=== PATIENT | female | born 1960 | race Caucasian/White ===

== ENCOUNTER 2019-12-09 12:36 | Outpatient (CLI) | payer BC, SELFPAY ==
--- NOTE | 2019-12-09 12:48 | MR_ITS ---
WS: [id number] MRI LUMBAR SPINE NONCONTRAST HISTORY: INTERVERTEBRAL DISC DISORDER WITH RADICULOPATHY OF LUMBOSACRAL SPINE COMPARISON: 08/05/2018 TECHNIQUE: Sagittal and axial multisequence imaging is submitted. Multilevel disc bulging and osteophytosis throughout the cervical and thoracic spines. Cord contact b y disc osteophyte disease at multiple levels. Most significant at C6-7, T5-6 and T9-10. Degenerative RIGHT rotoscoliosis of the lumbar spine with mild straightening. Severe disc space narrowing and desiccation and hypertrophic osteophyte formation throughout the lumb ar vertebral bodies. Reactive marrow edema involving the endplates of L1 and 2 and L4 and L5. Conus terminates normally at L2. L1-L2: Asymmetric disc bulging and osteophytosis. Disc bulges to the LEFT with mild contact on the ve ntral thecal sac. LEFT subarticular recess stenosis and mild foraminal stenosis. L2-L3: Diffuse asymmetric disc bulging greatest to the LEFT. Mild facet and ligamentum flavum arthrop athy. Mild LEFT subarticular recess stenosis. Similar to the prior study. There is an additional cent ral disc protrusion which is stable. L3-L4: Diffuse asymmetric disc bulging and osteophytosis. Disc is extending asymmetrically to the RIG HT. Central disc protrusion. Combination of factors is causing a mild central, RIGHT subarticular rec ess and foraminal stenosis. L4-L5: Diffuse asymmetric disc bulging with a central disc protrusion and marked facet arthropathy. M oderate RIGHT foraminal stenosis. Mild central, subarticular recess and LEFT foraminal stenosis. Tammy lar to the prior study. L5-S1: Diffuse asymmetric disc bulging and facet arthropathy. Central disc protrusion with foraminal stenosis. Severe bilateral foraminal stenosis, similar to the prior study. RIGHT renal cyst measures 1.2 cm. MR/MR lumbar spine wo con* [id number] IMPRESSION: 1. Moderate to severe multilevel advanced spondylitic changes throughout the l umbar spine without significant progression. 2. Severe bilateral foraminal stenosis at L5-S1 due to disc, osteophyte and fa cet disease. 3. Moderate to severe central L2-3 stenosis. No progression. 4. Moderate RIGHT foraminal stenosis at L4-5 without significant progression. 5. Additional mild, multilevel central, subarticular recess and foraminal sten osis as described above.
--- NOTE | 2019-12-09 12:50 | XR_ITS ---
WS: [id number] LATERAL LUMBAR SPINE: 3 view. Lateral radiographs are performed in upright neutral, flexion and extension to the patient's toleranc e. HISTORY: INTERVERTEBRAL DISC DISORDER WITH RADICULOPATHY OF LUMBOSACRAL COMPARISON: 04/13/2015 Severe multilevel degenerative disc disease and osteophytosis. Facet joint arthropathy. Large osteoph ytes extend anterior and posterior from the endplates. With flexion and extension no instability is evident. XR/XR lumbar spine f/e only [id number] IMPRESSION: Severe lumbar spondylosis without instability.
== END 2019-12-09 12:37 | disposition home or self-care (01) ==
LOC: RADWPI 12:39
PROVIDERS: Family Provider Family Medicine; PCP Family Medicine; Visit Provider Licensed Practical Nurse
DX: M51.17 Intervertebral disc disorders with radiculopathy, lumbosacral region (principal); M47.896 Other spondylosis, lumbar region; M48.07 Spinal stenosis, lumbosacral region; M48.061 Spinal stenosis, lumbar region without neurogenic claudication
CPT/HCPCS: 72120; 72148

== ENCOUNTER → 2020-01-05 08:31 | Outpatient (BNVA) | payer BC, SELFPAY | PROVIDERS: Family Provider Family Medicine; PCP Family Medicine; Referring Provider Licensed Practical Nurse; Visit Provider Psychiatry & Neurology Neurology | DX: M54.5 Low back pain (principal); M79.604 Pain in right leg; M79.605 Pain in left leg | CPT/HCPCS: 95886; 95909 ==

== ENCOUNTER 2020-10-11 10:30 | Outpatient (CLI) | payer BC, SELFPAY ==
--- NOTE | 2020-10-11 14:49 | PFTS_ITS ---
Date of Study:10/11/20 Date of Dictation: 10/13/2020 MECHANICS: Forced vital capacity (FVC) is normal. Forced expiratory volume in one second (FEV1) is . Normal FEV1/FVC is normal. FLOW VOLUME LOOP: Normal . LUNG VOLUMES: Not measured DIFFUSING CAPACITY FOR CARBON MONOXIDE: Not measured . INTERPRETATION: The spirometry is normal. MTDD
== END 2020-10-11 10:31 | disposition home or self-care (01) ==
PROVIDERS: PCP Family Medicine; Visit Provider Nurse Practitioner Family
DX: R06.02 Shortness of breath (principal)
CPT/HCPCS: 94010

== ENCOUNTER 2020-10-13 14:53 | Outpatient (CLI) | payer BC, SELFPAY ==
--- NOTE | 2020-10-13 14:57 | XR_ITS ---
WS: [id number] SCREENING DEXA SCAN [facility] CLINICAL INFORMATION: EARLY SURGICAL MENOPAUSE, SCREENING FOR OSTEOPOROSIS COMPARISON: None. FINDINGS: The L1-L4 bone mineral density measures 1.549 g/cm2. This corresponds to a T score score of 3.1 and Z score of 3.9. Left femoral neck bone mineral density measures 1.195 g/cm2. This corresponds to a T score of 1.5 and Z score of 2.1. Right femoral neck bone mineral density measures 1.216 g/cm2. This corresponds to a T score 1.7of and Z score of 2.3. Mean femoral neck bone mineral density measures 1.206 g/cm2. This corresponds to a T score of 1.6 and Z score of 2.2. XR/XR DEXA axial skeleton* [id number] IMPRESSION: Normal bone mineralization. Patient's FRAX calculated 10 year probability for major osteoporotic fracture i s 4.8 % and osteoporotic hip fracture is 0.1%.
== END 2020-10-13 14:54 | disposition home or self-care (01) ==
LOC: RADWPI 14:56
PROVIDERS: PCP Family Medicine; Visit Provider Nurse Practitioner Family
DX: Z13.820 Encounter for screening for osteoporosis (principal)
CPT/HCPCS: 77080

== ENCOUNTER 2020-10-28 20:00 | Outpatient (CLI) | payer BC, SELFPAY | END 2020-10-28 20:01 | disposition home or self-care (01) | LOC: SLEEP 10-29 10:18 | PROVIDERS: PCP Family Medicine; Visit Provider Nurse Practitioner Family | DX: R06.83 Snoring (principal); R53.83 Other fatigue; G47.33 Obstructive sleep apnea (adult) (pediatric) | CPT/HCPCS: 95810 ==

== ENCOUNTER 2021-02-10 20:00 | Outpatient (CLI) | payer BC, SELFPAY | END 2021-02-10 20:01 | disposition home or self-care (01) | LOC: SLEEP 02-11 10:24 | PROVIDERS: PCP Family Medicine; Visit Provider Nurse Practitioner Family | DX: G47.33 Obstructive sleep apnea (adult) (pediatric) (principal) | CPT/HCPCS: 95811 ==

== ENCOUNTER 2021-03-11 06:37 | Outpatient (CLI) | payer BC, SELFPAY ==
--- NOTE | 2021-03-11 06:47 | CT_ITS ---
WS: [id number] LDCT LUNG CANCER SCREENING TECHNIQUE: Noncontrast CT of the chest with coronal and sagittal reformatted images. CLINICAL INFORMATION: JLUIS DEPENDENT COMPARISON: September 2019 DLP: 52.6 mGy.cm DIvol: 1.[address] scans at [facility] use at least one of these dose optimization techniques: automat ed exposure control; mA and/or kV adjustment per patient size (includes targeted exams where dose is matched to clinical indication); or iterative reconstruction. FINDINGS: Mild chronic emphysematous changes. No acute pulmonary infiltrates. No focal pneumonia or pleural flu id. Atelectasis left lower lobe. Aortic calcification. No mediastinal or hilar lymphadenopathy. Adren al glands are normal. Normal GE junction. Lobulated lesion upper pole left kidney measuring 1.7 cm pr eviously demonstrated to represent renal cyst on prior ultrasound. Hypertrophic changes thoracic spin e. CT/CT lung screening [id number] IMPRESSION: LUNG-RADS: 2-Benign Appearance or Behavior FOLLOW UP: 12 Month: Continue annual screening with LDCT
== END 2021-03-11 06:38 | disposition home or self-care (01) ==
LOC: CT 06:38
PROVIDERS: PCP Family Medicine; Visit Provider Nurse Practitioner Family
DX: Z12.2 Encounter for screening for malignant neoplasm of respiratory organs (principal); F17.210 Nicotine dependence, cigarettes, uncomplicated
CPT/HCPCS: 71271

== ENCOUNTER 2021-04-15 10:43 | Outpatient (CLI) | payer BC, SELFPAY ==
--- NOTE | 2021-04-15 10:49 | MM_ITS ---
WS: [id number] BILATERAL SCREENING DIGITAL MAMMOGRAM WITH CAD HISTORY: SCREENING COMPARISON: 02/21/2019 Bilateral CC and MLO views submitted. Computer aided detection analyzed. Breast composition: There are scattered areas of fibroglandular density. No suspicious masses, microc alcifications or architectural distortion. Benign calcification LEFT breast. MM/[place] [id number] IMPRESSION: BI-RADS: 2-Benign FOLLOW UP: 1 Year Follow-up
== END 2021-04-15 10:44 | disposition home or self-care (01) ==
LOC: RADSHAW 10:47
PROVIDERS: PCP Family Medicine; Visit Provider Nurse Practitioner Family
DX: Z12.31 Encounter for screening mammogram for malignant neoplasm of breast (principal)
CPT/HCPCS: 77067

== ENCOUNTER 2021-06-29 13:37 | Outpatient (CLI) | payer BC, SELFPAY ==
--- NOTE | 2021-06-29 13:30 | USCV_ITS ---
Jennifer Wilson Age: 60 Gender: F : 1960 Exam Date: 06/29/2021 14:01 Ordering Phys: Merle Plummer MD ([email or web address]) Technologist: Kayla Moreno [place] [facility] [place]: SOB, CHEST PAIN BP: 130 / 80 HR: 71 Rhythm: Sinus Technical Quality: Adequate MEASUREMENTS (Male / Female) Normal Values 2D ECHO LV Diastolic Diameter PLAX 4.6 cm 4.2 - 5.9 / 3.9 - 5.3 cm LV Systolic Diameter PLAX 2.8 cm IVS Diastolic Thickness 1.3 cm 0.6 - 1.0 / 0.6 - 0.9 cm IVS Systolic Thickness 2.0 cm LVPW Diastolic Thickness 1.4 cm 0.6 - 1.0 / 0.6 - 0.9 cm LVPW Systolic Thickness 1.8 cm LVOT Diameter 2.0 cm LV Ejection Fraction 2D Teich 69.4 % LV Ejection Fraction MOD 2C 54.7 % LV Ejection Fraction 2C AL 52.2 % LA Diameter 2.6 cm LA Width 2.7 cm LA Height 3.8 cm RA Width 3.0 cm RA Height 3.9 cm Aorta at Sinotubular Diameter 2.5 cm DOPPLER AV Peak Velocity 151.0 cm/s LVOT Peak Velocity 92.0 cm/s AV Area Cont Eq vti 1.8 cm squared AV Area Cont Eq pk 2.0 cm squared MV Peak Velocity 107.0 cm/s MV Area PHT 5.0 cm squared Mitral E to A Ratio 1.0 MV E' Velocity 48.0 cm/s Mitral E to MV E' Ratio 7.8 Mitral E to LV E' Lateral Ratio 7.5 Mitral E to LV E' Septal Ratio 8.2 TR Peak Velocity 364.2 cm/s TR Peak Gradient 53.0 mmHg TR Mean Velocity 466.7 cm/s TR Mean Gradient 85.6 mmHg TR Velocity Time Integral 155.6 cm TV Peak E Velocity 60.0 cm/s Right Atrial Pressure 3.0 mmHg Pulmonary Artery Systolic Pressu 56.0 mmHg PV Peak Velocity 92.0 cm/s RV Acceleration Time 0.1 s RV Ejection Time 0.3 s RV AcT/ET 0.2 FINDINGS Left Ventricle Normal left ventricular cavity size. Normal left ventricular systolic function. No regional wall motion abnormalities. Left ventricular ejection fraction is estimated at 60 %. Grade I/IV diastolic dysfunction (abnormal relaxation filling pattern), normal to mildly elevated filling pressures. Right Ventricle The right ventricle is normal in size and function. Moderate pulmonary hypertension, RVSP 56 mmHg. Right Atrium The right atrium is normal in size. Left Atrium The left atrium is normal in size. Mitral Valve Moderately thickened mitral valve. Moderate mitral annular calcification. No mitral valve stenosis. No mitral valve regurgitation. Aortic Valve Structurally normal aortic valve without significant sclerosis or stenosis. There is no aortic regurgitation. Tricuspid Valve Mild tricuspid valve regurgitation. Pulmonic Valve Structurally normal pulmonic valve without significant stenosis. There is no pulmonic regurgitation. Pericardium Normal pericardium without effusion. Aorta Normal ascending aorta dimension. CONCLUSIONS 1-Normal left ventricular cavity size. Normal left ventricular systolic function. No regional wall motion abnormalities. Left ventricular ejection fraction is estimated at 60 %. Grade I/IV diastolic dysfunction (abnormal relaxation filling pattern), normal to mildly elevated filling pressures. 2-No significant valve abnormalities. 3-There is no pericardial effusion. 4-The right ventricle is normal in size and function. Moderate pulmonary hypertension, RVSP 56 mmHg. 5-Right atrial pressure is around 15 mm of mercury. 6-No significant change since the prior echocardiogram study of 04/13/2016. Merle Plummer MD (Electronically Signed) Final Date: 06 July 2021 21:45 S
== END 2021-06-29 13:38 | disposition home or self-care (01) ==
LOC: RAD 13:42
PROVIDERS: PCP Family Medicine; Visit Provider Internal Medicine Cardiovascular Disease
DX: R06.02 Shortness of breath (principal); R07.9 Chest pain, unspecified; I27.20 Pulmonary hypertension, unspecified
CPT/HCPCS: 93306

== ENCOUNTER 2022-11-11 10:56 | Observation (INO) | payer BC, SELFPAY ==
[2022-11-11] VITALS (72 sets, daily range): BP systolic 80–123; BP diastolic 54–82; PULSE 68–121; RESP 8–26; TEMP 36.8; O2SAT 82–100
--- NOTE | 2022-11-11 11:00 | PC.NURSE ---
PT NOTED TO HAVE CRACKLES IN LUNG BASES BILATERAL UPON AUSCULTATION
--- NOTE | 2022-11-11 11:00 | ECG_ITS ---
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 Measurements Intervals [place] Rate: 120 P: 58 WI: 162 QRS: 84 QRSD: 77 T: 51 QT: 370 QTc: 523 Interpretive Statements SINUS TACHYCARDIA NONSPECIFIC T-WAVE ABNORMALITY Compared to ECG 11/05/2016 23:26:16 Short WI interval no longer present T-wave abnormality still present Electronically Signed On 11-12-2022 8:21:16 REINFORCING METAL WORKER by Charlotte Baron M.D. [id number]
[2022-11-11 11:02] LABS: Glucose Point of Care 252 mg/dL (70-110)
--- NOTE | 2022-11-11 11:06 | CTR_ITS ---
PROCEDURE INFORMATION: Exam: CT Head Without Contrast Exam date and time: 11/11/2022 12:05 PM Age: 61 years old Clinical indication: Altered mental status/memory loss; Additional info: AMS TECHNIQUE: Imaging protocol: Computed tomography of the head without contrast. Radiation optimization: All CT scans at this facility use at least one of these dose optimization techniques: automated exposure control; mA and/or kV adjustment per patient size (includes targeted exams where dose is matched to clinical indication); or iterative reconstruction. COMPARISON: No relevant prior studies available. RADIATION DOSE METRICS: Total DLP (mGy-cm): 1055.88 FINDINGS: Brain: Normal. No hemorrhage. Unremarkable white matter. No mass effect. Cerebral ventricles: No ventriculomegaly. Paranasal sinuses: Visualized sinuses are unremarkable. No fluid levels. Mastoid air cells: Visualized mastoid air cells are well aerated. Bones/joints: Unremarkable. No acute fracture. Soft tissues: Unremarkable. CT/CT head wo con* [id number] IMPRESSION: No acute intracranial abnormality.
[2022-11-11 11:08] LABS: ABG PCO2 54.2 mmHg (35-45); ABG PH Result 7.35 (7.35-7.45); Alveolar-Arterial Oxygen Gradi 3.4 mmHg (5-10); Arterial Blood Gas Hematocrit 42.8 % (37-47); Base Excess ABG 3.3 mmol/L (-2.0-2.0); Blood Gas Allen Test Pos; Blood Gas Operator Identificat WALCI; Blood Gas Sample Site Radial, left; Blood Gas Sample Type Arterial; Carboxyhemoglobin 4.9 %THgb (0.4-20.1); HCO3 ABG 30.2 mmol/L (22-26); HGB O2 Sat 88.5 % (95-100); Ionized Calcium Level - ABG 1.2 mmol/L (1.1-1.4); Methemoglobin 0.4 % (0.4-1.5); Oxygen Device NC; Oxygen Saturation ABG 93.4; PO2 ABG 59.5 mmHg (80.0-100.0); Potassium Level - ABG 3.7 mmol/L (3.5-5.0)
--- NOTE | 2022-11-11 11:09 | ED_ITS ---
HPI - General Adult General: Chief complaint: Shortness of Breath/Dyspnea Stated complaint: RESP DISTRESS; AMS Time Seen by Provider: 11/11/22 11:04 Source: patient Mode of arrival: ambulatory History of Present Illness: 61-year-old female brought in by EMS. The field report was that she was in respiratory distress and unresponsive with a GCS of 7. She was given Narcan in the field although they states she did not have significant response to it. Her oxygen sat initially on room air was 70%. She is also given 125 of Solu-Medrol. She does wear CPAP at home has not been wearing it last night. Patient became more responsive during the course of the visit while the work-up was being completed family and was at the bedside. Patient tells me initially said she was not sick until last night later in the conversation she did states she did been coughing intermittently for the last couple of weeks. Family was concerned this morning because she had not showed up for something she was anticipated to be at and they went over to check on her they found her poorly responsive and she had vomited they aroused her health a helena cleaned up but she remained in bed and continued to not respond well and seemed to have difficulty breathing when it daughter went back to check on her she reported her as being cyanotic. EMS was called and they brought her to the emergency room. When she arrived here she was drowsy but was able to answer questions she knew where she was what time it was in what it occurred EMS was called. She became more more alert and awake during the course of the ER visit while work-up was being done. She denies any chest or abdominal pain she does recall that she vomited. She does admit to the use of marijuana marijuana but denies use of any other drugs or alcohol last night. Onset (ago): day(s) Severity: severe Relieving factors: none Exacerbating factors: none Associated symptoms: Reports confusion, cough, decreased appetite, malaise, nausea and short of breath; Deny chest pain, diaphoresis, dyspnea, fevers/chills, headache(s), rash, palpita tions, seizures, syncope, vomiting or weakness Treatments prior to arrival: other (Oxygen DuoNebs Narcan and Solu-Medrol) Review of Systems Const: Reports: malaise; Denies: fever(s), chills, fatigue or diaphoresis ENMT: Denies: throat pain, ear or mastoid pain, nasal discharge or nasal congestion Card: Denies: chest pain, palpitations or syncope Resp: Denies: dyspnea, productive cough, non-productive cough or wheezing GI: Reports: nausea; Denies: abdominal pain, vomiting or diarrhea : Denies: flank pain, difficulty voiding, dysuria, urinary frequency or urinary urgency Skin/Breast: Denies: rash Neuro: Reports: confusion; Denies: headache(s) PFSH ED PFSH: Medical History Anxiety disorder COPD (chronic obstructive pulmonary disease) Depression Displacement of lumbar disc with radiculopathy Fibromyalgia Hypercholesterolemia Surgical History H/O section H/O: hysterectomy History of carpal tunnel surgery Family History Grandfather CAD (coronary artery disease) Grandmother CAD (coronary artery disease) Diabetes Hypertension Brother Diabetes Father Hypertension Mother Hypertension Social History Alcohol intake: never Lives independently: Yes Household members: spouse Marital status: Current occupational status: employed History of recent travel: No Physical Exam Const: COMMON NORMALS: no acute distress GENERAL APPEARANCE: cooperative and comfortable ORIENTATION/CONSCIOUSNESS: Yes awake, Yes oriented to person, Yes oriented to place and Yes oriented to time HENMT: COMMON NORMALS: normocephalic and atraumatic HEAD & SCALP: normocephalic and atraumatic Resp: AUSCULTATION: rhonchi, wheezes and diminished lung sounds on the right Cardio: COMMON NORMALS: regular rhythm and No murmurs present (Cardio) RATE: tachycardic RHYTHM: regular rhythm GI: COMMON NORMALS: Soft to palpation and No hepatosplenomegaly present AUSCULTATION: Yes normoactive bowel sounds PALPATION: Yes Soft to palpation, No Tenderness to palpation present (GI), No Guarding due to palpation present ( GI) and Yes No hepatosplenomegaly present Extremity: COMMON NORMALS: normal to inspection, capillary refill normal, no clubbing, cyanosis or edema, no calf tenderness and no pedal edema Neuro: SENSORIUM/ORIENTATION: Yes oriented to person, Yes oriented to place and Yes oriented to time Skin: COMMON NORMALS: no rashes or lesions noted GENERAL SKIN EXAM: no rashes or lesions noted Course Vital Signs: Vital signs: Vital Signs Pulse Rate 104 H 11/11/22 11:25 Respiratory Rate 16 11/11/22 11:25 Blood Pressure 120/62 11/11/22 11:25 Pulse Oximetry 95 11/11/22 11:25 Oxygen Delivery Me thod 11/11/22 11:03 Oxygen Flow Rate 2 11/11/22 11:20 MDM - General Adult Medical Decision Making Multilobar pneumonia on the right. Patient desats significantly with minimal ambulation at the bedside when on room air. She desatted into the mid low 80s. With a history of concerned about aspiration. Patient has listed allergy to penicillin but when I asked her she cannot recall what happened she is taken multiple rounds of amoxicillin and Augmentin as an adult without any complications allergy was removed from her list she started on Zosyn and Levaquin. Discussed with hospitalist orders written will admit to the ICU because of her presenting nonresponsiveness and fairly significant hypoxia. Medical Records I reviewed the patient's medical records. Lab Data I reviewed the patient's lab results. 11/11/22 11:11 11/11/22 11:[address] 11/11/22 11:06 IMPRESSION: No acute intracranial abnormality. Chest X-Ray 11/11/22 11:59 IMPRESSION: 1. Multifocal areas of patchy density in the right lung are noted, most consistent with infectious infiltrates. 2. Degenerative changes of the spine. ADDENDUM: 11/11/22 [id number] THIS REPORT CONTAINS FINDINGS THAT MAY BE CRITICAL TO PATIENT CARE. The findings were verbally communicated via telephone conference with JOSE Flynn at 12:25 PM INFORMATION CLERK [employer] on 11/11/2022. The findings were acknowledged and understood. Laboratory Results WBC 9.1 10^3/uL (4.0-10.0) 11/11/22 11:11 RBC 4.76 10^6/uL (4.1-5.3) 11/11/22 11:11 Hgb 14.2 g/dL (11.5-15.3) 11/11/22 11:11 Hct 44.4 % (37.0-47.0) 11/11/22 11:11 MCV 93.3 fl (81-99) 11/11/22 11:11 MCH 29.8 pg (28.0-34.0) 11/11/22 11:11 MCHC 32.0 g/dL (30.0-36.0) 11/11/22 11:11 RDW 13.7 % (12.1-15.1) 11/11/22 11:11 Plt Count 244 10^3/cmm (130-400) 11/11/22 11:11 MPV 9.7 fL (7.4-10.4) 11/11/22 11:11 Neut % (Auto) 87.5 % 11/11/22 11:11 Lymph % (Auto) 10.8 % 11/11/22 11:11 [place] % (Auto) 1.1 % 11/11/22 11:11 Eos % (Auto) 0.1 % 11/11/22 11:11 Baso % (Auto) 0.3 % 11/11/22 11:11 Neut # (Auto) 7.92 10^3/uL (1.8-7.7) H 11/11/22 11:11 Lymph # (Auto) 1.0 10^3/uL (0.8-4.8) 11/11/22 11:11 [place] # (Auto) 0.1 10^3/uL (0.2-0.9) L 11/11/22 11:11 Eos # (Auto) 0.0 10^3/uL (0.0-0.8) 11/11/22 11:11 Baso # (Auto) 0.0 10^3/uL (0.0-0.1) 11/11/22 11:11 Nucleated RBC % (auto) 0 % 11/11/22 11:11 Nucleated RBCs # 0.0 /100WBC 11/11/22 11:11 Specimen Type Arterial 11/11/22 11:00 Sample Site Radial, left 11/11/22 11:00 ABG pH 7.35 (7.35-7.45) 11/11/22 11:00 ABG pCO2 54.2 mmHg (35-45) H 11/11/22 11:00 ABG pO2 59.5 mmHg (80.0-100.0) L 11/11/22 11:00 ABG HCO3 30.2 mmol/L (22-26) H 11/11/22 11:00 ABG O2 Saturation 93.4 11/11/22 11:00 ABG Base Excess 3.3 mmol/L (-2.0-2.0) H 11/11/22 11:00 Ramo Test Pos 11/11/22 11:00 A-a O2 Gradient 3.4 mmHg (5-10) L 11/11/22 11:00 Hematocrit 42.8 % (37-47) 11/11/22 11:00 Hgb O2 Saturation 88.5 % (95-100) L 11/11/22 11:00 Carboxyhemoglobin 4.9 %THgb (0.4-20.1) 11/11/22 11:00 Methemoglobin 0.4 % (0.4-1.5) 11/11/22 11:00 Total Hemoglobin 14.0 g/dL (12-16) 11/11/22 11:00 Sodium 140.0 mmol/L (131-143) 11/11/22 11:00 Potassium 3.7 mmol/L (3.5-5.0) 11/11/22 11:00 Glucose 161.0 mg/dL (70-115) H 11/11/22 11:00 Ionized Calcium 1.2 mmol/L (1.1-1.4) 11/11/22 11:00 O2 Delivery Device Nc 11/11/22 11:00 O2 Liters/Min 2.0 % 11/11/22 11:00 Cable Installation Technician ID [place] 11/11/22 11:00 Sodium 142 mmol/L (136-145) 11/11/22 11:33 Potassium 3.6 mmol/L (3.5-5.1) 11/11/22 11:33 Chloride 98 mmol/L (98-107) 11/11/22 11:33 Carbon Dioxide 31 mmol/L (22-29) H 11/11/22 11:33 Anion Gap 16.6 (5-19) 11/11/22 11:33 BUN 33 mg/dL (8-23) H 11/11/22 11:33 Creatinine 1.0 mg/dL (0.5-0.9) H 11/11/22 11:33 GFR Calculation 56.6 mL/min (90-130) L 11/11/22 11:33 Glucose 156 mg/dL (65-115) H 11/11/22 11:33 POC Glucose 252 mg/dL (70-110) H 11/11/22 10:59 Estimat Average Glucose 114 11/11/22 11:11 Hemoglobin A1c 5.6 % (4.0-6.0) 11/11/22 11:11 Calculated Osmolality 304 mOsm/kg (285-295) H 11/11/22 11:33 Calcium 9.3 mg/dL (8.5-10.5) 11/11/22 11:33 Magnesium 2.0 mg/dL (1.7-2.3) 11/11/22 11:33 Total Bilirubin 0.3 mg/dL (0.15-1.2) 11/11/22 11:33 AST 16 U/L (0-32) 11/11/22 11:33 ALT 16 U/L (0-33) 11/11/22 11:33 Alkaline Phosphatase 83 U/L (35-105) 11/11/22 11:33 Troponin T Baseline 20 ng/L (0-10) H 11/11/22 11:33 Total Protein 6.2 g/dL (6.6-8.7) L 11/11/22 11:33 Albumin 4.0 g/dL (3.5-5.2) 11/11/22 11:33 Globulin 2.2 g/dL (1.3-4.6) 11/11/22 11:33 Urine Color Yellow (Yellow) 11/11/22 11:39 Urine Appearance Clear (CLEAR) 11/11/22 11:39 Urine pH 5 (5-7) 11/11/22 11:39 Ur Specific [place] 1.025 (1.005-1.030) 11/11/22 11:39 Urine Protein 1+ (Negative) H 11/11/22 11:39 Urine Glucose (UA) Norm (Normal) 11/11/22 11:39 Urine Ketones Negative (Negative) 11/11/22 11:39 Urine Blood 2+ (Negative) H 11/11/22 11:39 Urine Nitrate Negative (Negative) 11/11/22 11:39 Urine Bilirubin Neg (Negative) 11/11/22 11:39 Urine Urobilinogen Norm mg/dL (Negative) 11/11/22 11:39 Ur Leukocyte Esterase Trace (Negative) H 11/11/22 11:39 Urine RBC 0-4 /hpf (0-2) H 11/11/22 11:39 Urine WBC 5-10 /hpf (0-5) H 11/11/22 11:39 Ur Squamous Epith Cells 5-10 /hpf (0-5) H 11/11/22 11:39 Amorphous Sediment Not Reportable 11/11/22 11:39 Urine Bacteria 1+ /hpf (NONE) H 11/11/22 11:39 Hyaline Casts 25-40 /lpf H 11/11/22 11:39 Urine Mucus 2+ /hpf 11/11/22 11:39 Urine Opiates Screen Negative ng/mL (Negative) 11/11/22 11:39 Ur Barbiturates Screen Negative ng/mL (Negative) 11/11/22 11:39 Ur Phencyclidine Scrn Negative ng/mL (Negative) 11/11/22 11:39 Ur Amphetamines Screen Negative ng/mL (Negative) 11/11/22 11:39 U Benzodiazepines Scrn Negative ng/mL (Negative) 11/11/22 11:39 Urine Cocaine Screen Negative ng/mL (Negative) 11/11/22 11:39 U Marijuana (THC) Screen Positive ng/mL (Negative) H 11/11/22 11:39 Discharge Plan Discharge Patient Disposition: Admitted As Inpatient Clinical Impression: Aspiration pneumonia, Acute exacerbation of chronic obstructive airways disease Condition: Stable Prescriptions: No Action isosorbide mononitrate 30 mg tablet extended release 24 hr 30 mg PO BID Qty: 90 3RF fluticasone propion-salmeterol [Advair Diskus] 100-50 mcg/dose blister with device 1 puff INHALATION BID albuterol sulfate [Ventolin HFA] 90 mcg/actuation HFA aerosol inhaler 2 puff INHALATION Q6H PRN omega-3 fatty acids 500 mg capsule 500 mg PO BID gabapentin 600 mg tablet 600 mg PO TID pantoprazole [Protonix] 40 mg tablet,delayed release (DR/EC) 40 mg PO DAILY cyclobenzaprine 10 mg tablet 10 mg PO TID duloxetine [Cymbalta] 60 mg capsule,delayed release(DR/EC) 90 mg PO DAILY hydrochlorothiazide 12.5 mg tablet 25 mg PO DAILY Excedrin Extra Strength 250-250-65 mg tablet 1 tab PO Q6H PRN naproxen sodium [Aleve] 220 mg tablet 220 mg PO BID PRN montelukast [Singulair] 10 mg tablet 10 mg PO DAILY cetirizine [Zyrtec] 10 mg tablet 10 mg PO DAILY alprazolam 0.25 mg tablet 0.25 mg PO BID PRN nitroglycerin [Nitrostat] 0.4 mg tablet, sublingual 0.4 mg sublingual Q5M PRN (Reason: chest pain) Qty: 25 3RF Rx Instructions: do not exceed 3 doses per episode meloxicam 15 mg tablet 15 mg PO DAILY Qty: 14 0RF metoprolol tartrate 25 mg tablet 37.5 mg PO BID Qty: 90 6RF rosuvastatin 20 mg tablet 20 mg PO DAILY Qty: 90 3RF rosuvastatin 20 mg tablet 20 mg PO DAILY Qty: 30 0RF Rx Instructions: MUST have follow-up with new provider for further refills Referrals: Randy Roy Jr, MD [Primary Care Provider] - Coding Level of Care Code ED Public Relations for Riri Barnes
[2022-11-11 11:21] LABS: Basophils % 0.3 %; Eosinophils % 0.1 %; Hematocrit 44.4 % (37.0-47.0); Hemoglobin 14.2 g/dL (11.5-15.3); Lymphocytes % 10.8 %; Mean Corpuscular Hemoglobin 29.8 pg (28.0-34.0); Mean Corpuscular Volume 93.3 fl (81-99); Mean Platelet Volume 9.7 fL (7.4-10.4); Monocytes # 0.1 10^3/uL (0.2-0.9); Monocytes % 1.1 %; Neutrophils # 7.92 10^3/uL (1.8-7.7); Neutrophils % 87.5 %; Nucleated Red Blood Cells % 0 %; Platelet Count 244 10^3/cmm (130-400); Red Blood Count 4.76 10^6/uL (4.1-5.3); Red Cell Distribution Width 13.7 % (12.1-15.1); White Blood Count 9.1 10^3/uL (4.0-10.0)
--- NOTE | 2022-11-11 11:28 | PC.NURSE ---
PT PLACED ON CONTINUOUS NIBP, SPO2, AND CM
[2022-11-11 11:53] LABS: Urine Color Yellow (Yellow)
[2022-11-11 11:54] LABS: Add Urine Microscopic? YES; Bacteria Urine 1+ /hpf; Bilirubin Urine Neg (Negative); Blood Urine 2+ (Negative); Glucose Urine UA Norm (Normal); Hyaline Casts Urine 25-40 /lpf; Ketones Urine Negative (Negative); Leukocyte Esterase Urine Trace (Negative); Mucus Urine 2+ /hpf; Nitrate Urine Negative (Negative); Protein Urine 1+ (Negative); RBC Urine 0-4 /hpf (0-2); Specific Gravity, Urine 1.025 (1.005-1.030); Urine Appearance Clear (CLEAR); Urobilinogen Urine Norm (Negative); pH Urine 5 (5-7)
[2022-11-11 11:55] LABS: Add Urine Culture? No
[2022-11-11 11:57] LABS: Amphetamines Screen Urine Negative (Negative); Barbiturates Screen Urine Negative (Negative); Benzodiazepines Screen Urine Negative (Negative); Cocaine Screen Urine Negative (Negative); Opiate Screen Urine Negative (Negative); PCP Screen Urine Negative (Negative); THC Screen Urine Positive (Negative)
--- NOTE | 2022-11-11 11:59 | XRR_ITS ---
PROCEDURE INFORMATION: Exam: XR Chest Exam date and time: 11/11/2022 12:12 PM Age: 61 years old Clinical indication: Shortness of breath; Additional info: Dyspnea/cough TECHNIQUE: Imaging protocol: Radiologic exam of the chest. Views: 1 view. COMPARISON: CT lung screening [id number] 03/11/2021 7:10 AM FINDINGS: Lungs: Regions of moderate patchy density throughout the right lung appear new. The lungs are mildly hypoinflated. Pleural spaces: Unremarkable. No pleural effusion. No pneumothorax. Heart/Mediastinum: Unremarkable. No cardiomegaly. Bones/joints: Degenerative spondylosis throughout the visualized spine appears moderate. XR/XR chest 1V portable [id number] IMPRESSION: 1. Multifocal areas of patchy density in the right lung are noted, most consistent with infectious infiltrates. 2. Degenerative changes of the spine.
[2022-11-11 12:00] LABS: Alanine Aminotransferase 16 U/L (0-33); Alkaline Phosphatase 83 U/L (35-105); Anion Gap 16.6 (5-19); Aspartate Amino Transferase 16 U/L (0-32); Blood Urea Nitrogen 33 mg/dL (8-23); Calcium 9.3 mg/dL (8.5-10.5); Carbon Dioxide 31 mmol/L (22-29); Chloride 98 mmol/L (98-107); Globulin 2.2 g/dL (1.3-4.6); Glomerular Filtration Rate 56.6 mL/min (90-130); Glucose 156 mg/dL (65-115); Osmolality Calculated 304 mOsm/kg (285-295); Potassium 3.6 mmol/L (3.5-5.1); Sodium 142 mmol/L (136-145); Total Bilirubin 0.3 mg/dL (0.15-1.2); Total Protein 6.2 g/dL (6.6-8.7)
[2022-11-11 12:02] LABS: Troponin(5th) Baseline 20 ng/L (0-10)
[2022-11-11 12:03] LABS: Estmated Average Glucose 114; Hemoglobin A1C 5.6 % (4.0-6.0)
--- NOTE | 2022-11-11 12:30 | PC.NURSE ---
PT AMBULATED. PT GAIT SATISFACTORY. PT DENIES DIZZINESS OR LIGHTHEADEDNESS
--- NOTE | 2022-11-11 13:07 | ECG_ITS ---
[facility] Test Date: 2022-11-11 Pat Name: Jennifer Wilson Department: Room: Gender: Female [employer] Operator: : 1960 Requested By: Jose Chacon Order Number: [id number] Ying MD: Charlotte Baron M.D. Measurements Intervals [place] Rate: 89 P: 49 TN: 141 QRS: 65 QRSD: 93 T: 30 QT: 361 QTc: 441 Interpretive Statements SINUS RHYTHM WITH MARKED SINUS ARRHYTHMIA Compared to ECG 11/11/2022 11:00:56 Sinus tachycardia no longer present T-wave abnormality no longer present Electronically Signed On 11-12-2022 8:28:50 MANAGER PUBLISHING by Charlotte Baron M.D. [id number]
[2022-11-11] MEDS: levofloxacin-dextrose 5 % 750 MG/150 ML PREMIX 100 MG IV (13:20)
[2022-11-11 13:21] LABS: Lactic Sepsis W/Reflex 3.2 mmol/L (0.5-2.2)
[2022-11-11] MEDS: piperacillin-tazobactam 4.5 GM in sodium chloride 0.9% (plus) 50 ML IV (13:22)
--- NOTE | 2022-11-11 13:32 | P.HP_ITS ---
Providers/Chief Complaint Primary Care Provider: Randy Roy Jr, MD Chief Complaint: RESP DISTRESS; AMS History of Present Illness Jennifer Wlison is a 61 year old female with past medical history of COPD hypertension, fibromyalgia, displacement of lumbar disc with radiculopathy was brought from home after family found her completely unconscious, as well as hypoxic, as well as with extremely variable heart rate, when EMS arrived at the scene, according to them the GCS was 7, Narcan was tried, and was brought in to the ER, when patient arrived in the ER she had improved, she was more coherent, when I examined the patient, family was at bedside, patient was alert awake oriented x3, she did not recall exactly what happened, family informed the above occurrence. CT head without contrast: No acute intracranial pathology, X-ray chest: Has shown dense right-sided infiltrate, EKG: Sinus rhythm, ABG: pH 7.35 PCO2 54, PO2 59, bicarb 30, FiO2 on 28% Pertinent labs: WBC 9.1, H&H 14/44 PLT : 244 , lactic acid 3.2, serum sodium 142, serum potassium 3.6, BUN 33 serum creatinine 1, random blood sugar 156, 2- hour troponin trend: Unremarkable, UA suggestive of possible UTI. Patient received Zosyn and levofloxacin in the ER. Review of Systems General: Reports: 10 or more systems reviewed and unremarkable except in HPI and below Const: Denies: fever(s), chills, body aches, change in appetite or diaphoresis Card: Denies: palpitations, edema, swelling of feet/ankles, dyspnea on exertion, orthopnea or leg pain with exertion Resp: Denies: dyspnea, productive cough, wheezing or pain on inspiration GI: Denies: abdominal pain, nausea, vomiting, diarrhea or constipation : Denies: flank pain Musc: Denies: back pain, extremity pain or extremity swelling Neuro: Denies: headache(s) or difficulty walking Medications/Allergies Home Medications Medication Instructions Recorded Confirmed Last Taken Type albuterol sulfate 90 mcg/actuation 2 puff inhalation Q6H PRN 02/17/20 11/11/22 Unknown History aerosol inhaler (Ventolin HFA) Shortness Of Breath cyclobenzaprine 10 mg tablet 10 mg PO TID 02/17/20 11/11/22 11/10/22 History fluticasone 100 mcg-salmeterol 50 1 puff inhalation BID 02/17/20 11/11/22 11/10/22 History mcg/dose blistr powdr for inhalation (Advair Diskus) omega-3 fatty acids 500 mg capsule 500 mg PO BID 02/17/20 11/11/22 11/10/22 History pantoprazole 40 mg tablet,delayed 40 mg PO DAILY 02/17/20 11/11/22 11/10/22 History release (Protonix) yprnzdl-[id number]-jvvdrjhc 250 1 tab PO Q6H PRN Pain 05/11/21 11/11/22 Unknown History mg-250 mg-65 mg tablet (Excedrin Extra Strength) cetirizine 10 mg tablet (Zyrtec) 10 mg PO DAILY 05/11/21 11/11/22 11/10/22 History duloxetine 60 mg capsule,delayed 90 mg PO DAILY 05/11/21 11/11/22 11/10/22 History release (Cymbalta) montelukast 10 mg tablet 10 mg PO DAILY 05/11/21 11/11/22 11/10/22 History (Singulair) naproxen sodium 220 mg tablet 220 mg PO BID PRN Pain 05/11/21 11/11/22 Unknown History (Aleve) nitroglycerin 0.4 mg sublingual 0.4 mg sublingual Q5M PRN chest 05/11/21 11/11/22 Unknown Rx tablet (Nitrostat) pain #25 tabs hydrochlorothiazide 12.5 mg tablet 25 mg PO DAILY 11/25/21 11/11/22 Unknown History isosorbide mononitrate 30 mg 30 mg PO BID #90 tabs 11/25/21 11/11/22 11/10/22 Rx tablet,extended release 24 hr metoprolol tartrate 25 mg tablet 37.5 mg PO BID #90 tabs 11/30/21 11/11/22 11/10/22 Rx rosuvastatin 20 mg tablet 20 mg PO DAILY #30 tabs 08/29/22 11/11/22 11/10/22 Rx meloxicam 15 mg tablet 15 mg PO DAILY #14 tabs 09/10/22 11/11/22 11/10/22 Rx alprazolam 0.5 mg tablet 0.5 mg PO BEDTIME PRN Anxiety 11/11/22 11/11/22 11/10/22 History gabapentin 800 mg tablet 800 mg PO TID 11/11/22 11/11/22 Unknown History Allergies Allergy/AdvReac Type Severity Reaction Status Date / Time acetaminophen [From Percocet] Allergy Mild Hives Verified 09/10/22 14:48 morphine Allergy Mild Rash/itchin Verified 09/10/22 14:48 g oxycodone [From Percocet] Allergy Mild Hives Verified 09/10/22 14:48 PFSH Acute PFSH: Medical History Anxiety disorder COPD (chronic obstructive pulmonary disease) Depression Displacement of lumbar disc with radiculopathy Fibromyalgia Hypercholesterolemia Surgical History H/O section H/O: hysterectomy History of carpal tunnel surgery Family History Grandfather CAD (coronary artery disease) Grandmother CAD (coronary artery disease) Diabetes Hypertension Brother Diabetes Father Hypertension Mother Hypertension Social History Alcohol intake: never Lives independently: Yes Household members: spouse Marital status: Current occupational status: employed History of recent travel: No Vitals/I&O/Wt Last Vital Signs Pulse 104 H 11/11/22 11:25 Resp 16 11/11/22 11:25 BP 120/62 11/11/22 11:25 Pulse Ox 95 11/11/22 11:25 O2 Del Method 11/11/22 11:03 O2 Flow Rate 2 11/11/22 11:20 Physical Exam Const: COMMON NORMALS: patient oriented x3 HENMT: COMMON NORMALS: normocephalic, atraumatic, hearing grossly normal bilaterally and external ears normal HEAD & SCALP: normocephalic and atraumatic EXTERNAL EAR: Yes external ears normal Eye: COMMON NORMALS: no scleral icterus GENERAL EYE: appearance normal, both eyes and all related structures Resp: COMMON NORMALS: clear to auscultation bilaterally AUSCULTATION: clear to auscultation bilaterally Cardio: COMMON NORMALS: regular rate, regular rhythm, S1 normal heart sound present, S2 normal heart sound present, No gallops present (Cardio), No murmurs present (Cardio), No rub (Cardio) and Peripheral pulses 2+ throughout RATE: regular rate RHYTHM: regular rhythm HEART SOUNDS: S1 normal heart sound present and S2 normal heart sound present PERIPHERAL PULSES: Peripheral pulse s 2+ throughout GI: COMMON NORMALS: Normal to inspection, nondistended, normoactive bowel sounds present, Soft to palpation, non-tender, No hepatosplenomegaly present and no masses AUSCULTATION: Yes normoactive bowel sounds PALPATION: Yes Soft to palpation and Yes No hepatosplenomegaly present RECTAL EXAM: deferred Extremity: COMMON NORMALS: no clubbing, cyanosis or edema and no pedal edema Neuro: COMMON NORMALS: patient oriented x3 Data 11/11/22 11:11 11/11/22 11:33 Micro: Microbiology 11/11/22 12:52 Blood Culture - Preliminary Blood SPECIMEN COLLECTED 11/11/22 12:55 Blood Culture - Preliminary Blood SPECIMEN COLLECTED A&P Assessment and plan (1) Altered mental status: (2) Pneumonia: (3) HTN (hypertension) with goal to be determined: (4) COPD (chronic obstructive pulmonary disease): (5) UTI (urinary tract infection): Plan 61 year old female with past medical history of COPD hypertension, fibromyalgia, displacement of lumbar disc with radiculopathy was brought from home after family found her completely unconscious. Assessment: Altered mental status currently unclear etiology, possible UTI Pneumonia, possible aspiration Possible UTI COPD Hypertension H/O fibromyalgia H/O displacement of lumbar disc with radiculopathy Plan: Follow blood culture Sputum gram stain and culture Urine Legionella antigen Bacterial antigen panel Procalcitonin MRSA PCR Continue Vanco and Zosyn for now Monitor x-ray chest Monitor ABG Monitor intake output charting CODE STATUS: Full code DVT prophylaxis: On Lovenox Attestations Medical Necessity Statement*: Patient is still in hospital for management of pneumonia, anticipated length of stay greater than 2 midnights. Time Spent in Patient Care: Greater than 35 minutes (>than 50% of time spent in counselling and/or direct pt care on unit) . Coding Level of Care Code Acute Commercial Real Estate Attorney for [facility] Fwd Exam Detailed Diagnoses Altered mental status R41.82 Pneumonia J18.9 HTN (hypertension) with goal to be determined I10 COPD (chronic obstructive pulmonary disease) J44.9 UTI (urinary tract infection) N39.0
[2022-11-11 14:08] LABS: Troponin 5 2HR 27.69 ng/L (0-10)
[2022-11-11] MEDS: enoxaparin 40 mg/0.4 mL Syringe SUBCUT (14:18)
[2022-11-11 14:22] LABS: Troponin 5 2HR Delta 7.69 ABS# (0-10)
[2022-11-11 14:25] LABS: Reflex Lactate Order REFLEX LACTIC ORDERD
--- NOTE | 2022-11-11 14:37 | PC.NURSE ---
Patient arrived at 1430 from ER patient is A&Ox4
[2022-11-11] MEDS: sodium chloride 0.9% 1,000 ML 100 ML IV (14:45)
[2022-11-11] MEDS: vancomycin 1,000 MG in sodium chloride 0.9% 250 ML 250 MG IV (14:47)
[2022-11-11 14:52] LABS: Adenovirus Not Detected (NOT DETECT); Chlamydia Pneumoniae Not Detected (NOT DETECT); Coronavirus 229E,HKU1,NL63,OC4 Not Detected (NOT DETECT); Human Metapneumovirus Not Detected (NOT DETECT); Human Rhinovirus/Enterovirus Not Detected (NOT DETECT); Influenza A Not Detected (NOT DETECT); Influenza A H1 Not Detected (NOT DETECT); Influenza A H1-2009 Not Detected (NOT DETECT); Influenza A H3 Not Detected (NOT DETECT); Influenza B Not Detected (NOT DETECT); Mycoplasma Pneumoniae Not Detected (NOT DETECT); Parainfluenza Virus Type 1 Not Detected (NOT DETECT); Parainfluenza Virus Type 2 Not Detected (NOT DETECT); Parainfluenza Virus Type 3 Not Detected (NOT DETECT); Parainfluenza Virus Type 4 Not Detected (NOT DETECT); Respiratory Syncytial Virus A Not Detected (NOT DETECT); Respiratory Syncytial Virus B Not Detected (NOT DETECT); SARS-COV-2 Not Detected (NOT DETECT)
[2022-11-11 15:05] LABS: Influenza A Not Detected (NOT DETECT); Influenza A H1 Not Detected (NOT DETECT); Influenza A H1-2009 Not Detected (NOT DETECT); Influenza A H3 Not Detected (NOT DETECT); Influenza B Not Detected (NOT DETECT); Results from Genmark
[2022-11-11] MEDS: albuterol 2.5 mg/3 mL Neb INHALATION ×2 (15:57→20:12)
[2022-11-11 16:03] LABS: Lactic Acid level (Lactate) 2.8 mmol/L (0.5-2.2)
--- NOTE | 2022-11-11 17:07 | ECG_ITS ---
[facility] Test Date: 2022-11-11 Pat Name: Jennifer Wilson Department: Room: [id number] Gender: Female Pot Fluxer: : 1960 Requested By: Jose Chacon Order Number: [id number] Ying MD: Charlotte Baron M.D. Measurements Intervals [place] Rate: 86 P: 56 [place]: 153 QRS: 75 QRSD: 81 T: 47 QT: 374 QTc: 448 Interpretive Statements SINUS RHYTHM LOW QRS VOLTAGE IN PRECORDIAL LEADS [QRS DEFLECTION < 1.0 mV IN CHEST LEADS] Compared to ECG 11/11/2022 13:07:28 Low QRS voltage now present Sinus arrhythmia no longer present Electronically Signed On 11-12-2022 8:28:21 STACKING MACHINE OPERATOR by Charlotte Baron M.D. [id number]
--- NOTE | 2022-11-11 18:10 | PC.NURSE ---
Patient resting in bed. No complaints of pain or distress so far thus shift.
[2022-11-11] MEDS: budesonide 0.5 mg/2 mL Neb INHALATION (20:12)
[2022-11-11] MEDS: piperacillin-tazobactam 3.375 GM in sodium chloride 0.9% (plus) 50 ML IV (20:13)
[2022-11-12] VITALS (19 sets, daily range): BP systolic 96–135; BP diastolic 56–76; PULSE 67–102; RESP 13–26; TEMP 36.4; O2SAT 85–99
[2022-11-12] MEDS: piperacillin-tazobactam 3.375 GM in sodium chloride 0.9% (plus) 50 ML IV (04:04)
[2022-11-12] MEDS: gabapentin 400 mg Capsule 800 MG PO ×2 (04:04→08:08)
[2022-11-12 05:09] LABS: Basophils % 0.3 %; Hematocrit 36.6 % (37.0-47.0); Hemoglobin 11.3 g/dL (11.5-15.3); Lymphocytes # 1.1 10^3/uL (0.8-4.8); Lymphocytes % 7.9 %; Mean Corpuscular HGB Conc 30.9 g/dL (30.0-36.0); Mean Corpuscular Hemoglobin 29.9 pg (28.0-34.0); Mean Corpuscular Volume 96.8 fl (81-99); Mean Platelet Volume 10.2 fL (7.4-10.4); Monocytes # 0.6 10^3/uL (0.2-0.9); Neutrophils # 12.35 10^3/uL (1.8-7.7); Neutrophils % 87.5 %; Nucleated Red Blood Cells % 0 %; Platelet Count 194 10^3/cmm (130-400); Red Blood Count 3.78 10^6/uL (4.1-5.3); Red Cell Distribution Width 13.8 % (12.1-15.1); White Blood Count 14.1 10^3/uL (4.0-10.0)
[2022-11-12 05:23] LABS: INR 1.02 (0.8-1.2)
[2022-11-12 05:42] LABS: NT Pro B Type Natriuretic Pept 840 pg/mL (0-125); Procalcitonin 3.38 ng/mL (0-0.5)
[2022-11-12 05:53] LABS: Alanine Aminotransferase 14 U/L (0-33); Albumin Level 3.7 g/dL (3.5-5.2); Alkaline Phosphatase 75 U/L (35-105); Aspartate Amino Transferase 15 U/L (0-32); Blood Urea Nitrogen 27 mg/dL (8-23); Calcium 9.3 mg/dL (8.5-10.5); Carbon Dioxide 24 mmol/L (22-29); Chloride 102 mmol/L (98-107); Creatinine Clr Calc Pharmacy 92.3726; Globulin 2.5 g/dL (1.3-4.6); Glomerular Filtration Rate 73.2 mL/min (90-130); Glucose 140 mg/dL (65-115); Magnesium 2.2 mg/dL (1.7-2.3); Osmolality Calculated 291 mOsm/kg (285-295); Phosphorus 1.9 mg/dL (2.5-4.5); Sodium 137 mmol/L (136-145); Total Bilirubin 0.3 mg/dL (0.15-1.2); Total Protein 6.2 g/dL (6.6-8.7)
[2022-11-12] MEDS: budesonide 0.5 mg/2 mL Neb INHALATION (08:01)
[2022-11-12] MEDS: albuterol 2.5 mg/3 mL Neb INHALATION (08:01)
[2022-11-12] MEDS: atorvastatin 40 mg Tablet 80 MG PO (08:07)
[2022-11-12] MEDS: pantoprazole DR 40 mg Tablet PO (08:08)
[2022-11-12] MEDS: vancomycin 1,000 MG in sodium chloride 0.9% 250 ML 250 MG IV (08:08)
[2022-11-12] MEDS: montelukast sodium 10 mg Tablet PO (08:10)
--- NOTE | 2022-11-12 10:45 | P.DS_ITS ---
Discharge Providers Date of Admission: 11/11/22 12:40 Date of Discharge: November 12, 2022 Attending Provider at Admission: Marc Fernandez MD Attending Provider at Discharge: Marc Fernandez MD Primary Care Provider: Randy Roy Jr, MD Diagnoses at Discharge Discharge Diagnosis (1) Altered mental status: Status: Inactive (2) Pneumonia: Status: Inactive (3) HTN (hypertension) with goal to be determined: Status: Inactive (4) COPD (chronic obstructive pulmonary disease): Status: Inactive (5) UTI (urinary tract infection): Status: Inactive Reason for Visit Reason for Visit: RESP DISTRESS; AMS Hospital Course Hospital Course Jennifer Wilson is a 61 year old female with past medical history of COPD hypertension, fibromyalgia, displacement of lumbar disc with radiculopathy was brought from home after family found her completely unconscious, as well as hypoxic, as well as with extremely variable heart rate, when EMS arrived at the scene, according to them the GCS was 7, Narcan was tried, and was brought in to the ER, when patient arrived in the ER she had improved, she was more coherent, when I examined the patient, family was at bedside, patient was alert awake oriented x3, she did not recall exactly what happened, family informed the above occurrence. she was admitted for the management of Acute Metabolic encephalopathy 2/ to Aspiration PNA/Pneumonitis,initially she was kept on broad spectrum abxs,blood cultures were negative, MRSA PCR was negative, urine legionella antigen, bacterial antigen panel was negative,she was afebrile,hemodynamics were normal,patient was alert,awake,oriented*3, she was holding good conversations,was cheerful,son was at bedside, ER physician at the time of admission was very concerned of her wellbeing, hence he decided to keep him in ICU,which was ok with me, though she was a good candidate for med-surge,floor or to the most step down unit, as expected patient wanted to go home next morning as she was felling extremely well.I discussed 2 options with her,either stay and make sure she is perfectly fine as the admission chest xray was very concerning,though her clinical improvement during hospital stay was extremely remarkable.Her 2 nd option was to go home on oral abxs, to complete the course, she decided to go home,on abxs,which was perfectly fine with me.Patient was discharged home,and was asked to follow with her pcp. Physical Exam Const: COMMON NORMALS: patient oriented x3 HENMT: COMMON NORMALS: normocephalic, atraumatic, hearing grossly normal bilaterally and external ears normal HEAD & SCALP: normocephalic and atraumatic EXTERNAL EAR: Yes external ears normal Eye: COMMON NORMALS: no scleral icterus GENERAL EYE: appearance normal, both eyes and all related structures Resp: COMMON NORMALS: clear to auscultation bilaterally AUSCULTATION: clear to auscultation bilaterally Cardio: COMMON NORMALS: regular rate, regular rhythm, S1 normal heart sound present, S2 normal heart sound present, No gallops present (Cardio), No murmurs present (Cardio), No rub (Cardio) and Peripheral pulses 2+ throughout RATE: regular rate RHYTHM: regular rhythm HEART SOUNDS: S1 normal heart sound present and S2 normal heart sound present PERIPHERAL PULSES: Peripheral pulses 2+ throughout GI: COMMON NORMALS: Normal to inspection, nondistended, normoactive bowel sounds present, Soft to palpation, non-tender, No hepatosplenomegaly present and no masses AUSCULTATION: Yes normoactive bowel sounds PALPATION: Yes Soft to palpation and Yes No hepatosplenomegaly present RECTAL EXAM: deferred Extremity: COMMON NORMALS: no clubbing, cyanosis or edema and no pedal edema Neuro: COMMON NORMALS: patient oriented x3 Discharge Data Studies Completed and Pending Completed Studies During Hospitalization Category Date Time Status CT head wo con* [id number] Stat Cat Scan 11/11/22 11:06 Completed XR chest 1V portable [id number] Stat Exams 11/11/22 11:59 Completed Pending at discharge Category Date Time Status Blood Culture Stat Lab 11/11/22 12:52 Results Complete Blood Count w/Auto AM LABS Lab 11/13/22 04:00 Ordered Complete Blood Count w/Auto AM LABS Lab 11/14/22 04:00 Ordered Comprehensive Metabolic Panel AM LABS Lab 11/13/22 04:00 Ordered Comprehensive Metabolic Panel AM LABS Lab 11/14/22 04:00 Ordered Sputum Culture and Gram Stain Stat Lab 11/11/22 14:22 Results Radiology Impressions Head CT 11/11/22 11:06 IMPRESSION: No acute intracranial abnormality. Chest X-Ray 11/11/22 11:59 IMPRESSION: 1. Multifocal areas of patchy density in the right lung are noted, most consistent with infectious infiltrates. 2. Degenerative changes of the spine. ADDENDUM: 11/11/22 [id number] THIS REPORT CONTAINS FINDINGS THAT MAY BE CRITICAL TO PATIENT CARE. The findings were verbally communicated via telephone conference with KIA Flynn at 12:25 PM VALIDATION SCIENTIST on 11/11/2022. The findings were acknowledged and understood. Laboratory Results WBC 14.1 10^3/uL (4.0-10.0) H 11/12/22 04:37 RBC 3.78 10^6/uL (4.1-5.3) L 11/12/22 04:37 Hgb 11.3 g/dL (11.5-15.3) L 11/12/22 04:37 Hct 36.6 % (37.0-47.0) L 11/12/22 04:37 MCV 96.8 fl (81-99) 11/12/22 04:37 MCH 29.9 pg (28.0-34.0) 11/12/22 04:37 MCHC 30.9 g/dL (30.0-36.0) 11/12/22 04:37 RDW 13.8 % (12.1-15.1) 11/12/22 04:37 Plt Count 194 10^3/cmm (130-400) 11/12/22 04:37 MPV 10.2 fL (7.4-10.4) 11/12/22 04:37 Neut % (Auto) 87.5 % 11/12/22 04:37 Lymph % (Auto) 7.9 % 11/12/22 04:37 [place] % (Auto) 4.0 % 11/12/22 04:37 Eos % (Auto) 0.0 % 11/12/22 04:37 Baso % (Auto) 0.3 % 11/12/22 04:37 Neut # (Auto) 12.35 10^3/uL (1.8-7.7) H 11/12/22 04:37 Lymph # (Auto) 1.1 10^3/uL (0.8-4.8) 11/12/22 04:37 [place] # (Auto) 0.6 10^3/uL (0.2-0.9) 11/12/22 04:37 Eos # (Auto) 0.0 10^3/uL (0.0-0.8) 11/12/22 04:37 Baso # (Auto) 0.0 10^3/uL (0.0-0.1) 11/12/22 04:37 Nucleated RBC % (auto) 0 % 11/12/22 04:37 Nucleated RBCs # 0.0 /100WBC 11/12/22 04:37 PT 13.70 SECONDS (12.1-14.9) 11/12/22 04:37 INR 1.02 (0.8-1.2) 11/12/22 04:37 APTT 27.0 SECONDS (23.9-36.7) 11/12/22 04:37 Specimen Type Arterial 11/11/22 11:00 Sample Site Radial, left 11/11/22 11:00 ABG pH 7.35 (7.35-7.45) 11/11/22 11:00 ABG pCO2 54.2 mmHg (35-45) H 11/11/22 11:00 ABG pO2 59.5 mmHg (80.0-100.0) L 11/11/22 11:00 ABG HCO3 30.2 mmol/L (22-26) H 11/11/22 11:00 ABG O2 Saturation 93.4 11/11/22 11:00 ABG Base Excess 3.3 mmol/L (-2.0-2.0) H 11/11/22 11:00 Ramo Test Pos 11/11/22 11:00 A-a O2 Gradient 3.4 mmHg (5-10) L 11/11/22 11:00 Hematocrit 42.8 % (37-47) 11/11/22 11:00 Hgb O2 Saturation 88.5 % (95-100) L 11/11/22 11:00 Carboxyhemoglobin 4.9 %THgb (0.4-20.1) 11/11/22 11:00 Methemoglobin 0.4 % (0.4-1.5) 11/11/22 11:00 Total Hemoglobin 14.0 g/dL (12-16) 11/11/22 11:00 Sodium 140.0 mmol/L (131-143) 11/11/22 11:00 Potassium 3.7 mmol/L (3.5-5.0) 11/11/22 11:00 Glucose 161.0 mg/dL (70-115) H 11/11/22 11:00 Ionized Calcium 1.2 mmol/L (1.1-1.4) 11/11/22 11:00 O2 Delivery Device Nc 11/11/22 11:00 O2 Liters/Min 2.0 % 11/11/22 11:00 Plastic Block Boiler Reliner ID Gray 11/11/22 11:00 Sodium 137 mmol/L (136-145) 11/12/22 04:37 Potassium 4.0 mmol/L (3.5-5.1) 11/12/22 04:37 Chloride 102 mmol/L (98-107) 11/12/22 04:37 Carbon Dioxide 24 mmol/L (22-29) 11/12/22 04:37 Anion Gap 15.0 (5-19) 11/12/22 04:37 BUN 27 mg/dL (8-23) H 11/12/22 04:37 Creatinine 0.8 mg/dL (0.5-0.9) 11/12/22 04:37 GFR Calculation 73.2 mL/min (90-130) L 11/12/22 04:37 Glucose 140 mg/dL (65-115) H 11/12/22 04:37 POC Glucose 252 mg/dL (70-110) H 11/11/22 10:59 Estimat Average Glucose 114 11/11/22 11:11 Hemoglobin A1c 5.6 % (4.0-6.0) 11/11/22 11:11 Calculated Osmolality 291 mOsm/kg (285-295) 11/12/22 04:37 Lactic Acid 3.2 mmol/L (0.5-2.2) H 11/11/22 12:52 Lactic Acid (Sepsis) 2.8 mmol/L (0.5-2.2) H 11/11/22 15:20 Calcium 9.3 mg/dL (8.5-10.5) 11/12/22 04:37 Phosphorus 1.9 mg/dL (2.5-4.5) L 11/12/22 04:37 Magnesium 2.2 mg/dL (1.7-2.3) 11/12/22 04:37 Total Bilirubin 0.3 mg/dL (0.15-1.2) 11/12/22 04:37 AST 15 U/L (0-32) 11/12/22 04:37 ALT 14 U/L (0-33) 11/12/22 04:37 Alkaline Phosphatase 75 U/L (35-105) 11/12/22 04:37 Troponin T Baseline 20 ng/L (0-10) H 11/11/22 11:33 Troponin T 120 Minute 27.69 ng/L (0-10) H 11/11/22 13:29 Delta Troponin T 7.69 ABS# (0-10) 11/11/22 13:29 Troponin T Hi Sens 6Hr 18.30 ng/L (0-10) H 11/11/22 18:00 Troponin T Hi Sens 6Hr Delta -1.70 ng/L (0-12) L 11/11/22 18:00 NT-Pro-B Natriuret Pep 840 pg/mL (0-125) H 11/12/22 04:37 Total Protein 6.2 g/dL (6.6-8.7) L 11/12/22 04:37 Albumin 3.7 g/dL (3.5-5.2) 11/12/22 04:37 Globulin 2.5 g/dL (1.3-4.6) 11/12/22 04:37 Procalcitonin 3.38 ng/mL (0-0.5) H 11/12/22 04:37 Urine Color Yellow (Yellow) 11/11/22 11:39 Urine Appearance Clear (CLEAR) 11/11/22 11:39 Urine pH 5 (5-7) 11/11/22 11:39 Ur Specific [place] 1.025 (1.005-1.030) 11/11/22 11:39 Urine Protein 1+ (Negative) H 11/11/22 11:39 Urine Glucose (UA) Norm (Normal) 11/11/22 11:39 Urine Ketones Negative (Negative) 11/11/22 11:39 Urine Blood 2+ (Negative) H 11/11/22 11:39 Urine Nitrate Negative (Negative) 11/11/22 11:39 Urine Bilirubin Neg (Negative) 11/11/22 11:39 Urine Urobilinogen Norm mg/dL (Negative) 11/11/22 11:39 Ur Leukocyte Esterase Trace (Negative) H 11/11/22 11:39 Urine RBC 0-4 /hpf (0-2) H 11/11/22 11:39 Urine WBC 5-10 /hpf (0-5) H 11/11/22 11:39 Ur Squamous Epith Cells 5-10 /hpf (0-5) H 11/11/22 11:39 Amorphous Sediment Not Reportable 11/11/22 11:39 Urine Bacteria 1+ /hpf (NONE) H 11/11/22 11:39 Hyaline Casts 25-40 /lpf H 11/11/22 11:39 Urine Mucus 2+ /hpf 11/11/22 11:39 Nasal Influ A H1 2009 PCR Not detected (NOT DETECT) 11/11/22 11:11 Urine Opiates Screen Negative ng/mL (Negative) 11/11/22 11:39 Ur Barbiturates Screen Negative ng/mL (Negative) 11/11/22 11:39 Ur Phencyclidine Scrn Negative ng/mL (Negative) 11/11/22 11:39 Ur Amphetamines Screen Negative ng/mL (Negative) 11/11/22 11:39 U Benzodiazepines Scrn Negative ng/mL (Negative) 11/11/22 11:39 Urine Cocaine Screen Negative ng/mL (Negative) 11/11/22 11:39 U Marijuana (THC) Screen Positive ng/mL (Negative) H 11/11/22 11:39 Coronavirus 229E (PCR) Not detected (NOT DETECT) 11/11/22 11:11 Influenza A (H1) PCR Not detected (NOT DETECT) 11/11/22 11:11 Influenza A (H3) PCR Not detected (NOT DETECT) 11/11/22 11:11 Influenza Type A (PCR) Not detected (NOT DETECT) 11/11/22 11:11 Influenza Type B (PCR) Not detected (NOT DETECT) 11/11/22 11:11 SARS-CoV-2 (PCR) Not detected (NOT DETECT) 11/11/22 11:11 Vitals Last Vital Signs Temp 97.6 F 11/12/22 00:00 Pulse 102 H 11/12/22 09:00 Resp 19 H 11/12/22 09:00 BP 105/76 11/12/22 09:00 Pulse Ox 92 11/12/22 09:00 O2 Del Method 11/12/22 08:00 O2 Flow Rate 2 11/11/22 22:32 Discharge Plan Discharge Patient Disposition: Home Condition: Stable Prescriptions: New Augmentin 500-125 mg tablet 1 tab PO BID Qty: 14 0RF doxycycline monohydrate 100 mg capsule 100 mg PO BID 7 Days Qty: 14 0RF Continued isosorbide mononitrate 30 mg tablet extended release 24 hr 30 mg PO BID Qty: 90 3RF fluticasone propion-salmeterol [Advair Diskus] 100-50 mcg/dose blister with device 1 puff INHALATION BID albuterol sulfate [Ventolin HFA] 90 mcg/actuation HFA aerosol inhaler 2 puff INHALATION Q6H PRN (Reason: Shortness Of Breath) omega-3 fatty acids 500 mg capsule 500 mg PO BID pantoprazole [Protonix] 40 mg tablet,delayed release (DR/EC) 40 mg PO DAILY cyclobenzaprine 10 mg tablet 10 mg PO TID duloxetine [Cymbalta] 60 mg capsule,delayed release(DR/EC) 90 mg PO DAILY Excedrin Extra Strength 250-250-65 mg tablet 1 tab PO Q6H PRN (Reason: Pain) naproxen sodium [Aleve] 220 mg tablet 220 mg PO BID PRN (Reason: Pain) montelukast [Singulair] 10 mg tablet 10 mg PO DAILY cetirizine [Zyrtec] 10 mg tablet 10 mg PO DAILY nitroglycerin [Nitrostat] 0.4 mg tablet, sublingual 0.4 mg sublingual Q5M PRN (Reason: chest pain) Qty: 25 3RF Rx Instructions: do not exceed 3 doses per episode meloxicam 15 mg tablet 15 mg PO DAILY Qty: 14 0RF metoprolol tartrate 25 mg tablet 37.5 mg PO BID Qty: 90 6RF rosuvastatin 20 mg tablet 20 mg PO DAILY Qty: 30 0RF Rx Instructions: MUST have follow-up with new provider for further refills alprazolam 0.5 mg tablet 0.5 mg PO BEDTIME PRN (Reason: Anxiety) gabapentin 800 mg tablet 800 mg PO TID Held hydrochlorothiazide 12.5 mg tablet 25 mg PO DAILY Hold Instructions: Resume on 11/14/22. Discharge Orders: Discharge Order (Routine); Ordered 11/12/22 Ordered By: Marc Fernandez Referrals: Randy Roy Jr, MD [Primary Care Provider] - 1 week Patient Instructions: Opioid Safety Stand Alone Forms: Work/School Release Discharge Attestations 2 Time Spent in Discharge Care*: greater than 30 min Quality Metrics Clinical Quality Measures [ No reported AMI, CVA or VTE this stay] Coding Level of Care Code Acute Chg [facility] note Diagnoses Altered mental status R41.82 Pneumonia J18.9 HTN (hypertension) with goal to be determined I10 COPD (chronic obstructive pulmonary disease) J44.9 UTI (urinary tract infection) N39.0
[2022-11-12] MEDS: amoxicillin-clav 500-125 mg Tablet 1 TAB PO (11:34)
[2022-11-12] MEDS: doxycycline 100 mg Tablet PO (11:34)
--- NOTE | 2022-11-12 11:35 | PC.NURSE ---
Patient stated she was going to go home, Dr. Fernandez notified. HCP put in d/c orders Patient educated to cotton picker ordered prescriptions KALIE and to take full coarse of abx and to f/u with primary care provider withing 1 week. patient out of facility at this time transported home by family
== END 2022-11-12 11:37 | disposition home or self-care (01) ==
LOC: ER 13:05 → ICU 13:52
PROVIDERS: Admitting Provider Internal Medicine; Emergency Provider Family Medicine; PCP Family Medicine; Visit Provider Internal Medicine
DX: N39.0 Urinary tract infection, site not specified (principal); R41.82 Altered mental status, unspecified; J18.9 Pneumonia, unspecified organism; I10 Essential (primary) hypertension; J44.9 Chronic obstructive pulmonary disease, unspecified; M79.7 Fibromyalgia; Z79.82 Long term (current) use of aspirin; F41.9 Anxiety disorder, unspecified; E78.00 Pure hypercholesterolemia, unspecified
CPT/HCPCS: 36415; 36416; 36600; 70450; 71045; 80051; 80053; 80306; 81001; 82330; 82805; 82962; 83036; 83605; 83735; 83880; 84100; 84145; 84484; 85025; 85610; 85730; 86403; 87040; 87070; 87205; 87449; 87631; 87635; 87641; 93005; 94640; 94660; 96365; 96366; 96367; 96372; 99285; G0378; J1650; J1956; J2543; J3370; J7030; J7050; J7613; J7626

== ENCOUNTER 2023-01-15 10:39 | Emergency (ER) | payer BC, SELFPAY ==
[2023-01-15 10:48] VITALS: BP 145/77; PULSE 93; RESP 14; TEMP 37.2; O2SAT 94; BMI 34.4
--- NOTE | 2023-01-15 11:05 | ED_ITS ---
HPI - Extremity Injury (Lower) General: Chief Complaint: Extremity Injury, Lower Stated Complaint: left knee pain Time Seen by Provider: 01/15/23 10:54 Source: patient Mode of arrival: ambulatory Limitations: no limitations History of Present Illness: Patient is a nice 62-year-old female presents to ED today for evaluation of a left knee injury that she sustained 2 days ago after tripping and falling directly onto the knee. Patient states she has continued to walk on the knee and work since injury but continues to notice pain and swelling anteriorly. Patient denies any other injuries sustained during her fall. MD complaint: knee injury and fall Onset (ago): day(s) Injury: Left: knee Type of Injury: blunt Place: home Severity: moderate Relieving factors: immobilization Exacerbating factors: weight bearing, movement and palpation Context: fall Associated symptoms: Reports no associated symptoms Other symptoms: none Review of Systems Musc: Reports: joint pain (L knee) and joint swelling (L knee); Denies: neck pain, back pain, extremity pain, extremity swelling or joint redness Neuro: Denies: numbness in extremities or sensory changes [facility] ED PFSH: Medical History Acute exacerbation of chronic obstructive airways disease Altered mental status Anxiety disorder Aspiration pneumonia COPD (chronic obstructive pulmonary disease) COPD (chronic obstructive pulmonary disease) Depression Displacement of lumbar disc with radiculopathy Fibromyalgia HTN (hypertension) with goal to be determined Hypercholesterolemia Pneumonia UTI (urinary tract infection) Surgical History H/O section H/O: hysterectomy History of carpal tunnel surgery Family History Grandfather CAD (coronary artery disease) Grandmother CAD (coronary artery disease) Diabetes Hypertension Brother Diabetes Father Hypertension Mother Hypertension Social History Alcohol intake: never Lives independently: Yes Household members: spouse Marital status: Current occupational status: employed Physical Exam Const: COMMON NORMALS: no acute distress, patient oriented x3, no limitations, alert and well nourished Extremity: GENERAL: Yes normal exam except as noted LEFT LOWER EXTREMITY: Yes knee joint (TTP and swelling noted to anterior knee; no obvious laxity ) Left knee: Yes ROM (fairly good ROM-slightly limited secondary to swelling) and Yes neurovascular exam (normal) Neuro: COMMON NORMALS: patient oriented x3, moves all extremities, no focal motor deficits and no sensory deficits noted SENSORIUM/ORIENTATION: Yes alert Skin: TRAUMA: no lacerations or abrasions Course Vital Signs: Vital signs: Vital Signs Temperature 98.9 F 01/15/23 10:48 Pulse Rate 93 01/15/23 10:48 Respiratory Rate 14 01/15/23 10:48 Blood Pressure 145/77 01/15/23 10:48 Pulse Oximetry 94 01/15/23 10:48 Oxygen Delivery Me thod 01/15/23 10:48 MDM - Extremity Injury (Lower) Medical Decision Making XR negative for acute injury. She does have severe osteoarthritis of the knee. Will ABIEL wrap, have her ice and elevate the extremity, and plan for weight bearing as tolerated. Given follow-up with primary care in a week or so if pain does not improve. Lab Data Radiology Impressions Knee X-Ray 01/15/23 11:23 Impression: Severe osteoarthritis of the left knee Kellgren-Yonny Classification: grade 4 (severe): large osteophytes, marked narrowing of joint space, severe sclerosis and definite deformity of bone ends Discharge Plan Discharge Patient Disposition: Home Clinical Impression: Contusion of left knee Qualifiers: Encounter type: initial encounter Qualified Code(s): S80.02XA - Contusion of left knee, initial encounter Osteoarthritis of left knee Qualifiers: Osteoarthritis type: unspecified Qualified Code(s): M17.12 - Unilateral primary osteoarthritis, left knee Condition: Stable Prescriptions: No Action isosorbide mononitrate 30 mg tablet extended release 24 hr 30 mg PO BID Qty: 90 3RF fluticasone propion-salmeterol [Advair Diskus] 100-50 mcg/dose blister with device 1 puff INHALATION BID albuterol sulfate [Ventolin HFA] 90 mcg/actuation HFA aerosol inhaler 2 puff INHALATION Q6H PRN (Reason: Shortness Of Breath) omega-3 fatty acids 500 mg capsule 500 mg PO BID pantoprazole [Protonix] 40 mg tablet,delayed release (DR/EC) 40 mg PO DAILY cyclobenzaprine 10 mg tablet 10 mg PO TID duloxetine [Cymbalta] 60 mg capsule,delayed release(DR/EC) 90 mg PO DAILY hydrochlorothiazide 12.5 mg tablet 25 mg PO DAILY Hold Instructions: Resume on 11/14/22. Excedrin Extra Strength 250-250-65 mg tablet 1 tab PO Q6H PRN (Reason: Pain) naproxen sodium [Aleve] 220 mg tablet 220 mg PO BID PRN (Reason: Pain) montelukast [Singulair] 10 mg tablet 10 mg PO DAILY cetirizine [Zyrtec] 10 mg tablet 10 mg PO DAILY nitroglycerin [Nitrostat] 0.4 mg tablet, sublingual 0.4 mg sublingual Q5M PRN (Reason: chest pain) Qty: 25 3RF Rx Instructions: do not exceed 3 doses per episode meloxicam 15 mg tablet 15 mg PO DAILY Qty: 14 0RF metoprolol tartrate 25 mg tablet 37.5 mg PO BID Qty: 90 6RF rosuvastatin 20 mg tablet 20 mg PO DAILY Qty: 30 0RF Rx Instructions: MUST have follow-up with new provider for further refills alprazolam 0.5 mg tablet 0.5 mg PO BEDTIME PRN (Reason: Anxiety) gabapentin 800 mg tablet 800 mg PO TID Augmentin 500-125 mg tablet 1 tab PO BID Qty: 14 0RF Discharge Orders: Discharge ED (Routine); Ordered 01/15/23 Ordered By: Brandy Morales Referrals: Ela Meadows FNP [Primary Care Provider] - Stand Alone Forms: Work/School Release Coding Level of Care Code ED Hospice Superintendent for Riri Barnes
--- NOTE | 2023-01-15 11:23 | XR_ITS ---
WS: [id number] Left knee, 3 views, 01/15/2023 Clinical Data: pain/injury/swelling Comparison: None. Findings: No fractures or dislocations are seen. There is medial joint compartment narrowing with osteophytes o f the medial and lateral tibial plateau. There is sclerosis and irregularity of the articular surface s of both the medial and lateral tibial plateau. There is osteophytic spurring of the left patella. T he soft tissues are unremarkable. XR/XR knee LT 3V* [id number] Impression: Severe osteoarthritis of the left knee Kellgren-Yonny Classification: grade 4 (severe): large osteophytes, marked n arrowing of joint space, severe sclerosis and definite deformity of bone ends
== END 2023-01-15 12:28 | disposition home or self-care (01) ==
PROVIDERS: Emergency Provider Physician Assistant; PCP Nurse Practitioner Family
DX: S80.02XA Contusion of left knee, initial encounter (principal); M17.12 Unilateral primary osteoarthritis, left knee; J44.9 Chronic obstructive pulmonary disease, unspecified; I10 Essential (primary) hypertension; W01.0XXA Fall on same level from slipping, tripping and stumbling without subsequent striking against object, initial encounter
CPT/HCPCS: 73562; 99283

== ENCOUNTER → 2023-02-28 08:10 | Outpatient (BNVA) | payer BC, SELFPAY | PROVIDERS: PCP Nurse Practitioner Family; Referring Provider Family Medicine; Visit Provider Specialist | DX: M17.12 Unilateral primary osteoarthritis, left knee (principal) | CPT/HCPCS: 73560; 73565 ==

== ENCOUNTER → 2023-03-28 07:59 | Outpatient (BNVA) | payer BC, SELFPAY | PROVIDERS: PCP Nurse Practitioner Family; Visit Provider Specialist | DX: Z01.818 Encounter for other preprocedural examination (principal) | CPT/HCPCS: 36415; 80053; 85025 ==

== ENCOUNTER 2023-04-13 15:22 | Outpatient (CLI) | payer BC, SELFPAY ==
--- NOTE | 2023-04-13 14:00 | CT_ITS ---
WS: [id number] CT LEFT KNEE, NONCONTRAST TECHNIQUE: Noncontrast CT of the LEFT knee to include the LEFT hip and ankle. CYNDY CLINICAL INFORMATION: LEFT TOATL KNEE ARTHROPLASTY COMPARISON: None. DLP: 942.[address] scans at [facility] use at least one of these dose optimization techniques: automated e xposure control; mA and/or kV adjustment per patient size (includes targeted exams where dose is matc hed to clinical indication); or iterative reconstruction. FINDINGS: Mild degenerative arthritis both hips. Sigmoid diverticulosis. Advanced osteoarthritis LEFT knee wors e medial joint compartment. Hypertrophic changes along the joint line. Moderate suprapatellar effusio n. Soft tissue edema about the knee. CT/CT knee LT [facility] IMPRESSION: Images obtained for preoperative purposes.
== END 2023-04-13 15:23 | disposition home or self-care (01) ==
LOC: RAD 15:25
PROVIDERS: PCP Family Medicine; Visit Provider Specialist
DX: M17.12 Unilateral primary osteoarthritis, left knee (principal); R60.0 Localized edema; M25.462 Effusion, left knee; M16.0 Bilateral primary osteoarthritis of hip
CPT/HCPCS: 36415; 73700; 80053; 85025

== ENCOUNTER → 2023-04-25 14:15 | Outpatient (BNVA) | payer BC, SELFPAY | PROVIDERS: PCP Family Medicine; Visit Provider Clinical Nurse Specialist Adult Health | DX: Z01.818 Encounter for other preprocedural examination (principal); I10 Essential (primary) hypertension; E87.6 Hypokalemia; R82.90 Unspecified abnormal findings in urine | CPT/HCPCS: 81000 ==

== ENCOUNTER 2023-04-27 16:38 | Outpatient (CLI) | payer BC, SELFPAY ==
--- NOTE | 2023-04-27 17:15 | USR_ITS ---
PROCEDURE INFORMATION: Exam: US Duplex Bilateral Extracranial Arteries; Complete; Carotid Arteries Exam date and time: 04/27/2023 5:09 PM Age: 62 years old Clinical indication: Other: Bruit. Preop for hip surgery; Additional info: New bruit, this is a preop carotid, please expedite it and have it done TECHNIQUE: Imaging protocol: Real-time duplex ultrasound scan of the bilateral extracranial arteries combining vences scale, color Doppler and spectral waveform analysis with image documentation. Complete exam. Exam focused on the carotid arteries. COMPARISON: CT head wo con* [id number] 11/11/2022 12:05 PM FINDINGS: Right common carotid artery: Unremarkable. No occlusion or stenosis. Waveforms are normal. Right internal carotid artery: Moderate plaque formation.. No occlusion or stenosis by the provided velocity measurements. Waveforms demonstrate spectral broadening. Right ICA/CCA ratio: Within normal limits. 1.18 Right external carotid artery: No stenosis in the origin. Right vertebral artery: Unremarkable. Antegrade flow. Left common carotid artery: Mild calcified plaque in the carotid bulb. No occlusion or stenosis. Waveforms are normal. Left internal carotid artery: Unremarkable. No occlusion or stenosis. Waveforms are normal. Left ICA/CCA ratio: Within normal limits. 0.74 Left external carotid artery: No stenosis in the origin. Left vertebral artery: Unremarkable. Antegrade flow. US/CV carotid duplex BI* [id number] IMPRESSION: Findings of mild stenosis in the proximal right internal carotid artery but no evidence for hemodynamically significant stenosis of greater than 50%. REFERENCES: SRU CRITERIA. The degree of internal carotid artery stenosis is based on criteria defined by the Society of Radiologists in Ultrasound (SRU). Normal is no stenosis. Mild is less than 50% stenosis. Moderate is 50-69% stenosis. Severe is greater than 69% stenosis to near occlusion. Near occlusion is a markedly narrowed lumen. Total occlusion is no detectable patent lumen.
== END 2023-04-27 16:39 | disposition home or self-care (01) ==
PROVIDERS: PCP Family Medicine; Visit Provider Clinical Nurse Specialist Adult Health
DX: R82.90 Unspecified abnormal findings in urine (principal); R09.89 Other specified symptoms and signs involving the circulatory and respiratory systems; Z01.818 Encounter for other preprocedural examination
CPT/HCPCS: 87086; 93880

== ENCOUNTER 2023-05-01 18:46 | Observation (INO) | payer BC, SELFPAY ==
--- NOTE | 2023-04-24 14:10 | ANES.PREANE2 ---
Pre-Anesthetic Assessment Height/Weight: Height 1.47 m Operation Date: 05/01/23 10:55 Proposed Procedures p LEFT TOTAL KNEE ARTHROPLASTY 85895, M17.10(Left) - Shruthi León MD Familial anesthetic complications: None Social Tobacco and No alcohol Exam alert, oriented x 3, clear to auscultation bilaterally and regular rate & rhythm Airway Mallampati: Class II Dentition: other (noteeth) Pulmonary Chronic Obstructive Pulmonary Disease CV/HEM Hypertension mod pulm thn GI Gastroesophageal Reflux Disease Anesthetic Plan ASA status: 3 Anesthesia: General and Regional (specify below) Risk of > 500 ml blood loss (7ml/kg in children): Yes, adequate IV access and fluids planned Medications/Allergies Home Medications Medication Instructions Recorded Confirmed Last Taken Type albuterol sulfate 90 mcg/actuation 2 puff inhalation Q6H PRN 02/17/20 04/24/23 Unknown History aerosol inhaler (Ventolin HFA) Shortness Of Breath cyclobenzaprine 10 mg tablet 10 mg PO TID 02/17/20 04/24/23 11/10/22 History fluticasone 100 mcg-salmeterol 50 1 puff inhalation BID 02/17/20 04/24/23 11/10/22 History mcg/dose blistr powdr for inhalation (Advair Diskus) omega-3 fatty acids 500 mg capsule 500 mg PO BID 02/17/20 04/24/23 11/10/22 History pantoprazole 40 mg tablet,delayed 40 mg PO DAILY 02/17/20 04/24/23 11/10/22 History release (Protonix) cetirizine 10 mg tablet (Zyrtec) 10 mg PO DAILY 05/11/21 04/24/23 11/10/22 History duloxetine 60 mg capsule,delayed 90 mg PO DAILY 05/11/21 04/24/23 11/10/22 History release (Cymbalta) montelukast 10 mg tablet 10 mg PO DAILY 05/11/21 04/24/23 11/10/22 History (Singulair) nitroglycerin 0.4 mg sublingual 0.4 mg sublingual Q5M PRN chest 05/11/21 04/24/23 Unknown Rx tablet (Nitrostat) pain #25 tabs hydrochlorothiazide 12.5 mg tablet 25 mg PO DAILY 11/25/21 04/24/23 Unknown History isosorbide mononitrate 30 mg 30 mg PO BID #90 tabs 11/25/21 04/24/23 11/10/22 Rx tablet,extended release 24 hr metoprolol tartrate 25 mg tablet 37.5 mg PO BID #90 tabs 11/30/21 04/24/23 11/10/22 Rx rosuvastatin 20 mg tablet 20 mg PO DAILY #30 tabs 08/29/22 04/24/23 11/10/22 Rx alprazolam 0.5 mg tablet 0.5 mg PO BEDTIME PRN Anxiety 11/11/22 04/24/23 11/10/22 History gabapentin 800 mg tablet 800 mg PO TID 11/11/22 04/24/23 Unknown History potassium chloride 10 mEq 10 meq PO BID #2 caps 04/24/23 04/24/23 Unknown Rx capsule,extended release sulfamethoxazole 800 1 tab PO Q12H 3 days #6 tabs 04/24/23 04/24/23 Unknown Rx mg-trimethoprim 160 mg tablet (Bactrim DS) Allergies Allergy/AdvReac Type Severity Reaction Status Date / Time morphine Allergy Mild Rash/itchin Verified 04/24/23 10:46 g oxycodone [From Percocet] Allergy Mild Hives Verified 04/24/23 10:46 PFSH Anesthesia Medical History (Updated 04/24/23 @ 11:20 by Bruno Henderson NP) Acute exacerbation of chronic obstructive airways disease Altered mental status Anxiety disorder Aspiration pneumonia COPD (chronic obstructive pulmonary disease) COPD (chronic obstructive pulmonary disease) Depression Displacement of lumbar disc with radiculopathy Fibromyalgia HTN (hypertension) with goal to be determined Hypercholesterolemia Moderate pulmonary hypertension Pneumonia Tobacco use UTI (urinary tract infection) Surgical History H/O section H/O: hysterectomy History of carpal tunnel surgery Family History Grandfather CAD (coronary artery disease) Grandmother CAD (coronary artery disease) Diabetes Hypertension Brother Diabetes Father Hypertension Mother Hypertension Social History Alcohol intake: never Substance/Drug Use: never Lives independently: Yes Household members: spouse Marital status: Current occupational status: employed Data Anesthesia Cardiac Studies: Echocardiogram Ultrasound 06/29/21
[2023-04-24 14:15] VITALS: BMI 33.7
[2023-05-01] VITALS (12 sets, daily range): BP systolic 114–168; BP diastolic 59–127; PULSE 69–84; RESP 16–18; TEMP 36.1–36.8; O2SAT 94–99
[2023-05-01 12:29] LABS: Add Urine Microscopic? NO; Charge for UA Resulting for Rev
[2023-05-01] MEDS: CELEcoxib 200 mg Capsule 400 MG PO (12:36)
[2023-05-01] MEDS: gabapentin 300 mg Capsule PO (12:36)
[2023-05-01 12:40] LABS: Specific Gravity, Urine 1.015 (1.005-1.030); Urine Appearance Clear (CLEAR); Urine Color Yellow (Yellow); pH Urine 6 (5-7)
[2023-05-01 12:41] LABS: Bilirubin Urine Neg (Negative); Blood Urine Neg (Negative); Glucose Urine UA Norm (Normal); Ketones Urine Negative (Negative); Leukocyte Esterase Urine Negative (Negative); Nitrate Urine Negative (Negative); Protein Urine Neg (Negative); Urobilinogen Urine Norm (Negative)
[2023-05-01] MEDS: sodium chloride 0.9% 1,000 ML 30 ML IV (12:41)
[2023-05-01] MEDS: acetaminophen 1,000 MG/100 ML PIGGYBACK 400 MG IV ×2 (12:42→20:48)
[2023-05-01] MEDS: HYDROmorphone 1 mg/mL INJ 1 mL 0.5 MG IVP (13:19)
--- NOTE | 2023-05-01 14:14 | P.HPUD_ITS ---
Surgery/Procedure H&P Update DATE OF PROCEDURE: May 01, 2023 DATE H&P PERFORMED: 04/24/23 H&P UPDATE INFORMATION: I have reviewed H&P completed within last 30 days, I have examined patient prior to procedure, No changes to prior documentation and H&P is in [facility] EMR on date indicated PREOP DIAGNOSIS: Severe degenerative osteoarthritis left knee PLANNED PROCEDURE: Operation Date: 05/01/23 13:40 Proposed Procedures p LEFT TOTAL KNEE ARTHROPLASTY 05745, M17.10(Left) - Shruthi León MD Related Problem List Diagnoses (1) Osteoarthritis of left knee: Qualifiers: Osteoarthritis type: unspecified Qualified Code(s): M17.12 - Unilateral primary osteoarthritis, left knee
[2023-05-01] MEDS: ceFAZolin 2,000 MG in sodium chloride 0.9% (plus) 50 ML 100 MG IV ×2 (15:33→23:11)
[2023-05-01] MEDS: ceFAZolin 1,000 mg SDV 1000 MG IRRIGATION ×3 (16:24→16:26)
--- NOTE | 2023-05-01 17:38 | P.ANESUD_ITS ---
Pre-Anesthetic Update Pre-Anesthetic Assessment: Date of Surgery/Procedure: 05/01/23 Preop Lizeth gnosis: Severe degenerative osteoarthritis left knee Proposed Procedure: Operation Date: 05/01/23 13:40 Proposed Procedures p LEFT TOTAL KNEE ARTHROPLASTY 14728, M17.10(Left) - Shruthi León MD Any changes to Pre-Anesthetic Assessment?: No Last Intake: Intake Last Liquid Date 05/01/23 Last Liquid Time 00:00 Last Solid Date 05/01/23 Last Solid Time 00:00 Labs Last 48hrs: Urine 05/01/23 Range/Units 12:24 Urine Color Yellow (Yellow) Urine Appearance Clear (CLEAR) Urine pH 6 (5-7) Ur Specific Gravit y 1.015 (1.005-1.030) Urine Protein Neg (Negative) Urine Glucose (UA) Norm (Normal) Urine Ketones Negative (Negative) Urine Nitrate Negative (Negative) Urine Bilirubin Neg (Negative) Ur Leukocyte Ashley ase Negative (Negative) Vitals: Temperature 97.4 F L 05/01/23 12:19 Temperature Source Temporal Artery S can 05/01/23 12:19 Pulse Rate 69 05/01/23 12:19 Respiratory Rate 16 05/01/23 13:19 Respiratory Effort Spontaneous, Non- Labored 05/01/23 13:19 Respiratory Depth Normal 05/01/23 13:19 Respiratory Patter n Normal 05/01/23 13:19 Blood Pressure 124/75 05/01/23 12:19 Blood Pressure Ilsa n 91 05/01/23 12:19 Pulse Oximetry 98 05/01/23 12:19 Oxygen Delivery Me thod Room Air 05/01/23 12:19 Exam: Pre-Anes Outpt Exam: alert, oriented x 3 and regular rate & rhythm Cardiac Studies: Echocardiogram Ultrasound 06/29/21 Anesthesia Procedures Nerve Block: Nerve Block 1: Main Anesthesia: spinal anesthesia block Time Out Performed: Yes Consent: requested by attending/covering physician, from patient, risks and benefits reviewed and patient agrees to proceed Nerve block location: adductor canal (left) Anesthesia monitors applied: pulse oximetry, EKG, BP cuff and oxygen Nerve block position: supine Anesthetic Used: ropivicaine 0.5% Amount of anesthesia used (mL): 20 Ultrasound used to: recognize landmarks Nerve Stimulator Used?: No Interscalene/Femoral BLK: 4 stimuplex 21 g needle used for position and inplane approach Injection: neg aspiration of heme Patient Tolerated Procedure: well Complications: none
--- NOTE | 2023-05-01 19:13 | XRR_ITS ---
PROCEDURE INFORMATION: Exam: XR Left Knee Exam date and time: 05/01/2023 6:15 PM Age: 62 years old Clinical indication: Device placement; Joint replacement hardware; Prior surgery; Surgery date: Post-operative (0-2 days); Additional info: Status post left total knee arthroplasty TECHNIQUE: Imaging protocol: Radiologic exam of the left knee. Views: 1 or 2 views. COMPARISON: US soft tissue/extremity [id number] 11/08/2016 11:23 AM FINDINGS: Bones/joints: Knee arthroplasty changes in place with postsurgical soft tissue changes. Soft tissues: See Bones/joints finding. XR/XR knee LT 1-2V [id number] IMPRESSION: Knee arthroplasty changes in place with postsurgical soft tissue changes.
--- NOTE | 2023-05-01 19:36 | PM.OP ---
Operative Report Date of procedure: May 01, 2023 Pre-op diagnosis: Severe degenerative osteoarthritis left knee Post-op diagnosis: Severe degenerative osteoarthritis left knee Post-op findings: Severe degenerative osteoarthritis with large osteophytes and complete loss of cartilage. Procedure done: Left total knee arthroplasty with Alex guidance Implants: The [place] total knee system with a size 1 triathlon beaded cruciate retaining femur left, a triathlon titanium tibial component size 1 beaded, a triathlon X3 tibial bearing CS insert size 1 X 10 mm and a beaded triathlon titanium asymmetric patella size 29 x 9 mm Specimens removed/disposition: Bone, disposed of Pathology: none sent Surgeon: Shruthi León Sql Programmer Analyst: [facility] operating room technicians Anesthesia: MAC (With spinal and supplemental block, ASA 3) Estimated blood loss (mL): 300 Tourniquet time (min): 0 (Not utilized) IV fluids (mL): 1,200 Urine output (mL): 300 Complications: None Findings: Severe degenerative osteoarthritis with large osteophytes and varus deformity. Condition: stable Disposition: PACU (Then to floor for postoperative rehabilitation and pain management.) Brief History: This 62-year-old woman presented to my office with complaints of left knee pain. She had cortisone injection which resulted in relief for 1 day, and she stated after the lidocaine wore off she is experiencing pain the following morning. She had physical therapy which merely aggravated the pain. She took anti-inflammatories without relief. She still had difficulties with activities of daily living and pain scale at 5 of 10. 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 She is unable to sleep through the night. Secondary to all these complaints and findings, the patient wished to proceed with total knee arthroplasty. Risks and complications were discussed with her, and consents were signed. All questions were answered. Procedure: The patient was brought to the operating theater, and after undergoing spinal anesthesia with supplemental MAC, as well as an adductor canal block, ASA 3, the left lower extremity was prepped with Dura-Prep and draped in usual fashion following placement of a tourniquet high on the leg. The leg was then draped free.? Tourniquet was not elevated during the case.? A surgical pause was performed, and at the time of the surgical pause, we confirmed the site and side of surgery. Additionally, we confirmed the appropriate and timely administration of preoperative antibiotics, Ancef 2 g and Transexemic acid 1 g.? The availability of equipment was confirmed, and the patient's identity was verbalized as well.? An additional transexemic acid 1 g will be given on the floor as well. Following the surgical pause, an incision was made centering over the patella continuing proximally and distally as necessary to allow access to the knee joint. Dissection continued through skin and soft tissues using a scalpel. Hemostasis was obtained using electrocautery. The skin incision was followed by a median parapatellar arthrotomy. The leg was extended and the patella was able to be displaced laterally.? Appropriate arrays and markers were placed in appropriate position for use of the Alex.? Preoperative planning had been accomplished and was discussed in detail with the [facility] inside outside sales representative.? Intraoperative mapping of the femur and tibia was accomplished after the arrays were placed.? Internal markers were also placed.? Once we had accomplished the Alex mapping, we began the appropriate resections for placement of the prosthesis.? The plan was for a cruciate retaining right total knee arthroplasty. Once appropriate mapping had been accomplished, retraction was established using manual retraction by surgical technicians and also the Alex leg positioner and retractors.? The knee was evaluated.? There was significant osteoarthritic change with significant osteophyte formation a significant varus deformity.? Appropriate bone resection was accomplished using the Alex.? The femur was sized to a size 1.? Following femoral cuts, attention was directed to the tibia.? Osteophytes were removed prior to this portion of the procedure.? We had performed a medial release at the beginning of the procedure to allow for placement of the array and to allow for better planning with flexion and extension adjustments per Alex programming.? Proximal tibia was evaluated, and it was felt that appropriate size for the tibia was a size 1.? Tray was noted to fit nicely with good coverage.? Rim fit was accomplished with the size 1. A trial reduction was accomplished after osteophytes have been removed as well as the medial and lateral menisci.? We had removed the anterior cruciate ligament at the beginning of the case and preserved the posterior cruciate ligament.? Trial reduction was accomplished with a size 1 femoral cruciate retaining component and a size 1 CS tibial bearing insert which was 1 mm in thickness initially.? Final insert was an 10 mm implant.? Alignment was felt to be appropriate as well.? Trial components were removed after the femur had been drilled.? Prior to removal of the tibial tray which had been pinned in position with appropriate rotation as determined by the Alex plan, we broached the tibia.? Subsequently, the 4 drill holes were made for the prosthetic component.? All trial components were removed, and the wound was irrigated.? Plans were made for insertion of the prosthetic components.? Prior to this, the patella was manually prepared.? After resection of the articular surface with the jogging system, it was measured and measured a 29 mm patella.? We resected approximately 9 mm of patella.? Patellar height was restored with the patellar component. Once again, the wound was irrigated.? The Tritanium tibia was impacted into position.? The beaded femur was then impacted into position in a cementless fashion. The CS tibial insert was placed prior to placement of the femoral component. The patella was pressed into position with a patellar clamp.? Exparel was injected about the components deep and superficially.? The knee was then copiously irrigated with betadine and saline and suctioned dry. Attention was then directed to closure. Closure was accomplished with 0 Vicryl in the fascial tissues.? This was followed by Surgiflo and vancomycin powder.? Following this, a 2-0 Monocryl was used in the subcutaneous tissues, and the skin was closed with skin balaji.? Care was taken to assure an excellent subcutaneous as well as skin closure.? A sterile dressing was then placed consisting of Dermabond Prineo, OpSite, sterile soft roll including over the foot, and an Vasyl wrap. The patient was returned the Recovery Room in a satisfactory condition. X-rays were obtained and reviewed there.? The patient will be discharged to the floor for postoperative rehabilitation and pain management. Related Problem List Diagnoses (1) Osteoarthritis of left knee:
--- NOTE | 2023-05-01 20:12 | PC.NURSE ---
TRANSFER FROM OR Pt was received to room from OR at 1945. Is alert and oriented. Dressing/marvel wrap to left leg C&D. Ice pack in place. Neurovascular check of LLE WNL. Is able to move left leg and lift it sl off bed. FOB locked and instructed to put nothing under the knee. Says pain is not too bad right now. Grijalva in place. Given ice chips and water. Enc to start slowly with liquids. Family at bedside
[2023-05-01] MEDS: gabapentin 400 mg Capsule 800 MG PO (20:48)
[2023-05-01] MEDS: cyclobenzaprine 10 mg Tablet PO (20:49)
[2023-05-01] MEDS: oxyCODONE 5 mg IR Tab/Cap PO (20:49)
[2023-05-01] MEDS: CELEcoxib 200 mg Capsule PO (20:49)
--- NOTE | 2023-05-01 21:14 | ANE.PACU2 ---
Inpatient post-anesthesia follow up: Airway intact: Yes Vital signs: Temperature 97.4 F Pulse Rate 76 Respiratory Rate 16 Blood Pressure 116/72 Pulse Oximetry 97 Oxygen Delivery Me thod Room Air Oxygen Flow Rate 6 Fraction of Inspir ed Oxygen Hydration adequate: Yes Nausea and vomiting: No Pain level: 2 Mental status: Baseline
[2023-05-01] MEDS: chlorhexidine gluconate 0.12% UDC 15 mL 30 ML MUCOUS MEM (21:29)
--- NOTE | 2023-05-02 00:38 | PC.NURSE ---
PAIN Pt c/o pain in knee but declines further po Oxyir. Stated it really won't help so no need to take it . Have offered to call Dr for something different because she says Hydrocodone usually works better but she does not want me to call Dr. Ice packs in place.
[2023-05-02 03:33] VITALS: BP 148/81; PULSE 79; RESP 17; TEMP 36.8; O2SAT 95
[2023-05-02 04:56] LABS: Basophils % 0.2 %; Hematocrit 33.2 % (37.0-47.0); Hemoglobin 9.9 g/dL (11.5-15.3); Lymphocytes # 1.4 10^3/uL (0.8-4.8); Lymphocytes % 11.5 %; Mean Corpuscular HGB Conc 29.8 g/dL (30.0-36.0); Mean Corpuscular Hemoglobin 28.6 pg (28.0-34.0); Mean Platelet Volume 10.2 fL (7.4-10.4); Monocytes # 0.6 10^3/uL (0.2-0.9); Monocytes % 4.5 %; Neutrophils # 10.46 10^3/uL (1.8-7.7); Neutrophils % 83.5 %; Nucleated Red Blood Cells % 0 %; Platelet Count 204 10^3/cmm (130-400); Red Blood Count 3.46 10^6/uL (4.1-5.3); Red Cell Distribution Width 13.5 % (12.1-15.1); White Blood Count 12.5 10^3/uL (4.0-10.0)
[2023-05-02 06:45] VITALS: BP 107/62; PULSE 79; RESP 16; O2SAT 98
[2023-05-02 07:09] LABS: Blood Urea Nitrogen 15 mg/dL (8-23); Calcium 8.9 mg/dL (8.5-10.5); Carbon Dioxide 24 mmol/L (22-29); Chloride 106 mmol/L (98-107); Glomerular Filtration Rate 101.6 mL/min (90-130); Glucose 105 mg/dL (65-115); Osmolality Calculated 289 mOsm/kg (285-295); Sodium 139 mmol/L (136-145)
[2023-05-02] MEDS: budesonide 0.5 mg/2 mL Neb INHALATION (07:29)
[2023-05-02] MEDS: albuterol 2.5 mg/3 mL Neb INHALATION (07:29)
[2023-05-02 07:32] VITALS: PULSE 83; RESP 16; O2SAT 96
[2023-05-02] MEDS: ceFAZolin 2,000 MG in sodium chloride 0.9% (plus) 50 ML 100 MG IV (07:54)
[2023-05-02] MEDS: cyclobenzaprine 10 mg Tablet PO (08:59)
[2023-05-02] MEDS: pantoprazole DR 40 mg Tablet PO (08:59)
[2023-05-02] MEDS: isosorbide mononitrate ER 30 mg Tablet PO (08:59)
[2023-05-02] MEDS: gabapentin 400 mg Capsule 800 MG PO (08:59)
[2023-05-02] MEDS: metoprolol tartrate 25 mg Tablet 37.5 MG PO (08:59)
[2023-05-02] MEDS: hydroCHLOROthiazide 25 mg Tablet PO (08:59)
[2023-05-02] MEDS: aspirin 325 mg EC Tablet PO (08:59)
[2023-05-02] MEDS: chlorhexidine gluconate 0.12% UDC 15 mL 30 ML MUCOUS MEM (08:59)
[2023-05-02] MEDS: iron polysaccharide complex 150 mg Capsule PO (08:59)
[2023-05-02] MEDS: montelukast sodium 10 mg Tablet PO (08:59)
[2023-05-02 11:19] VITALS: BP 108/68; PULSE 63; RESP 18; TEMP 37; O2SAT 97
[2023-05-02 11:33] VITALS: PULSE 85; RESP 16; O2SAT 95
--- NOTE | 2023-05-02 13:01 | P.DS_ITS ---
Discharge Providers Date of Admission: 05/01/23 18:46 Date of Discharge: May 02, 2023 Attending Provider at Admission: Shruthi León MD Attending Provider at Discharge: Shruthi León MD Primary Care Provider: Randy Roy Jr, MD Diagnoses at Discharge Discharge Diagnosis (1) Osteoarthritis of left knee: Status: Chronic Qualifiers: Osteoarthritis type: unspecified Qualified Code(s): M17.12 - Unilateral primary osteoarthritis, left knee (2) Status post total left knee replacement not using cement: Details from hospital stay: Date of procedure: May 01, 2023 Diagnosis: Severe degenerative osteoarthritis left knee with large osteophytes and complete loss of cartilage. Procedure done: Left total knee arthroplasty with Alex guidance Implants: The Enmotus total knee system with a size 1 triathlon beaded cruciate retaining femur left, a triathlon titanium tibial component size 1 beaded, a triathlon X3 tibial bearing CS insert size 1 X 10 mm and a beaded triathlon titanium asymmetric patella size 29 x 9 mm Status: Acute Reason for Visit Reason for Visit: M17.43, 34781 Brief History: This 62-year-old woman presented to my office with complaints of left knee pain.? She had cortisone injection which resulted in relief for 1 day, and she stated after the lidocaine wore off she is experiencing pain the following morning.? She had physical therapy which merely aggravated the pain.? She took anti-inflammatories without relief.? She still had difficulties with activities of daily living and pain scale at 5 of 10.? 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 She is unable to sleep through the night.? Secondary to all these complaints and findings, the patient wished to proceed with total knee arthroplasty.? Risks and complications were discussed with her, and consents were signed.? All questions were answered. Hospital Course Hospital Course Patient was admitted under observation status following left total knee arthroplasty. She had an uneventful procedure and did well following the surgery. On the first postoperative day, she worked with physical therapy and was felt to be safe for discharge to home. She felt comfortable and pain was well managed. There was no evidence of DVT. Her wound was benign. Dressings were removed down to the OpSite. Patient will be discharged home for home physical therapy and will follow-up with me in the office as scheduled. Physical Exam Const: COMMON NORMALS: no acute distress, average body habitus, patient oriented x3 and alert GENERAL APPEARANCE: cooperative and comfortable ORIENTATION/CONSCIOUSNESS: Yes awake HENMT: COMMON NORMALS: normocephalic and atraumatic HEAD & SCALP: normocephalic and atraumatic Eye: GENERAL EYE: appearance normal, both eyes and all related structures Chest: COMMONS NORMALS: normal inspection of the chest Resp: COMMON NORMALS: normal respiratory effort EFFORT & INSPECTION: Yes a ble to speak in complete sentences and Yes symmetric chest movement Extremity: LEFT LOWER EXTREMITY: Yes knee joint (Patient is status post left t otal knee arthroplasty) Left knee: Yes inspection (Dressing is dry and intact.), Yes palpation (Minimal to no tenderness.), Yes ROM (Able to straight leg raise.) and Yes neurovascular exam (Intact distally.) Neuro: COMMON NORMALS: patient oriented x3 SENSORIUM/ORIENTATION: Yes alert Psych: COMMON NORMALS: mental status grossly normal APPEARANCE: Yes grossly normal ATTITUDE: Yes calm and Yes engaged ATTENTION/CONCENTRATION: Yes attention grossly intact Skin: COMMON NORMALS: no rashes or lesions noted GENERAL SKIN EXAM: no rashes or lesions noted Urinary Catheter Management: Grijalva: Cath Placed During This Visit: yes, but has since been removed by the nurse Reason for Continuing Indwelling Catheter: Decision to DC Catheter Urinary Catheter Date of Insertion: 05/01/23 Urinary Catheter Time of Insertion: 15:30 Date Urinary Catheter Removed: 05/02/23 Time Urinary Catheter Discontinued: 04:34 Discharge Data Studies Completed and Pending Completed Studies During Hospitalization Category Date Time Status XR knee LT 1-2V 82910 Routine Exams 05/01/23 19:13 Completed Radiology Impressions Knee X-Ray 05/01/23 19:13 IMPRESSION: Knee arthroplasty changes in place with postsurgical soft tissue changes. Laboratory Results WBC 12.5 10^3/uL (4.0-10.0) H 05/02/23 04:24 RBC 3.46 10^6/uL (4.1-5.3) L 05/02/23 04:24 Hgb 9.9 g/dL (11.5-15.3) L 05/02/23 04:24 Hct 33.2 % (37.0-47.0) L 05/02/23 04:24 MCV 96.0 fl (81-99) 05/02/23 04:24 MCH 28.6 pg (28.0-34.0) 05/02/23 04:24 MCHC 29.8 g/dL (30.0-36.0) L 05/02/23 04:24 RDW 13.5 % (12.1-15.1) 05/02/23 04:24 Plt Count 204 10^3/cmm (130-400) 05/02/23 04:24 MPV 10.2 fL (7.4-10.4) 05/02/23 04:24 Neut % (Auto) 83.5 % 05/02/23 04:24 Lymph % (Auto) 11.5 % 05/02/23 04:24 [place] % (Auto) 4.5 % 05/02/23 04:24 Eos % (Auto) 0.0 % 05/02/23 04:24 Baso % (Auto) 0.2 % 05/02/23 04:24 Neut # (Auto) 10.46 10^3/uL (1.8-7.7) H 05/02/23 04:24 Lymph # (Auto) 1.4 10^3/uL (0.8-4.8) 05/02/23 04:24 [place] # (Auto) 0.6 10^3/uL (0.2-0.9) 05/02/23 04:24 Eos # (Auto) 0.0 10^3/uL (0.0-0.8) 05/02/23 04:24 Baso # (Auto) 0.0 10^3/uL (0.0-0.1) 05/02/23 04:24 Nucleated RBC % (auto) 0 % 05/02/23 04:24 Nucleated RBCs # 0.0 /100WBC 05/02/23 04:24 Sodium 139 mmol/L (136-145) 05/02/23 06:17 Potassium 4.0 mmol/L (3.5-5.1) 05/02/23 06:17 Chloride 106 mmol/L (98-107) 05/02/23 06:17 Carbon Dioxide 24 mmol/L (22-29) 05/02/23 06:17 Anion Gap 13.0 (5-19) 05/02/23 06:17 BUN 15 mg/dL (8-23) 05/02/23 06:17 Creatinine 0.6 mg/dL (0.5-0.9) 05/02/23 06:17 GFR Calculation 101.6 mL/min (90-130) 05/02/23 06:17 Glucose 105 mg/dL (65-115) 05/02/23 06:17 Calculated Osmolality 289 mOsm/kg (285-295) 05/02/23 06:17 Calcium 8.9 mg/dL (8.5-10.5) 05/02/23 06:17 Urine Color Yellow (Yellow) 05/01/23 12:24 Urine Appearance Clear (CLEAR) 05/01/23 12:24 Urine pH 6 (5-7) 05/01/23 12:24 Ur Specific [place] 1.015 (1.005-1.030) 05/01/23 12:24 Urine Protein Neg (Negative) 05/01/23 12:24 Urine Glucose (UA) Norm (Normal) 05/01/23 12:24 Urine Ketones Negative (Negative) 05/01/23 12:24 Urine Blood Neg (Negative) 05/01/23 12:24 Urine Nitrate Negative (Negative) 05/01/23 12:24 Urine Bilirubin Neg (Negative) 05/01/23 12:24 Urine Urobilinogen Norm mg/dL (Negative) 05/01/23 12:24 Ur Leukocyte Esterase Negative (Negative) 05/01/23 12:24 Vitals Last Vital Signs Temp 98.6 F 05/02/23 11:19 Pulse 85 05/02/23 11:33 Resp 16 05/02/23 11:33 BP 108/68 05/02/23 11:19 Pulse Ox 95 05/02/23 11:33 O2 Del Method Room Air 05/02/23 11:33 O2 Flow Rate 6 05/01/23 19:13 Discharge Plan Discharge Patient Disposition: Home Condition: Stable Prescriptions: New celecoxib 200 mg Capsule 200 mg PO 1XD 30 Days Qty: 30 0RF aspirin 325 mg Tablet,Delayed Release (Dr/Ec) 325 mg PO DAILY 30 Days Qty: 30 0RF hydrocodone-acetaminophen 10-325 mg tablet 1 tab PO Q4H PRN (Reason: pain) 7 Days Qty: 30 0RF Continued isosorbide mononitrate 30 mg tablet extended release 24 hr 30 mg PO BID Qty: 90 3RF fluticasone propion-salmeterol [Advair Diskus] 100-50 mcg/dose blister with device 1 puff INHALATION BID albuterol sulfate [Ventolin HFA] 90 mcg/actuation HFA aerosol inhaler 2 puff INHALATION Q6H PRN (Reason: Shortness Of Breath) omega-3 fatty acids 500 mg capsule 500 mg PO BID pantoprazole [Protonix] 40 mg tablet,delayed release (DR/EC) 40 mg PO DAILY cyclobenzaprine 10 mg tablet 10 mg PO TID duloxetine [Cymbalta] 60 mg capsule,delayed release(DR/EC) 120 mg PO DAILY hydrochlorothiazide 12.5 mg tablet 25 mg PO DAILY Hold Instructions: Resume on 11/14/22. montelukast [Singulair] 10 mg tablet 10 mg PO DAILY cetirizine [Zyrtec] 10 mg tablet 10 mg PO DAILY nitroglycerin [Nitrostat] 0.4 mg tablet, sublingual 0.4 mg sublingual Q5M PRN (Reason: chest pain) Qty: 25 3RF Rx Instructions: do not exceed 3 doses per episode metoprolol tartrate 25 mg tablet 37.5 mg PO BID Qty: 90 6RF rosuvastatin 20 mg tablet 20 mg PO DAILY Qty: 30 0RF Rx Instructions: MUST have follow-up with new provider for further refills alprazolam 0.5 mg tablet 0.5 mg PO BEDTIME PRN (Reason: Anxiety) gabapentin 800 mg tablet 800 mg PO TID Discharge Orders: Discharge Order (Routine); Ordered 05/02/23 Ordered By: Shruthi León Other Ambulatory Orders: Physical Therapy Eval and Treat Outpatient (Order) Timeframe: 3 Days Facility: [facility] - Location: Physical Therapy Ordered By: Shruthi León Referrals: Shruthi León MD [Physician] - 05/15/23 8:45 am Discharge Diet: Advance as tolerated and Usual diet Discharge Activity: Resume usual activity, Increase activity as tolerated, Limit activity as instructed, Use walker/crutches as instructed and As per PT/OT instructions Patient Instructions: Oxycodone/Acetaminophen (By mouth), Aspirin (By mouth), Celecoxib (By mouth), Knee Replacement (GEN), Joint Replacement Stoplight, Opioid Safety Activity Restrictions/Additional Instructions: Range of motion, gait training, ambulation with physical therapy. Elevate left lower extremity. Maintain dressing until it comes off on its own. Discharge Attestations Time Spent in Discharge Care*: greater than 30 min Specific Discharge Activities: educating patient, documenting/other paperwork and evaluating patient/reviewing data Quality Metrics Clinical Quality Measures [ No reported AMI, CVA or VTE this stay] Coding Level of Care Code Acute Code for [facility] Fwd Diagnoses Osteoarthritis of left knee M17.12 Osteoarthritis type: unspecified Status post total left knee replacement not using cement Z96.652
[2023-05-02 13:59] VITALS: PULSE 85; RESP 16; O2SAT 95
== END 2023-05-02 14:00 | disposition home or self-care (01) ==
LOC: MEDSURG 18:47
PROVIDERS: Admitting Provider Specialist; PCP Family Medicine; Visit Provider Specialist
PROC: (CPT 27447; principal; 2023-05-01 13:10)
DX: M17.12 Unilateral primary osteoarthritis, left knee (principal); J44.9 Chronic obstructive pulmonary disease, unspecified; I10 Essential (primary) hypertension; K21.9 Gastro-esophageal reflux disease without esophagitis; M79.7 Fibromyalgia; E78.00 Pure hypercholesterolemia, unspecified
CPT/HCPCS: 27447; 36415; 51702; 73560; 80048; 81003; 85025; 94640; 97161; 97165; C1776; C9290; G0378; J0131; J0690; J1100; J1170; J2250; J2405; J2704; J3010; J3490; J7030; J7613; J7626

== ENCOUNTER → 2023-05-15 09:00 | Outpatient (BNVA) | payer BC, SELFPAY | PROVIDERS: PCP Family Medicine; Visit Provider Nurse Practitioner Family | DX: Z96.652 Presence of left artificial knee joint (principal) | CPT/HCPCS: 73560; 73565 ==

== ENCOUNTER 2023-05-17 12:25 | Outpatient (RCR) | payer BC, SELFPAY | END 2023-05-18 23:59 | disposition home or self-care (01) | LOC: SPT 12:25 | PROVIDERS: Visit Provider Specialist | DX: Z47.1 Aftercare following joint replacement surgery (principal); Z96.652 Presence of left artificial knee joint | CPT/HCPCS: 97110; 97161 ==

== ENCOUNTER 2023-05-19 06:00 | Outpatient (RCR) | payer BC, SELFPAY | END 2023-06-18 23:59 | disposition home or self-care (01) | LOC: SPT 06:00 | PROVIDERS: Visit Provider Specialist | DX: Z47.1 Aftercare following joint replacement surgery (principal); Z96.652 Presence of left artificial knee joint | CPT/HCPCS: 97110 ==

== ENCOUNTER → 2023-06-13 09:01 | Outpatient (BNVA) | payer BC, SELFPAY | PROVIDERS: Visit Provider Nurse Practitioner Family | DX: Z96.652 Presence of left artificial knee joint (principal); M17.11 Unilateral primary osteoarthritis, right knee | CPT/HCPCS: 73560; 73565 ==

== ENCOUNTER 2023-06-19 06:00 | Outpatient (RCR) | payer BC, SELFPAY | END 2023-07-19 23:59 | disposition home or self-care (01) | LOC: SPT 06:00 | PROVIDERS: Visit Provider Specialist | DX: Z47.1 Aftercare following joint replacement surgery (principal); Z96.652 Presence of left artificial knee joint | CPT/HCPCS: 97110 ==

== ENCOUNTER 2023-07-20 06:00 | Outpatient (RCR) | payer BC, SELFPAY | END 2023-08-18 23:59 | disposition home or self-care (01) | LOC: SPT 06:00 | PROVIDERS: Visit Provider Specialist | DX: Z47.1 Aftercare following joint replacement surgery (principal); Z96.652 Presence of left artificial knee joint | CPT/HCPCS: 97110 ==

== ENCOUNTER 2023-07-25 14:27 | Outpatient (CLI) | payer BC, SELFPAY ==
--- NOTE | 2023-07-25 14:39 | USCV_ITS ---
Jennifer Wilson Age: 62 Gender: F : 1960 Exam Date: 07/25/2023 14:55 Ordering Phys: Ela Meadows Technologist: Pushpa Bazzi Exam Location: [facility] [place] Indication: CARDIAC MURMUR BP: / HR: 73 Rhythm: Sinus Technical Quality: Adequate MEASUREMENTS (Male / Female) Normal Values 2D ECHO LV Diastolic Diameter PLAX 3.8 cm 4.2 - 5.9 / 3.9 - 5.3 cm LV Systolic Diameter PLAX 2.4 cm LV Chamber Size 2.9 cm IVS Diastolic Thickness 1.0 cm 0.6 - 1.0 / 0.6 - 0.9 cm IVS Systolic Thickness 0.9 cm LVPW Diastolic Thickness 1.3 cm 0.6 - 1.0 / 0.6 - 0.9 cm LVPW Systolic Thickness 1.3 cm RV Chamber Size 2.3 cm LVOT Diameter 2.0 cm LV Ejection Fraction 2D Teich 67.4 % LV Ejection Fraction MOD 2C 61.9 % LV Ejection Fraction 2C AL 61.5 % LA Diameter 2.6 cm LA Width 2.9 cm LA Height 3.8 cm RA Width 2.5 cm RA Height 2.8 cm Aorta at Sinotubular Diameter 2.5 cm IVC Diameter 1.8 cm M-MODE Aortic Annulus Diameter 2.8 cm LA Ao Ratio MM 1.1 MV E Point Septal Separation 0.4 cm DOPPLER AV Peak Velocity 188.0 cm/s LVOT Peak Velocity 149.0 cm/s AV Area Cont Eq vti 2.3 cm squared AV Area Cont Eq pk 2.6 cm squared MV Area PHT 3.7 cm squared Mitral E to A Ratio 1.2 MV E' Velocity 61.0 cm/s Mitral E to MV E' Ratio 10.8 Mitral E to LV E' Lateral Ratio 9.9 Mitral E to LV E' Septal Ratio 12.0 TR Peak Velocity 136.8 cm/s TR Peak Gradient 7.5 mmHg TR Mean Velocity 92.4 cm/s TR Mean Gradient 3.8 mmHg TR Velocity Time Integral 28.1 cm TV Peak E Velocity 56.0 cm/s Right Atrial Pressure 3.0 mmHg Pulmonary Artery Systolic Pressu 10.5 mmHg RV Acceleration Time 0.1 s RV Ejection Time 0.3 s RV AcT/ET 0.4 FINDINGS Left Ventricle Normal left ventricular size and systolic function, EF 63 %. No regional wall motion abnormalities. Right Ventricle The right ventricle is normal in size and function. Right Atrium The right atrium is normal in size. Left Atrium The left atrium is normal in size. Mitral Valve Trace mitral valve regurgitation. Aortic Valve Thickened aortic valve. Tricuspid Valve No gross abnormalities noted Pulmonic Valve No gross abnormalities noted Pericardium Normal pericardium without effusion. Aorta Normal ascending aorta dimension. IVC The inferior vena cava appears normal. CONCLUSIONS Normal left ventricular size and systolic function, EF 63 %. No regional wall motion abnormalities. Features of aortic valve sclerosis Trace mitral valve regurgitation. There is no pericardial effusion. There are no intracardiac masses. Compared to the study from 08/06/2021, there appears to be slightly more restriction at the aortic valve Dr Kay Bailey MD FACC (Electronically Signed) Final Date: 25 July 2023 20:44 S
== END 2023-07-25 14:28 | disposition home or self-care (01) ==
LOC: RAD 14:29
PROVIDERS: Visit Provider Nurse Practitioner Family
DX: R01.1 Cardiac murmur, unspecified (principal)
CPT/HCPCS: 93306

== ENCOUNTER → 2023-08-13 11:24 | Outpatient (BNVA) | payer BC, SELFPAY | PROVIDERS: Visit Provider Specialist | DX: Z96.652 Presence of left artificial knee joint (principal) | CPT/HCPCS: 73560; 73565 ==

== ENCOUNTER → 2023-08-15 08:02 | Outpatient (BNVA) | payer BC, SELFPAY | PROVIDERS: Visit Provider Specialist | DX: M17.11 Unilateral primary osteoarthritis, right knee (principal) | CPT/HCPCS: 36415; 73560; 73565; 80053; 81003; 83036; 85025 ==

== ENCOUNTER 2023-08-31 06:05 | Outpatient (CLI) | payer BC, SELFPAY ==
--- NOTE | 2023-08-31 06:30 | CT_ITS ---
WS: [email or web address] CT RIGHT KNEE, NONCONTRAST HISTORY: M17.11 - Unilateral primary osteoarthritis, right knee Technique: All CT scans at [facility] use at least one of these dose optimization techniques: automated exposure control; mA and/or kV adjustment per patient size (includes targeted exams where dose is matched to clinical indication); or iterative reconstruction. DLP: 297.89 mGy.cm COMPARISON: Radiographs 08/15/2023 No fractures or displacement. Moderate hypertrophic bone formation at the level of the femoral condyl es, joint line and proximal tibia. Moderate narrowing of the medial compartment. Sclerotic and subcho ndral cystic changes along the tibial plateau. Marginal osteophytes are noted bilaterally. No fractur e or loose body. There is a small sclerotic bone island in the medial femoral condyle along the weigh tbearing surface. There is a small suprapatellar joint effusion. Patella is normally positioned. No Paris's cyst identi fied. No muscle atrophy. IMPRESSION: 1. No RIGHT knee fracture or displacement. 2. Moderate medial compartment osteoarthritic changes. 3. Tricompartment osteophytes. Most significant cortical irregularity is along the lateral tibial robbi teau.
--- NOTE | 2023-08-31 15:13 | CT_ITS ---
NOTE: Report was unsigned for reason: Order was edited. Original Signature date and time was: 08/31/2023 0936 Addendum 09/14/[address] [address] [address] Scan Report Signed with Addsammie Patient: Jennifer Wilson Unit #: [id number] : 1960 Age/Sex: 62 / F ADM Date: 08/31/23 Loc: RAD Room/Bed: Attending Dr: Shruthi León MD Ordering Provider/Ordering MD: Shruthi León MD Date of Service: 08/31/23 Procedure(s): CT knee RT wo con* [id number] Accession Number(s): [id number] Report Number: [id number] ADDENDUM WS: [email or web address] This study has been converted to a [facility] protocol. Additional imaging has been obtained and will be combined with the prior examination from 08/31/2023. Pelvis: No significant joint space narrowing. Normal appearance of the soft tissues. RIGHT knee: As indicated on the prior study moderate medial compartment arthritis. Tricompartmental osteophytes. No fractures. RIGHT ankle: No fractures or dislocation. No soft tissue abnormality. Addendum Dictated By: Maria Victoria Mason DO Addendum Signed By: Maria Victoria Mason DO Signed Date/Time: 09/14/23 1258 Addendum Cosigned By: WS: [email or web address] CT RIGHT KNEE, NONCONTRAST HISTORY: M17.11 - Unilateral primary osteoarthritis, right knee Technique: All CT scans at [facility] use at least one of these dose optimization techniques: automated exposure control; mA and/or kV adjustment per patient size (includes targeted exams where dose is matched to clinical indication); or iterative reconstruction. DLP: 297.89 mGy.cm COMPARISON: Radiographs 08/15/2023 No fractures or displacement. Moderate hypertrophic bone formation at the level of the femoral condyles, joint line and proximal tibia. Moderate narrowing of the medial compartment. Sclerotic and subchondral cystic changes along the tibial plateau. Marginal osteophytes are noted bilaterally. No fracture or loose body. There is a small sclerotic bone island in the medial femoral condyle along the weightbearing surface. There is a small suprapatellar joint effusion. Patella is normally positioned. No Paris's cyst identified. No muscle atrophy. IMPRESSION: 1. No RIGHT knee fracture or displacement. 2. Moderate medial compartment osteoarthritic changes. 3. Tricompartment osteophytes. Most significant cortical irregularity is along the lateral tibial plateau. Dictated By:Maria Victoria Mason DO Signed By: Maria Victoria Mason DO Signed Date/Time: 08/31/23 0936 DD[facility]
== END 2023-08-31 06:06 | disposition home or self-care (01) ==
PROVIDERS: PCP Family Medicine; Visit Provider Specialist
DX: M17.11 Unilateral primary osteoarthritis, right knee (principal); M25.761 Osteophyte, right knee
CPT/HCPCS: 73700

== ENCOUNTER 2023-09-18 14:39 | Observation (INO) | payer BC, SELFPAY ==
[2023-09-18] VITALS (13 sets, daily range): BP systolic 104–125; BP diastolic 62–80; PULSE 68–83; RESP 16–20; TEMP 36.3–37.1; O2SAT 93–100; BMI 33.8
--- NOTE | 2023-09-18 09:57 | W.PM.OPSUD ---
Surgery/Procedure H&P Update DATE OF PROCEDURE: September 18, 2023 DATE H&P PERFORMED: 08/31/23 H&P UPDATE INFORMATION: I have reviewed H&P completed within last 30 days, I have examined patient prior to procedure and No changes to prior documentation PREOP DIAGNOSIS: Severe osteoarthritis right knee PRIMARY INDICATION FOR PROCEDURE: Severe osteoarthritis of the right knee. Iterfering with ADL's. PLANNED PROCEDURE: Operation Date: 09/18/23 11:05 Proposed Procedures p RIGHT TOTAL KNEE ARHTROPLASTY WITH CYNDY GUIDANCE 56663,M17.10(Right) - Shruthi León MD
[2023-09-18] MEDS: CELEcoxib 200 mg Capsule 400 MG PO (10:05)
[2023-09-18] MEDS: sodium chloride 0.9% 1,000 ML 30 ML IV (10:06)
[2023-09-18] MEDS: gabapentin 300 mg Capsule PO (10:06)
[2023-09-18] MEDS: acetaminophen 1,000 MG/100 ML PIGGYBACK 400 MG IV (10:08)
--- NOTE | 2023-09-18 10:08 | P.ANESASSM_ITS ---
Pre-Anesthetic Assessment Height/Weight: Height 1.47 m Weight 73.482 kg O2 Del Method Room Air 09/18/23 09:35 Preop Diagnosis: Severe osteoarthritis right knee Operation Date: 09/18/23 11:05 Proposed Procedures p RIGHT TOTAL KNEE ARHTROPLASTY WITH CYNDY GUIDANCE 91839,M17.10(Right) - Shruthi León MD Familial anesthetic complications: none Was Beta Ayesha taken within 24 hours: N/A Was Clonidine taken within 24 hours: N/A Last intake: Intake Last Liquid Date 09/17/23 Last Liquid Time 22:45 Last Solid Date 09/17/23 Last Solid Time 22:45 Social No alcohol and No tobacco Exam alert, oriented x 3, clear to auscultation bilaterally and regular rate & rhythm Airway Mallampati: Class II Dentition: false Pulmonary Chronic Obstructive Pulmonary Disease CV/HEM Stable Angina and Hypertension GI Gastroesophageal Reflux Disease Metabolic Hyperlipidemia Anesthetic Plan ASA status: 3 Anesthesia: Regional (specify below) Risk of > 500 ml blood loss (7ml/kg in children): Yes, adequate IV access and fluids planned Medications/Allergies Home Medications Medication Instructions Recorded Confirmed Last Taken Type albuterol sulfate 90 mcg/actuation 2 puff inhalation Q6H PRN 02/17/20 09/17/23 09/10/23 History aerosol inhaler (Ventolin HFA) Shortness Of Breath cyclobenzaprine 10 mg tablet 10 mg PO TID 02/17/20 09/17/23 09/17/23 History fluticasone 100 mcg-salmeterol 50 1 puff inhalation BID 02/17/20 09/17/23 09/18/23 History mcg/dose blistr powdr for inhalation (Advair Diskus) omega-3 fatty acids 500 mg capsule 500 mg PO BID 02/17/20 09/17/23 08/19/23 History pantoprazole 40 mg tablet,delayed 40 mg PO DAILY 02/17/20 09/17/23 09/17/23 History release (Protonix) cetirizine 10 mg tablet (Zyrtec) 10 mg PO DAILY 05/11/21 09/17/23 09/17/23 History duloxetine 60 mg capsule,delayed 120 mg PO DAILY 05/11/21 09/17/23 09/17/23 History release (Cymbalta) montelukast 10 mg tablet 10 mg PO DAILY 05/11/21 09/17/23 09/17/23 History (Singulair) nitroglycerin 0.4 mg sublingual 0.4 mg sublingual Q5M PRN chest 05/11/21 09/17/23 Unknown Rx tablet (Nitrostat) pain #25 tabs hydrochlorothiazide 12.5 mg tablet 25 mg PO DAILY 11/25/21 09/17/23 09/17/23 History isosorbide mononitrate 30 mg 30 mg PO BID #90 tabs 11/25/21 09/17/23 09/18/23 Rx tablet,extended release 24 hr metoprolol tartrate 25 mg tablet 37.5 mg PO BID #90 tabs 11/30/21 09/17/23 09/18/23 Rx rosuvastatin 20 mg tablet 20 mg PO DAILY #30 tabs 08/29/22 09/17/23 09/17/23 Rx alprazolam 0.5 mg tablet 0.5 mg PO BEDTIME PRN Anxiety 11/11/22 09/17/23 09/18/23 History gabapentin 800 mg tablet 800 mg PO TID 11/11/22 09/17/23 09/17/23 History Allergies Allergy/AdvReac Type Severity Reaction Status Date / Time morphine Allergy Mild Rash/itchin Verified 09/18/23 09:45 g oxycodone [From Percocet] Allergy Mild Hives Verified 09/18/23 09:45 [facility] Anesthesia Medical History Acute exacerbation of chronic obstructive airways disease Altered mental status Anxiety disorder Aspiration pneumonia COPD (chronic obstructive pulmonary disease) COPD (chronic obstructive pulmonary disease) Depression Displacement of lumbar disc with radiculopathy Fibromyalgia HTN (hypertension) with goal to be determined Hypercholesterolemia Moderate pulmonary hypertension Pneumonia Tobacco use UTI (urinary tract infection) Surgical History H/O section H/O: hysterectomy History of carpal tunnel surgery Family History Grandfather CAD (coronary artery disease) Grandmother CAD (coronary artery disease) Diabetes Hypertension Brother Diabetes Father Hypertension Mother Hypertension Social History Alcohol intake: never Substance/Drug Use: never Lives independently: Yes Household members: spouse Marital status: Current occupational status: employed Current occupation: CMT at [employer] Data Anesthesia Cardiac Studies: Echocardiogram 07/25/23 Echocardiogram Ultrasound 06/29/21
[2023-09-18 10:21] LABS: Add Urine Microscopic? NO; Charge for UA Resulting for Rev
[2023-09-18 10:25] LABS: Bilirubin Urine Neg (Negative); Blood Urine Neg (Negative); Glucose Urine UA Norm (Normal); Ketones Urine Negative (Negative); Leukocyte Esterase Urine Negative (Negative); Nitrate Urine Negative (Negative); Protein Urine Neg (Negative); Specific Gravity, Urine 1.025 (1.005-1.030); Urine Appearance Clear (CLEAR); Urine Color Yellow (Yellow); Urobilinogen Urine Norm (Negative); pH Urine 5 (5-7)
[2023-09-18] MEDS: famotidine 20 mg/2 mL INJ IVP (10:35)
[2023-09-18] MEDS: ondansetron 2 mg/ML SDV 2 mL 4 MG IVP (10:35)
[2023-09-18] MEDS: midazolam 1 mg/mL INJ 2 mL 2 MG IVP (10:35)
--- NOTE | 2023-09-18 10:44 | ANES.PROC ---
Anesthesia Procedures Procedure/Date: 09/18/23 Nerve Block ^: Nerve Block 1: Main Anesthesia: spinal anesthesia block Time Out Performed: Yes Consent: requested by attending/covering physician, from patient, from other, risks and benefits reviewed and patient agrees to proceed Nerve block location: adductor canal (R) Anesthesia monitors applied: pulse oximetry, EKG, BP cuff and oxygen Nerve block position: supine Anesthetic Used: ropivicaine 0.5% (30 ml) and with decadron (4 mg) Ultrasound used to: recognize landmarks and visualize and ID femerol nerve Nerve Stimulator Used?: No Interscalene/Femoral BLK: 4 stimuplex 21 g needle used for position and inplane approach, visualize local anesthetic spread and no vascular puncture identified Injection: neg aspiration of heme Patient Tolerated Procedure: well and no complications Complications: none
[2023-09-18] MEDS: ceFAZolin 2,000 MG in sodium chloride 0.9% (plus) 50 ML 100 MG IV (10:49)
--- NOTE | 2023-09-18 10:51 | PC.NURSE ---
1030 patient upset to stomach. Zofran and Pepcid given. Dr. Anderson here to do block for surgery. Patient crying and scared to have procedure. Dr. Anderson talked to her and order for versed given. Time out was performed prior procedure and meds. Patient tolerated procedure well.
[2023-09-18] MEDS: tranexamic acid 1,000 mg/10mL SDV 1000 MG IV (11:35)
[2023-09-18] MEDS: ceFAZolin 1,000 mg SDV 2000 MG IRRIGATION (11:51)
[2023-09-18] MEDS: BUPivacaine liposome 13.3 mg/mL SDV 10 mL 266 MG INFILTRATI (11:54)
[2023-09-18] MEDS: BUPivacaine 0.5% INJ 30 mL INJECTION (11:55)
[2023-09-18] MEDS: vancomycin 1,000 MG SDV 1000 MG XX (11:57)
--- NOTE | 2023-09-18 14:25 | XRR_ITS ---
PROCEDURE INFORMATION: Exam: XR Right Knee Exam date and time: 09/18/2023 2:38 PM Age: 62 years old Clinical indication: Device placement; Joint replacement hardware; Prior surgery; Surgery date: Post-operative (0-2 days); Surgery type: Right total knee; Additional info: Status post right total knee TECHNIQUE: Imaging protocol: Radiologic exam of the right knee. Views: 1 or 2 views. COMPARISON: No relevant prior studies available. FINDINGS: Bones/joints: There is an intact and well aligned total knee prosthesis. There is no acute fracture. Soft tissues: Skin balaji and subcutaneous edema noted. XR/XR knee RT 1-2V 10565 IMPRESSION: Expected postoperative findings in the knee.
--- NOTE | 2023-09-18 15:05 | PM.OP ---
Operative Report Date of procedure: September 18, 2023 Pre-op diagnosis: Severe degenerative osteoarthritis right knee Post-op diagnosis: Severe degenerative osteoarthritis right knee Post-op findings: Severe degenerative osteoarthritis with large osteophytes and complete loss of cartilage. Procedure done: Right total knee arthroplasty with Alex guidance Implants: The [place] total knee system with a size 1 triathlon beaded cruciate retaining femur right, a triathlon titanium tibial component size 1 beaded, a triathlon X3 tibial bearing CS insert size 1 X 9 mm and a beaded triathlon titanium asymmetric patella size 29 x 9 mm Specimens removed/disposition: Bone, disposed of Surgeon: Shruthi León MD Floor Finisher Helper: Pauly Llanes NP.? Floor Finisher Helper was required for positioning, retraction, use of the Alex guided total knee arthroplasty and closure. Anesthesia: Spinal (With MAC and adductor block, ASA 3) Estimated blood loss (mL): 150 Tourniquet time (min): 0 (Not utilized) IV fluids (mL): 1,200 Urine output (mL): 200 Complications: None Findings: Severe degenerative osteoarthritis with large osteophytes and slight varus deformity. Condition: stable Disposition: PACU (Then return to floor for postoperative rehabilitation and pain management.) Brief History: This 62-year-old woman initially presented with complaints of bilateral knee pain. Her left was worse than her right, and in April of this year, she underwent Left total knee arthroplasty which was well-tolerated., She presents for right total knee arthroplasty. Injection therapy has not worked for her in the recent past. Anti-inflammatories have not been of benefit, and she still has significant difficulty with activities of daily living. Patient is unable to sleep through the night, and given her response to her prior left total knee arthroplasty, she wishes to proceed with right total knee arthroplasty. Risks and complications are discussed with her. Preoperatively in the office, questions were answered. Consents were signed. Procedure: The patient was brought to the operating theater, and after undergoing spinal anesthesia with supplemental MAC, as well as an adductor canal block, ASA 3, the right lower extremity was prepped with Dura-Prep and draped in usual fashion following placement of a tourniquet high on the leg. The leg was then draped free.? Tourniquet was not elevated during the case.? A surgical pause was performed, and at the time of the surgical pause, we confirmed the site and side of surgery. Additionally, we confirmed the appropriate and timely administration of preoperative antibiotics, Ancef 2 g and Transexemic acid 1 g.? The availability of equipment was confirmed, and the patient's identity was verbalized as well.? An additional transexemic acid 1 g will be given on the floor as well. Following the surgical pause, an incision was made centering over the patella continuing proximally and distally as necessary to allow access to the knee joint. Dissection continued through skin and soft tissues using a scalpel. Hemostasis was obtained using electrocautery. The skin incision was followed by a median parapatellar arthrotomy. The leg was extended and the patella was able to be displaced laterally.? Appropriate arrays and markers were placed in appropriate position for use of the Alex.? Preoperative planning had been accomplished and was discussed in detail with the [facility] customer contact representative.? Intraoperative mapping of the femur and tibia was accomplished after the arrays were placed.? Internal markers were also placed.? Once we had accomplished the Alex mapping, we began the appropriate resections for placement of the prosthesis.? The plan was for a cruciate retaining right total knee arthroplasty. Once appropriate mapping had been accomplished, retraction was established using manual retraction by surgical technicians and also the Alex leg positioner and retractors.? The knee was evaluated.? There was significant osteoarthritic change with significant osteophyte formation a significant varus deformity.? Appropriate bone resection was accomplished using the Alex.? The femur was sized to a size 1.? Following femoral cuts, attention was directed to the tibia.? Osteophytes were removed prior to this portion of the procedure.? We had performed a medial release at the beginning of the procedure to allow for placement of the array and to allow for better planning with flexion and extension adjustments per Alex programming.? Proximal tibia was evaluated, and it was felt that appropriate size for the tibia was a size 1.? Tray was noted to fit nicely with good coverage.? Rim fit was accomplished with the size 1. A trial reduction was accomplished after osteophytes have been removed as well as the medial and lateral menisci.? We had removed the anterior cruciate ligament at the beginning of the case and preserved the posterior cruciate ligament.? Trial reduction was accomplished with a size 1 femoral cruciate retaining component and a size 1 CS tibial bearing insert which was 9 mm in thickness.? Final insert was an 9 mm implant.? Alignment was felt to be appropriate as well.? Trial components were removed after the femur had been drilled.? Prior to removal of the tibial tray which had been pinned in position with appropriate rotation as determined by the Alex plan, we broached the tibia.? Subsequently, the 4 drill holes were made for the prosthetic component.? All trial components were removed, and the wound was irrigated.? Plans were made for insertion of the prosthetic components.? Prior to this, the patella was manually prepared.? After resection of the articular surface with the jogging system, it was measured and measured a 29 mm patella.? We resected approximately 7 mm of patella.? Patellar height was restored with the patellar component. Once again, the wound was irrigated.? The Tritanium tibia was impacted into position.? The beaded femur was then impacted into position in a cementless fashion. The CS tibial insert was placed prior to placement of the femoral component. The patella was pressed into position with a patellar clamp.? Exparel was injected about the components deep and superficially.? The knee was then copiously irrigated with betadine and saline and suctioned dry. Attention was then directed to closure. Closure was accomplished with 0 Vicryl in the fascial tissues.? This was followed by Surgiflo and vancomycin powder.? Following this, a 2-0 Monocryl was used in the subcutaneous tissues, and the skin was closed with skin balaji.? Care was taken to assure an excellent subcutaneous as well as skin closure.? A sterile dressing was then placed consisting of Dermabond Prineo, OpSite, sterile soft roll including over the foot, and an Vasyl wrap. The patient was returned the Recovery Room in a satisfactory condition. X-rays were obtained and reviewed there.? The patient will be discharged to the floor for postoperative rehabilitation and pain management. Related Problem List Diagnoses (1) Osteoarthritis of right knee: (2) Status post total right knee replacement not using cement:
--- NOTE | 2023-09-18 15:10 | ANE.PACU2 ---
Inpatient post-anesthesia follow up: Airway intact: Yes Vital signs: Temperature 98.2 F Pulse Rate 83 Respiratory Rate 19 Blood Pressure 121/68 Pulse Oximetry 95 Oxygen Delivery Me thod Room Air Oxygen Flow Rate 6 Fraction of Inspir ed Oxygen Hydration adequate: Yes Nausea and vomiting: No Pain level: 1 Mental status: Baseline
[2023-09-18] MEDS: HYDROcodone-acetaminophen 5-325 mg Tablet 1 TAB PO (16:03)
[2023-09-18] MEDS: cyclobenzaprine 10 mg Tablet PO (16:03)
[2023-09-18] MEDS: iron polysaccharide complex 150 mg Capsule PO (17:51)
--- NOTE | 2023-09-18 18:04 | P.DS_ITS ---
Discharge Providers Date of Admission: 09/18/23 14:39 Date of Discharge: September 18, 2023 Attending Provider at Admission: Shruthi León MD Attending Provider at Discharge: Shruthi León MD Primary Care Provider: Randy Roy Jr, MD Diagnoses at Discharge Discharge Diagnosis (1) Osteoarthritis of right knee: Status: Acute (2) Status post total right knee replacement not using cement: Status: Acute Permanent problem details: Date of procedure: September 18, 2023 Diagnosis: Severe degenerative osteoarthritis right knee Procedure done: Right total knee arthroplasty with Alex guidance Implants: The [place] total knee system with a size 1 triathlon beaded cruciate retaining femur right, a triathlon titanium tibial component size 1 beaded, a triathlon X3 tibial bearing CS insert size 1 X 9 mm and a beaded triathlon titanium asymmetric patella size 29 x 9 mm Reason for Visit Reason for Visit: [id number] Brief History: This 62-year-old woman initially presented with complaints of bilateral knee pain.? Her left was worse than her right, and in April of this year, she underwent Left total knee arthroplasty which was well-tolerated.,? She presents for right total knee arthroplasty.? Injection therapy has not worked for her in the recent past.? Anti-inflammatories have not been of benefit, and she still has significant difficulty with activities of daily living.? Patient is unable to sleep through the night, and given her response to her prior left total knee arthroplasty, she wishes to proceed with right total knee arthroplasty.? Risks and complications are discussed with her.? Preoperatively in the office, questions were answered.? Consents were signed. Hospital Course Hospital Course Patient was admitted under observation status to the [facility] floor following same-day right total knee arthroplasty with Alex guidance. She did well, and in fact, the evening of surgery, her Grijalva was discontinued and she was independently ambulatory. There was no evidence of DVT. Patient's pain was well controlled. As she had had a total knee arthroplasty on the opposite side, she knew what to expect in the postoperative rehabilitation period. She was seen on the floor, and she was easily able to get in and out of her bed. Therefore, at the patient's wish, she was discharged home the evening of surgery. Physical Exam Const: COMMON NORMALS: no acute distress, average body habitus, patient oriented x3 and alert GENERAL APPEARANCE: cooperative and comfortable ORIENTATION/CONSCIOUSNESS: Yes awake HENMT: COMMON NORMALS: normocephalic and atraumatic HEAD & SCALP: normocephalic and atraumatic Eye: GENERAL EYE: appearance normal, both eyes and all related structures Chest: COMMONS NORMALS: normal inspection of the chest Resp: COMMON NORMALS: normal respiratory effort EFFORT & INSPECTION: Yes able to speak in complete sentences and Yes symmetric chest movement Extremity: RIGHT LOWER EXTREMITY: Yes knee joint (Dressing is dry and intact.) Right knee: Yes ROM (Not evaluated) and Yes neurovascular exam (No evidence of DVT) Neuro: COMMON NORMALS: patient oriented x3 SENSORIUM/ORIENTATION: Yes alert Psych: COMMON NORMALS: mental status grossly normal APPEARANCE: Yes grossly normal ATTITUDE: Yes calm and Yes engaged ATTENTION/CONCENTRATION: Yes attention grossly intact Skin: COMMON NORMALS: no rashes or lesions noted GENERAL SKIN EXAM: no rashes or lesions noted Urinary Catheter Management: Grijalva: Cath Placed During This Visit: yes, but has since been removed by the nurse Reason for Continuing Indwelling Catheter: Decision to DC Catheter Urinary Catheter Date of Insertion: 09/18/23 Urinary Catheter Time of Insertion: 11:18 Date Urinary Catheter Removed: 09/18/23 Time Urinary Catheter Discontinued: 17:20 Discharge Data Studies Completed and Pending Completed Studies During Hospitalization Category Date Time Status XR knee RT 1-2V [id number] Urgent Exams 09/18/23 14:25 Completed Pending at discharge Category Date Time Status Basic Metabolic Panel AM LABS Lab 09/19/23 04:00 Ordered Complete Blood Count w/Auto AM LABS Lab 09/19/23 04:00 Ordered Radiology Impressions Knee X-Ray 09/18/23 14:25 IMPRESSION: Expected postoperative findings in the knee. Laboratory Results Urine Color Yellow (Yellow) 09/18/23 10:00 Urine Appearance Clear (CLEAR) 09/18/23 10:00 Urine pH 5 (5-7) 09/18/23 10:00 Ur Specific [place] 1.025 (1.005-1.030) 09/18/23 10:00 Urine Protein Neg (Negative) 09/18/23 10:00 Urine Glucose (UA) Norm (Normal) 09/18/23 10:00 Urine Ketones Negative (Negative) 09/18/23 10:00 Urine Blood Neg (Negative) 09/18/23 10:00 Urine Nitrate Negative (Negative) 09/18/23 10:00 Urine Bilirubin Neg (Negative) 09/18/23 10:00 Urine Urobilinogen Norm mg/dL (Negative) 09/18/23 10:00 Ur Leukocyte Esterase Negative (Negative) 09/18/23 10:00 Vitals Last Vital Signs Temp 98.2 F 09/18/23 17:40 Pulse 83 09/18/23 17:40 Resp 19 H 09/18/23 17:40 BP 121/68 09/18/23 17:40 Pulse Ox 95 09/18/23 17:40 O2 Del Method Room Air 09/18/23 16:40 O2 Flow Rate 6 09/18/23 14:40 Discharge Plan Discharge Patient Disposition: Home Health Service Condition: Stable Prescriptions: New hydrocodone-acetaminophen 10-325 mg tablet 1 tab PO Q4H PRN (Reason: pain) 7 Days Qty: 30 0RF Celebrex 200 mg capsule 200 mg PO DAILY 30 Days Qty: 30 0RF aspirin 325 mg Tablet,Delayed Release (Dr/Ec) 325 mg PO DAILY Qty: 0 0RF Continued isosorbide mononitrate 30 mg tablet extended release 24 hr 30 mg PO BID Qty: 90 3RF fluticasone propion-salmeterol [Advair Diskus] 100-50 mcg/dose blister with device 1 puff INHALATION BID albuterol sulfate [Ventolin HFA] 90 mcg/actuation HFA aerosol inhaler 2 puff INHALATION Q6H PRN (Reason: Shortness Of Breath) omega-3 fatty acids 500 mg capsule 500 mg PO BID pantoprazole [Protonix] 40 mg tablet,delayed release (DR/EC) 40 mg PO DAILY cyclobenzaprine 10 mg tablet 10 mg PO TID duloxetine [Cymbalta] 60 mg capsule,delayed release(DR/EC) 120 mg PO DAILY hydrochlorothiazide 12.5 mg tablet 25 mg PO DAILY Hold Instructions: Resume on 11/14/22. montelukast [Singulair] 10 mg tablet 10 mg PO DAILY cetirizine [Zyrtec] 10 mg tablet 10 mg PO DAILY nitroglycerin [Nitrostat] 0.4 mg tablet, sublingual 0.4 mg sublingual Q5M PRN (Reason: chest pain) Qty: 25 3RF Rx Instructions: do not exceed 3 doses per episode metoprolol tartrate 25 mg tablet 37.5 mg PO BID Qty: 90 6RF rosuvastatin 20 mg tablet 20 mg PO DAILY Qty: 30 0RF Rx Instructions: MUST have follow-up with new provider for further refills alprazolam 0.5 mg tablet 0.5 mg PO BEDTIME PRN (Reason: Anxiety) gabapentin 800 mg tablet 800 mg PO TID Discharge Orders: Discharge Order (Routine); Ordered 09/18/23 Ordered By: Shruthi León Referrals: Shruthi León MD [Physician] - 10/03/23 8:15 am Discharge Diet: Advance as tolerated and Usual diet Discharge Activity: Increase activity as tolerated, Limit activity as instructed, Use walker/crutches as instructed and As per PT/OT instructions Patient Instructions: Hydrocodone/Acetaminophen (By mouth), Celecoxib (By mouth), Total Knee Replacement (GEN), Joint Replacement Stoplight, Opioid Safety Activity Restrictions/Additional Instructions: Ice and elevation to right lower extremity. You may shower, but keep your clear plastic dressing in place. Do not soak your knee in water. Range of motion, gait training, and strengthening per physical therapy. Maintain clear plastic dressing with pad in the middle. Weightbearing as tolerated. Remove marvel wrap to operative leg tomorrow 09-19-23. Discharge Attestations Time Spent in Discharge Care*: greater than 30 min Specific Discharge Activities: educating patient, documenting/other paperwork and evaluating patient/reviewing data Quality Metrics Clinical Quality Measures [ No reported AMI, CVA or VTE this stay] Coding Level of Care Code Acute Code for Chg Fwd Diagnoses Osteoarthritis of right knee M17.11 Status post total right knee replacement not using cement Z96.651
--- NOTE | 2023-09-19 07:50 | PC.OT ---
OT EVALUATION ORDERS RECEIVED. PATIENT D/C BEFORE EVALUATION COULD BE COMPLETED.
--- NOTE | 2023-09-19 15:19 | PC.SOCIAL ---
Pt was discharged home prior Cm seeing pt. Pt had an order for HH. Job Hand tried to follow up with pt to discuss HH. Pt did not answer her phone. Job Hand tried calling pt's daughter, she did not answer as well. Germain, Charge nurse said pt was doing well prior d/c & wanted to go home. She had her other knee done before & was familiar with what all she needs to do.
--- NOTE | 2023-09-19 15:28 | PC.SOCIAL ---
Messaged Dr León Homemaker Companion sent a message to Dr León updating her that Cm has tried to reach out to pt & her daughter & they did not answer.
== END 2023-09-18 20:00 | disposition home health service (06) ==
LOC: MEDSURG 14:39
PROVIDERS: Admitting Provider Specialist; PCP Family Medicine; Visit Provider Specialist
PROC: 8E0Y0CZ Robotic Assisted Procedure of Lower Extremity, Open Approach (ICD-10-PCS; CPT 27447; principal; 2023-09-18 10:35)
DX: M17.11 Unilateral primary osteoarthritis, right knee (principal); Z96.642 Presence of left artificial hip joint; J44.9 Chronic obstructive pulmonary disease, unspecified; I10 Essential (primary) hypertension; E78.5 Hyperlipidemia, unspecified; K21.9 Gastro-esophageal reflux disease without esophagitis; M79.7 Fibromyalgia; E78.00 Pure hypercholesterolemia, unspecified
CPT/HCPCS: 20985; 27447; 51702; 73560; 81003; 97161; C1776; C9290; G0378; J0131; J0690; J1100; J2250; J2371; J2405; J2704; J2795; J3370; J3490; J7030

== ENCOUNTER → 2023-09-26 14:11 | Outpatient (BNVA) | payer BC, SELFPAY | PROVIDERS: PCP Family Medicine; Visit Provider Nurse Practitioner | DX: Z96.651 Presence of right artificial knee joint (principal); M17.11 Unilateral primary osteoarthritis, right knee | CPT/HCPCS: 73560; 73565 ==

== ENCOUNTER → 2023-10-03 08:03 | Outpatient (BNVA) | payer BC, SELFPAY | PROVIDERS: PCP Family Medicine; Visit Provider Nurse Practitioner | DX: Z96.651 Presence of right artificial knee joint (principal) | CPT/HCPCS: 73560; 73565 ==

== ENCOUNTER 2023-10-09 06:00 | Outpatient (RCR) | payer BC, SELFPAY | END 2023-10-18 23:59 | disposition home or self-care (01) | LOC: SPT 06:00 | PROVIDERS: Visit Provider Nurse Practitioner | DX: Z47.1 Aftercare following joint replacement surgery (principal); Z96.651 Presence of right artificial knee joint | CPT/HCPCS: 97110; 97161 ==

== ENCOUNTER 2023-10-19 06:00 | Outpatient (RCR) | payer BC, SELFPAY | END 2023-11-18 23:59 | disposition home or self-care (01) | LOC: SPT 06:00 | PROVIDERS: Visit Provider Nurse Practitioner | DX: Z47.1 Aftercare following joint replacement surgery (principal); Z96.651 Presence of right artificial knee joint | CPT/HCPCS: 97110 ==

== ENCOUNTER → 2023-10-31 08:00 | Outpatient (BNVA) | payer BC, SELFPAY | PROVIDERS: Visit Provider Nurse Practitioner | DX: Z96.651 Presence of right artificial knee joint (principal); M17.11 Unilateral primary osteoarthritis, right knee | CPT/HCPCS: 73560; 73565 ==

== ENCOUNTER → 2023-12-12 08:39 | Outpatient (BNVA) | payer BC, SELFPAY | PROVIDERS: PCP Family Medicine; Visit Provider Nurse Practitioner | DX: Z96.651 Presence of right artificial knee joint (principal); M17.11 Unilateral primary osteoarthritis, right knee | CPT/HCPCS: 73560; 73565 ==

== ENCOUNTER 2024-01-03 07:37 | Outpatient (CLI) | payer BC, SELFPAY ==
--- NOTE | 2024-01-03 07:45 | MR_ITS ---
WS: [id number] MRI LUMBAR SPINE NONCONTRAST TECHNIQUE: Sagittal T1, T2 and STIR imaging. Axial T1 and T2 imaging. CLINICAL INFORMATION: LOW BACK PAIN/LUMBAR SPONDYLOSIS COMPARISON: None. FINDINGS: Central disc protrusion in the cervical spine at C6-C7 with slight indentation of the cervical cord. Additional disc protrusions in the mid and lower thoracic spine with slight indentation on the thorac ic cord. This can be further evaluated with cervical and thoracic spine MRI. Prominent disc protrusio n at T9-T10, T10-11 and T12-L1 with mild to moderate central canal stenosis similar to previous. L1-L2: Central disc protrusion. Narrowing of the LEFT subarticular recess. Mild central canal stenosi s. Moderate LEFT foraminal narrowing. Moderate facet arthropathy. L2-L3: Disc bulging with impingement LEFT subarticular recess. Moderate central canal stenosis. Moder ate facet arthropathy. Moderate LEFT bony foraminal narrowing. L3-L4: RIGHT paracentral disc protrusion. Moderate central canal stenosis. Impingement RIGHT subartic ular recess. Moderate RIGHT and mild LEFT foraminal narrowing. Slightly progressed central canal sten osis at this level. L4-L5: Mild disc bulging with moderate central canal stenosis. Moderate to advanced facet arthropathy with ligamentum flavum hypertrophy. Moderate RIGHT and mild LEFT foraminal narrowing. L5-S1: Mild disc bulging with osteophytic ridging. Moderate bilateral bony foraminal narrowing LEFT g reater than RIGHT. Visualized pelvic bony structures: Normal. Paravertebral soft tissues: Normal. Bilateral renal cysts. Adrenal glands are normal. IMPRESSION: 1. Advanced multilevel degenerative disc disease similar to previous. 2. Moderate central canal stenosis L3-4 progressed compared to previous. No other significant change s compared to 10/19/2020. 3. Mild central canal stenosis L1-2. Moderate central canal stenosis L2-3 with impingement on the LE FT subarticular recess. Mild central canal stenosis L4-5. 4. Multilevel bony foraminal narrowing similar to previous worse at LEFT L1-2, LEFT L2-3, RIGHT L3-4 and bilateral L5-S1. 5. Moderate to advanced facet arthropathy L4-L5 and L5-S1.
== END 2024-01-03 07:38 | disposition home or self-care (01) ==
LOC: RAD 07:37
PROVIDERS: PCP Family Medicine; Visit Provider Registered Nurse
DX: M47.817 Spondylosis without myelopathy or radiculopathy, lumbosacral region (principal); M51.37 Other intervertebral disc degeneration, lumbosacral region; M48.07 Spinal stenosis, lumbosacral region
CPT/HCPCS: 72148

== ENCOUNTER 2024-05-02 06:57 | Outpatient (CLI) | payer BC, SELFPAY ==
--- NOTE | 2024-05-02 07:04 | MR_ITS ---
WS: [id number] MRI THORACIC SPINE noncontrast HISTORY: SCOLIOSIS COMPARISON: None available. TECHNIQUE: Multiplanar sequences are performed in sagittal and axial planes. Mild increase in the thoracic kyphosis with mild curvature and scoliosis. No acute fracture or marrow edema. Disc spaces are all moderately narrowed and desiccated with endplate osteophytes. Signal with in the cord is normal. C6-7: Central disc osteophyte contacting and deforming the ventral thecal sac. T1-2: Mild disc bulging and facet arthritis. Mild bilateral foraminal stenosis. T2-3: Central disc protrusion effacing ventral CSF. Mild central and bilateral foraminal stenosis. T3-4: Central disc protrusion and vertebral body osteophytes. Mild central and foraminal stenosis. T4-5: Small RIGHT paracentral disc protrusion deforming the RIGHT lateral thecal sac. Minimal foramin al narrowing. T5-6: Moderate LEFT paracentral disc protrusion superimposed on disc bulging and osteophytosis. Conta ct on the LEFT lateral thecal sac. Mild foraminal narrowing. T6-7: Mild bilateral facet arthritis. T7-8: Mild foraminal narrowing. T8-9: Mild facet arthritis and foraminal narrowing. T9-10: Large central disc protrusion causing significant deformity of the thecal sac and thoracic cor d. Central and subarticular recess stenosis with moderate to severe RIGHT foraminal and moderate LEFT foraminal stenosis. T10-11: Bilobed disc protrusions, paracentral with contact and deformity of the thecal sac and cord. Moderate central with severe bilateral foraminal stenosis and facet joint arthritis. T11-12: Mild annular disc bulging with a shallow RIGHT paracentral disc protrusion. Facet joint arthr itis with moderate foraminal narrowing. T12-L1: Small central disc protrusion and facet arthritis. Mild central and bilateral foraminal steno sis. Visualized cardiac silhouette appears mildly enlarged. LEFT renal cyst 2.9 cm. MR/MR thoracic spin wo con* [id number] IMPRESSION: 1. Moderate diffuse spondylosis throughout the thoracic spine. Multilevel area s of central and foraminal stenosis and disc protrusions. 2. T9-10: Large central disc protrusion. Central and subarticular recess steno sis with moderate to severe RIGHT foraminal and moderate LEFT foraminal stenosi s. Disc causing significant deformity of the thoracic cord. 3. T10-11: Disc protrusions and facet disease resulting in moderate central wi th severe bilateral foraminal stenosis. 4. T11-12: Shallow RIGHT paracentral disc protrusion with moderate foraminal s tenosis. 5. T5-6: Moderate size LEFT paracentral disc protrusion contacting the LEFT la teral thecal sac. Mild foraminal stenosis. 6. T1-2 through T3-4, components of central and bilateral foraminal stenosis a s above. 7. T4-5: Small RIGHT paracentral disc protrusion deforming the RIGHT lateral t hecal sac. 8. T12-L1: Mild central and bilateral foraminal stenosis.
== END 2024-05-02 06:58 | disposition home or self-care (01) ==
PROVIDERS: PCP Family Medicine; Visit Provider Nurse Practitioner
DX: M41.9 Scoliosis, unspecified (principal); M47.814 Spondylosis without myelopathy or radiculopathy, thoracic region; M51.24 Other intervertebral disc displacement, thoracic region; M99.62 Osseous and subluxation stenosis of intervertebral foramina of thoracic region; M99.63 Osseous and subluxation stenosis of intervertebral foramina of lumbar region; M25.78 Osteophyte, vertebrae; M46.94 Unspecified inflammatory spondylopathy, thoracic region
CPT/HCPCS: 72146

== ENCOUNTER → 2024-08-25 15:07 | Outpatient (BNVA) | payer BC, SELFPAY | PROVIDERS: PCP Family Medicine; Visit Provider Nurse Practitioner | DX: Z96.653 Presence of artificial knee joint, bilateral (principal) | CPT/HCPCS: 73560; 73565 ==

== ENCOUNTER 2024-10-02 17:53 | Observation (INO) | payer BC, SELFPAY ==
[2024-10-02] VITALS (11 sets, daily range): BP systolic 109–149; BP diastolic 67–85; PULSE 80–91; RESP 14–23; O2SAT 93–99
--- NOTE | 2024-10-02 18:10 | CTR_ITS ---
PROCEDURE INFORMATION: Exam: CT Cervical Spine Without Contrast Exam date and time: 10/02/2024 7:51 PM Age: 63 years old Clinical indication: Neck pain TECHNIQUE: Imaging protocol: Computed tomography of the cervical spine without contrast. Radiation optimization: All CT scans at this facility use at least one of these dose optimization techniques: automated exposure control; mA and/or kV adjustment per patient size (includes targeted exams where dose is matched to clinical indication); or iterative reconstruction. COMPARISON: CT head wo con* [id number] 10/02/2024 6:14 PM RADIATION DOSE METRICS: Total DLP (mGy-cm): 245.05 FINDINGS: Bones/joints: Moderate-severe multilevel uncovertebral hypertrophy and facet arthrosis. No evidence of acute fracture or subluxation of the cervical spine. The craniocervical junction including the atlantoaxial and atlantooccipital articulations are intact. C2-C3: Uncovertebral hypertrophy results in mild right-sided foraminal stenosis. No central stenosis. C3-C4: Vertebral hypertrophy and severe left-sided facet arthrosis results in moderate left-sided foraminal stenosis. No central stenosis. C4-C5: Uncovertebral hypertrophy and severe left-sided facet arthrosis results in moderate-severe left-sided foraminal stenosis. No central stenosis. C5-C6: Uncovertebral hypertrophy and severe left-sided facet arthrosis results in moderate-severe left-sided and mild right-sided foraminal stenosis. Posterior disc protrusion results in moderate central stenosis. C6-C7: Uncovertebral hypertrophy results in moderate bilateral foraminal stenosis. Posterior disc osteophyte complex results in moderate central stenosis with possible contacting/indenting of the cord. C7-T1: Uncovertebral hypertrophy results in mild right-sided foraminal stenosis. No central stenosis. Lungs: The visualized lung apices are clear. Soft tissues: No gross soft tissue abnormality. No significant prevertebral edema. No evidence of fluid collection or hematoma. CT/CT cervical spin wo con* [id number] IMPRESSION: 1. No evidence of fracture or subluxation of the cervical spine. 2. Possible contacting/indenting of the cord at C6-C7. Consider correlation with follow-up outpatient MRI to evaluate for neural impingement. 3. Moderate-severe left-sided foraminal stenosis at C4-C5 and C5-C6.
--- NOTE | 2024-10-02 18:10 | CTR_ITS ---
PROCEDURE INFORMATION: Exam: CT Head Without Contrast Exam date and time: 10/02/2024 6:14 PM Age: 63 years old Clinical indication: Stroke-like symptoms; Other: Collapsed, head injury; Additional info: Fall, head injury TECHNIQUE: Imaging protocol: Computed tomography of the head without contrast. Radiation optimization: All CT scans at this facility use at least one of these dose optimization techniques: automated exposure control; mA and/or kV adjustment per patient size (includes targeted exams where dose is matched to clinical indication); or iterative reconstruction. Other technique: STROKE PROTOCOL was implemented. COMPARISON: CT head wo con* [id number] 11/11/2022 12:05 PM RADIATION DOSE METRICS: Total DLP (mGy-cm): 1066.38 FINDINGS: Brain: No evidence of intra-axial or extra-axial hemorrhage. No mass effect or midline shift. Arshad-white differentiation is maintained. Basilar cisterns are patent. Cerebral ventricles: No hydrocephalus. Paranasal sinuses: The visualized paranasal sinuses are well aerated. Mastoid air cells: The visualized mastoids and middle ears are clear. Bones: Calvarium is intact. No evidence of acute fracture. Soft tissues: No gross soft tissue abnormality. CT/CT head wo con* [id number] IMPRESSION: 1. No acute intracranial abnormality. ASSESSMENT: ASPECTS ([place] Stroke Program Early CT Score) is 10.
--- NOTE | 2024-10-02 18:11 | CTR_ITS ---
PROCEDURE INFORMATION: Exam: CTA Head With Contrast, Arteriography Exam date and time: 10/02/2024 7:58 PM Age: 63 years old Clinical indication: Dizziness and giddiness and weakness; Additional info: Possible stroke TECHNIQUE: Imaging protocol: Computed tomographic angiography of the head with contrast. Exam focused on the arteries. 3D rendering (Not supervised by radiologist): MIP and/or 3D reconstructed images were created by the technologist. Radiation optimization: All CT scans at this facility use at least one of these dose optimization techniques: automated exposure control; mA and/or kV adjustment per patient size (includes targeted exams where dose is matched to clinical indication); or iterative reconstruction. Contrast material: OMNI 350; Contrast volume: 100 ml; Contrast route: INTRAVENOUS (IV); COMPARISON: CT head wo con* [id number] 10/02/2024 6:14 PM RADIATION DOSE METRICS: Total DLP (mGy-cm): 490.62 FINDINGS: ANTERIOR CIRCULATION: Right internal carotid artery: Patent. Right middle cerebral artery: Patent. Right anterior cerebral artery: Patent. Left internal carotid artery: Patent. Left middle cerebral artery: Patent. Left anterior cerebral artery: Patent. POSTERIOR CIRCULATION: Right vertebral artery: Patent. Left vertebral artery: Patent. Basilar artery: Patent. Right posterior cerebral artery: Patent. Left posterior cerebral artery: Patent. PROCEDURE INFORMATION: Exam: CTA Neck With Contrast Exam date and time: 10/02/2024 7:58 PM Age: 63 years old Clinical indication: Dizziness and giddiness and weakness; Additional info: Possible stroke TECHNIQUE: Imaging protocol: Computed tomographic angiography of the neck with contrast. Exam focused on the cervical segments of the vasculature. 3D rendering (Not supervised by radiologist): MIP and/or 3D reconstructed images were created by the technologist. Radiation optimization: All CT scans at this facility use at least one of these dose optimization techniques: automated exposure control; mA and/or kV adjustment per patient size (includes targeted exams where dose is matched to clinical indication); or iterative reconstruction. Contrast material: OMNI 350; Contrast volume: 100 ml; Contrast route: INTRAVENOUS (IV); COMPARISON: CT cervical spin wo con* [id number] 10/02/2024 7:51 PM RADIATION DOSE METRICS: Total DLP (mGy-cm): 490.62 FINDINGS: Right common carotid artery: Patent. No evidence of hemodynamically significant stenosis. Right internal carotid artery: Patent. Atherosclerotic plaque without evidence of hemodynamically significant stenosis. There is medialization of the right ICA into the retropharyngeal space. Right external carotid artery: Patent. Left common carotid artery: Patent. No evidence of hemodynamically significant stenosis. Left internal carotid artery: Patent. Atherosclerotic plaque without evidence of hemodynamically significant stenosis. There is medialization of the left ICA into the retropharyngeal space. Left external carotid artery: Patent. Right vertebral artery: Patent. Left vertebral artery: Patent. Soft tissues: No gross soft tissue abnormality. No evidence of fluid collection or hematoma. Bones/joints: No evidence of acute fracture or subluxation of the cervical spine. Severe left-sided foraminal stenosis at C4-C5 and C5-C6. CT/CT angio headneck* [id number] IMPRESSION: 1. No evidence of large vessel occlusion or acute thrombosis in the head. IMPRESSION: 1. No evidence of acute thrombosis or hemodynamically significant stenosis in the neck. 2. Severe left-sided foraminal stenosis at C4-C5 and C5-C6. Consider correlation with follow-up outpatient MRI to evaluate for neural impingement. REFERENCES: NASCET CRITERIA. The degree of stenosis in the cervical segment of the internal carotid artery is based on NASCET criteria. Normal is no stenosis. Mild is less than 50% stenosis. Moderate is 50-69% stenosis. Severe is 70% to 99% stenosis. Total occlusion is no detectable patent lumen.
--- NOTE | 2024-10-02 18:11 | XRR_ITS ---
PROCEDURE INFORMATION: Exam: XR Chest Exam date and time: 10/02/2024 6:29 PM Age: 63 years old Clinical indication: Other: Stroke like symptoms; Additional info: Weakness TECHNIQUE: Imaging protocol: Radiologic exam of the chest. Views: 1 view. COMPARISON: CR XR chest 1V portable [id number] 11/11/2022 12:12 PM FINDINGS: Lungs: No focal consolidation. Left basilar hazy opacities compatible with atelectasis or developing infection in the proper clinical setting. Pleural spaces: No evidence of pneumothorax. No evidence of pleural effusion. Heart/Mediastinum: Cardiomediastinal silhouette is within normal limits. Bones/joints: No evidence of acute osseous abnormality. XR/XR chest 1V portable [id number] IMPRESSION: 1. Left basilar hazy opacities compatible with atelectasis or developing infection in the proper clinical setting.
--- NOTE | 2024-10-02 18:12 | ECG_ITS ---
[facility] Test Date: 2024-10-02 Pat Name: Jennifer Wilson Department: Room: Gender: Female Dry Wall Nailer: : 1960 Requested By: Marisol Chacon Order Number: [id number] Ying MD: Kay Bailey M.D. Measurements Intervals [place] Rate: 83 P: 60 CT: 143 QRS: 77 QRSD: 82 T: 70 QT: 365 QTc: 431 Interpretive Statements SINUS RHYTHM NONSPECIFIC T-WAVE ABNORMALITY Compared to ECG 11/11/2022 16:05:39 T-wave abnormality now present Electronically Signed On 10-02-2024 21:23:23 VENEER SAMPLE MAKER by Kay Bailey M.D. [email or web address]
[2024-10-02 18:13] LABS: Glucose Point of Care 177 mg/dL (70-110)
[2024-10-02 18:20] LABS: Basophils # 0.1 10^3/uL (0.0-0.1); Basophils % 0.8 %; Eosinophils # 0.3 10^3/uL (0.0-0.8); Hematocrit 39.2 % (36-47); Lymphocytes # 3.6 10^3/uL (0.8-4.8); Lymphocytes % 37.5 %; Mean Corpuscular HGB Conc 32.4 g/dL (30-55); Mean Corpuscular Hemoglobin 29.1 pg (27-33); Mean Corpuscular Volume 89.9 fl (85-98); Mean Platelet Volume 9.3 fL (7.4-10.4); Monocytes # 0.6 10^3/uL (0.2-0.9); Monocytes % 6.6 %; Neutrophils # 5.04 10^3/uL (1.8-7.7); Neutrophils % 51.9 %; Nucleated Red Blood Cells % 0 %; Platelet Count 264 10^3/cmm (157-399); Red Blood Count 4.36 10^6/uL (3.85-5.65); Red Cell Distribution Width 14.6 % (12.1-15.1); White Blood Count 9.71 10^3/uL (3.29-11.43)
[2024-10-02] MEDS: tenecteplase 50mg Kit (STROKE) 20 MG IVP (18:26)
--- NOTE | 2024-10-02 18:26 | W.ED.NECK ---
HPI - Neck Pain/Injury General: Chief Complaint: Neck Pain/Injury Stated Complaint: collapsed and pain in running up neck Time Seen by Provider: 10/02/24 18:10 History of Present Illness: 63-year-old female with a history of chronic neck pain, UTIs, COPD, hypertension, and hyperlipidemia who presents to the emergency room with neck pain. History of bit difficult to tease out but sounds like she was coming to the emergency room because of severe neck pain and somewhere in the process she became very weak and almost collapsed. She says she has generalized weakness. I do not see any focal deficits. Apparently when she tries to stand she seems off balance. A stroke was called in the waiting room and Dr. Kline saw the patient almost immediately upon arrival and believes she may be having a posterior stroke. Patient also is complaining of right upper quadrant pain. She is complaining of headache. At 1 point while she was here family says her speech was slurred. She on my exam had no motor deficits no facial droop and no slurred speech. She was completely alert. Related Data Home Medications Medication Instructions Recorded Confirmed albuterol sulfate 90 mcg/actuation 2 puff inhalation Q6H PRN 02/17/20 08/25/24 aerosol inhaler (Ventolin HFA) Shortness Of Breath cyclobenzaprine 10 mg tablet 10 mg PO TID 02/17/20 08/25/24 fluticasone 100 mcg-salmeterol 50 1 puff inhalation BID 02/17/20 08/25/24 mcg/dose blistr powdr for inhalation (Advair Diskus) omega-3 fatty acids 500 mg capsule 500 mg PO BID 02/17/20 08/25/24 pantoprazole 40 mg tablet,delayed 40 mg PO DAILY 02/17/20 08/25/24 release (Protonix) cetirizine 10 mg tablet (Zyrtec) 10 mg PO DAILY 05/11/21 08/25/24 duloxetine 60 mg capsule,delayed 120 mg PO DAILY 05/11/21 08/25/24 release (Cymbalta) montelukast 10 mg tablet 10 mg PO DAILY 05/11/21 08/25/24 (Singulair) hydrochlorothiazide 12.5 mg tablet 25 mg PO DAILY 11/25/21 08/25/24 alprazolam 0.5 mg tablet 0.5 mg PO BEDTIME PRN Anxiety 11/11/22 08/25/24 gabapentin 800 mg tablet 800 mg PO TID 11/11/22 08/25/24 Previous Rx's Medication Instructions Recorded nitroglycerin 0.4 mg sublingual 0.4 mg sublingual Q5M PRN chest 05/11/21 tablet (Nitrostat) pain #25 tabs isosorbide mononitrate 30 mg 30 mg PO BID #90 tabs 11/25/21 tablet,extended release 24 hr metoprolol tartrate 25 mg tablet 37.5 mg (1.5 x 25 mg) PO BID #90 11/30/21 tabs rosuvastatin 20 mg tablet 20 mg PO DAILY #30 tabs 08/29/22 aspirin 325 mg tablet,delayed 325 mg PO DAILY #0 tabs 09/18/23 release celecoxib 100 mg capsule (Celebrex) 100 mg PO BID #120 caps 12/03/23 Allergies Allergy/AdvReac Type Severity Reaction Status Date / Time morphine Allergy Mild Rash/itchin Verified 08/25/24 15:19 g oxycodone [From Percocet] Allergy Mild Hives Verified 08/25/24 15:19 Review of Systems Narrative: Constitutional symptoms: Negative except as documented in HPI. Skin symptoms: Negative except as documented in HPI. Eye symptoms: Negative except as documented in HPI. ENMT symptoms: Negative except as documented in HPI. Respiratory symptoms: Negative except as documented in HPI. Cardiovascular symptoms: Negative except as documented in HPI. Gastrointestinal symptoms: Negative except as documented in HPI. Genitourinary symptoms: Negative except as documented in HPI. Musculoskeletal symptoms: Negative except as documented in HPI. Neurologic symptoms: Negative except as documented in HPI. Psychiatric symptoms: Negative except as documented in HPI. Endocrine symptoms: Negative except as documented in HPI. 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 Lumbar stenosis with neurogenic claudication Bilateral primary osteoarthritis of knee Skin infection of right knee Moderate pulmonary hypertension Tobacco use UTI (urinary tract infection) COPD (chronic obstructive pulmonary disease) Pneumonia Altered mental status Acute exacerbation of chronic obstructive airways disease Aspiration pneumonia HTN (hypertension) with goal to be determined Displacement of lumbar disc with radiculopathy Anxiety disorder COPD (chronic obstructive pulmonary disease) Depression Hypercholesterolemia Fibromyalgia Surgical History H/O section H/O: hysterectomy History of carpal tunnel surgery Family History Grandfather CAD (coronary artery disease) Grandmother CAD (coronary artery disease) Diabetes Hypertension Brother Diabetes Father Hypertension Mother Hypertension Social History Smoking and tobacco/nicotine status: current every day tobacco/nicotine user Alcohol intake: never Substance/Drug Use: never Lives independently: Yes Household members: spouse Marital status: Current occupational status: employed Current occupation: [employer] at [employer] Physical Exam Narrative: EXAM NARRATIVE: General: Alert, no acute distress. Skin: Warm, dry. Head: Normocephalic, atraumatic. Neck: Supple, trachea midline. Eye: Extraocular movements are intact. Ears, nose, mouth and throat: mucosa moist. Cardiovascular: Regular, Normal peripheral perfusion. Respiratory: Lungs are clear to auscultation, respirations are non-labored, breath sounds are equal, Symmetrical chest wall expansion. Gastrointestinal: Soft, Nontender, Non distended Musculoskeletal: Normal ROM, no deformity. Neurological: Alert and oriented, No focal neurological deficit observed. Psychiatric: Cooperative, appropriate mood & affect. Course Vital Signs: Vital signs: Vital Signs Pulse Rate 89 10/02/24 21:54 Respiratory Rate 18 10/02/24 21:54 Blood Pressure 109/68 10/02/24 21:54 Pulse Oximetry 93 10/02/24 21:54 MDM - Neck Pain/Injury Medical Decision Making Medical decision making: Differential diagnosis for patient with focal neurologic deficit(s) includes but not limited to and based on the above HPI, review of systems and physical exam: ischemic stroke, hemorrhagic stroke and embolic stroke secondary to atrial fibrillation), TIA, Berry's palsey, metabolic encephalopathy with previous stroke. Orders placed to evaluate differential diagnosis based on the above differential, HPI and physical exam Consultation: Dr. Kline with neurology so patient upon arrival. She recommends TNKase which was given per protocol. This NIH scale was done at the time of my exam upon patient arrival. NIH Stroke Scale/Score (NIHSS) from June [email or web address] on 10/02/2024 All calculations should be rechecked by clinician prior to use RESULT SUMMARY: 0 points NIH Stroke Scale INPUTS: 1A: Level of consciousness ?> 0 = Alert; keenly responsive 1B: Ask month and age ?> 0 = Both questions right 1C: 'Blink eyes' & 'squeeze hands' ?> 0 = Performs both tasks 2: Horizontal extraocular movements ?> 0 = Normal 3: Visual leon ?> 0 = No visual loss 4: Facial palsy ?> 0 = Normal symmetry 5A: Left arm motor drift ?> 0 = No drift for 10 seconds 5B: Right arm motor drift ?> 0 = No drift for 10 seconds 6A: Left leg motor drift ?> 0 = No drift for 5 seconds 6B: Right leg motor drift ?> 0 = No drift for 5 seconds 7: Limb Ataxia ?> 0 = No ataxia 8: Sensation ?> 0 = Normal; no sensory loss 9: Language/aphasia ?> 0 = Normal; no aphasia 10: Dysarthria ?> 0 = Normal 11: Extinction/inattention ?> 0 = No abnormality CT head: No acute intracranial process. no intracranial hemorrhage, no evidence of infarct. no evidence of acute fracture.This was reviewed and interpreted by myself the ER physician. CTA of the head and neck: No obvious stenosis or occlusions are identified. No mass. This was reviewed and interpreted by myself the emergency room physician. I also reviewed the radiology report. There is some degenerative changes with left foraminal stenosis at C4-C5 and C5-C6. Ultrasound of the gallbladder: I ordered this because she was complaining of right upper quadrant pain. This is negative for cholecystitis or cholelithiasis. This was reviewed and interpreted by myself the emergency room physician. I also reviewed the radiology report. Lab Review: Laboratory results were reviewed and interpreted by myself the emergency room physician. No leukocytosis. No anemia. No renal failure. Patient does have a urinary tract infection. I reviewed the patient's medical record. Reexamination: Patient continues to ride in the bed in pain. She is complaining of headache. Neck pain. Abdominal pain. On my reexamination she has not had any slurred speech when I talk to her but family reports she did for a minute. Consultation: I spoke with Dr. Oliva who is on-call for the hospitalist service who agrees to admission to the ICU. Assessment and plan: Possible stroke Neck pain Abdominal pain Headache ?TNKase given per Dr. Kline -I discussed the patient with the hospitalist on-call who is admitting the patient. - Discussed findings and plan with patient. Answered any questions. - All laboratory values were reviewed and interpreted personally by myself, the ER physician - All imaging was reviewed and interpreted personally by myself, the ER physician. - Evaluation and treatment of this problem were appropriate in the emergency setting Lab Data 10/02/24 18:08 10/02/24 18:08 Radiology Impressions Cervical Spine CT 10/02/24 18:10 IMPRESSION: 1. No evidence of fracture or subluxation of the cervical spine. 2. Possible contacting/indenting of the cord at C6-C7. Consider correlation with follow-up outpatient MRI to evaluate for neural impingement. 3. Moderate-severe left-sided foraminal stenosis at C4-C5 and C5-C6. Head CT 10/02/24 18:10 IMPRESSION: 1. No acute intracranial abnormality. ASSESSMENT: ASPECTS ([place] Stroke Program Early CT Score) is 10. Chest X-Ray 10/02/24 18:11 IMPRESSION: 1. Left basilar hazy opacities compatible with atelectasis or developing infection in the proper clinical setting. Head/Neck CTA 10/02/24 18:11 IMPRESSION: 1. No evidence of large vessel occlusion or acute thrombosis in the head. IMPRESSION: 1. No evidence of acute thrombosis or hemodynamically significant stenosis in the neck. 2. Severe left-sided foraminal stenosis at C4-C5 and C5-C6. Consider correlation with follow-up outpatient MRI to evaluate for neural impingement. REFERENCES: NASCET CRITERIA. The degree of stenosis in the cervical segment of the internal carotid artery is based on NASCET criteria. Normal is no stenosis. Mild is less than 50% stenosis. Moderate is 50-69% stenosis. Severe is 70% to 99% stenosis. Total occlusion is no detectable patent lumen. Gallbladder Ultrasound 10/02/24 18:57 IMPRESSION: 1. No cholelithiasis or sonographic evidence of acute cholecystitis. Laboratory Results WBC 9.71 10^3/uL (3.29-11.43) 10/02/24 18:08 RBC 4.36 10^6/uL (3.85-5.65) 10/02/24 18:08 Hgb 12.70 g/dL (11.27-16.99) 10/02/24 18:08 Hct 39.2 % (36-47) 10/02/24 18:08 MCV 89.9 fl (85-98) 10/02/24 18:08 MCH 29.1 pg (27-33) 10/02/24 18:08 MCHC 32.4 g/dL (30-55) 10/02/24 18:08 RDW 14.6 % (12.1-15.1) 10/02/24 18:08 Plt Count 264 10^3/cmm (157-399) 10/02/24 18:08 MPV 9.3 fL (7.4-10.4) 10/02/24 18:08 Neut % (Auto) 51.9 % 10/02/24 18:08 Lymph % (Auto) 37.5 % 10/02/24 18:08 [place] % (Auto) 6.6 % 10/02/24 18:08 Eos % (Auto) 3.0 % 10/02/24 18:08 Baso % (Auto) 0.8 % 10/02/24 18:08 Neut # (Auto) 5.04 10^3/uL (1.8-7.7) 10/02/24 18:08 Lymph # (Auto) 3.6 10^3/uL (0.8-4.8) 10/02/24 18:08 [place] # (Auto) 0.6 10^3/uL (0.2-0.9) 10/02/24 18:08 Eos # (Auto) 0.3 10^3/uL (0.0-0.8) 10/02/24 18:08 Baso # (Auto) 0.1 10^3/uL (0.0-0.1) 10/02/24 18:08 Nucleated RBC % (auto) 0 % 10/02/24 18:08 Nucleated RBCs # 0.0 /100WBC 10/02/24 18:08 Sodium 139 mmol/L (136-145) 10/02/24 18:08 Potassium 3.5 mmol/L (3.5-5.1) 10/02/24 18:08 Chloride 100 mmol/L (98-107) 10/02/24 18:08 Carbon Dioxide 24 mmol/L (22-29) 10/02/24 18:08 Anion Gap 18.5 (5-19) 10/02/24 18:08 BUN 19 mg/dL (8-23) 10/02/24 18:08 Creatinine 0.9 mg/dL (0.5-0.9) 10/02/24 18:08 GFR Calculation 63.4 mL/min (90-130) L 10/02/24 18:08 Glucose 156 mg/dL (65-115) H 10/02/24 18:08 POC Glucose 177 mg/dL (70-110) H 10/02/24 18:10 Calculated Osmolality 293 mOsm/kg (285-295) 10/02/24 18:08 Lactic Acid 2.8 mmol/L (0.5-2.2) H 10/02/24 18:08 Lactic Acid (Sepsis) 1.2 mmol/L (0.5-2.2) 10/02/24 20:42 Calcium 9.0 mg/dL (8.5-10.5) 10/02/24 18:08 Total Bilirubin 0.2 mg/dL (0.15-1.2) 10/02/24 18:08 AST 21 U/L (0-32) 10/02/24 18:08 ALT 20 U/L (0-33) 10/02/24 18:08 Alkaline Phosphatase 98 U/L (35-105) 10/02/24 18:08 Troponin T Baseline 8 ng/L (0-10) 10/02/24 18:08 Troponin T 120 Minute 8.32 ng/L (0-10) 10/02/24 20:42 Delta Troponin T 0.32 ABS# (0-10) 10/02/24 20:42 Total Protein 6.0 g/dL (6.6-8.7) L 10/02/24 18:08 Albumin 4.4 g/dL (3.5-5.2) 10/02/24 18:08 Globulin 1.6 g/dL (1.3-4.6) 10/02/24 18:08 Urine Color Yellow (Yellow) 10/02/24 18:58 Urine Appearance Clear (CLEAR) 10/02/24 18:58 Urine pH 6.0 (5-7) 10/02/24 18:58 Ur Specific [place] 1.028 (1.005-1.030) 10/02/24 18:58 Urine Protein Negative (Negative) 10/02/24 18:58 Urine Glucose (UA) Negative (Normal) 10/02/24 18:58 Urine Ketones Negative (Negative) 10/02/24 18:58 Urine Blood Negative (Negative) 10/02/24 18:58 Urine Nitrate Negative (Negative) 10/02/24 18:58 Urine Bilirubin Negative (Negative) 10/02/24 18:58 Urine Urobilinogen 1.0 mg/dL (Negative) 10/02/24 18:58 Ur Leukocyte Esterase 1+ (Negative) A 10/02/24 18:58 Urine RBC 3-5 /hpf (0-2) 10/02/24 18:58 Urine WBC 11-20 /hpf (0-5) H 10/02/24 18:58 Ur Squamous Epith Cells 0-5 /hpf (0-5) 10/02/24 18:58 Amorphous Sediment Not Reportable 10/02/24 18:58 Urine Bacteria None seen /hpf (NONE) 10/02/24 18:58 Hyaline Casts 2.05 /lpf 10/02/24 18:58 All radiology interpretation(s) finalized by discharge Discharge Plan Discharge Patient Disposition: Admitted As Inpatient Admit Provider: Merle Oliva Clinical Impression: Acute CVA (cerebrovascular accident), Neck pain, Headache, Right upper quadrant abdominal pain Condition: Stable Coding Level of Care Code ED Spooler Operator for Riri Barnes
[2024-10-02 18:52] LABS: Lactic Sepsis W/Reflex 2.8 mmol/L (0.5-2.2)
[2024-10-02 18:53] LABS: Troponin(5th) Baseline 8 ng/L (0-10)
--- NOTE | 2024-10-02 18:57 | USR_ITS ---
PROCEDURE INFORMATION: Exam: US Abdomen, Limited; Right Upper Quadrant Exam date and time: 10/02/2024 6:26 PM Age: 63 years old Clinical indication: Abdominal pain; Epigastric; Additional info: Right upper quadrant pain, concern for cholecystitis TECHNIQUE: Imaging protocol: Real time ultrasound of the abdomen with image documentation. Limited exam focused on the right upper quadrant. COMPARISON: US renal BI* [id number] 10/31/2019 4:00 PM FINDINGS: Liver: Visualized hepatic parenchyma is echogenic. The liver contour is grossly smooth. Gallbladder: No evidence of cholelithiasis. No significant wall thickening or edema to suggest cholecystitis.The front desk auxiliary reports a negative sonographic Escalante's sign. Biliary ducts: The CBD is nondilated, measuring 3 mm. No sonographic evidence of intraductal stone. Pancreas: The pancreas is partially obscured bowel gas. Visualized portions are grossly unremarkable. Right kidney: The right kidney is normal in echotexture and measures 9.8 cm in length. No evidence of hydronephrosis. 2.3 cm right upper pole renal cyst. US/US gall bladder [id number] IMPRESSION: 1. No cholelithiasis or sonographic evidence of acute cholecystitis.
[2024-10-02 18:58] LABS: Alanine Aminotransferase 20 U/L (0-33); Albumin Level 4.4 g/dL (3.5-5.2); Alkaline Phosphatase 98 U/L (35-105); Anion Gap 18.5 (5-19); Aspartate Amino Transferase 21 U/L (0-32); Blood Urea Nitrogen 19 mg/dL (8-23); Carbon Dioxide 24 mmol/L (22-29); Chloride 100 mmol/L (98-107); Globulin 1.6 g/dL (1.3-4.6); Glomerular Filtration Rate 63.4 mL/min (90-130); Glucose 156 mg/dL (65-115); Osmolality Calculated 293 mOsm/kg (285-295); Potassium 3.5 mmol/L (3.5-5.1); Sodium 139 mmol/L (136-145); Total Bilirubin 0.2 mg/dL (0.15-1.2)
[2024-10-02 19:06] LABS: Bilirubin Urine Negative (Negative); Blood Urine Negative (Negative); Glucose Urine UA Negative (Normal); Ketones Urine Negative (Negative); Leukocyte Esterase Urine 1+ (Negative); Nitrate Urine Negative (Negative); Protein Urine Negative (Negative); Specific Gravity, Urine 1.028 (1.005-1.030); Urine Appearance Clear (CLEAR); Urine Color Yellow (Yellow)
[2024-10-02 19:08] LABS: Bacteria Urine None Seen /hpf; Hyaline Casts Urine 2.05 /lpf; Squamous Epithelial Cell Urine 0-5 /hpf (0-5)
[2024-10-02 19:12] LABS: Add Urine Culture? No
[2024-10-02] MEDS: cefTRIAXone 1,000 mg SDV 1000 MG IVP (19:29)
[2024-10-02] MEDS: HYDROmorphone 1 mg/mL INJ 1 mL IVP (19:29)
[2024-10-02] MEDS: ondansetron 2 mg/ML SDV 2 mL 4 MG IVP (19:29)
[2024-10-02] MEDS: iohexol 350 mg/mL 500 mL Btl (per mL) IV (20:01)
[2024-10-02 20:03] LABS: Reflex Lactate Order REFLEX LACTIC ORDERD
--- NOTE | 2024-10-02 20:31 | ECG_ITS ---
[facility] Test Date: 2024-10[facility]02 Pat Name: Jennifer Wilson Department: Room: Gender: Female Validation Analyst: : 1960 Requested By: Marisol Chacon Order Number: [id number] Ying MD: Kay Bailey M.D. Measurements Intervals [place] Rate: 85 P: 51 SC: 153 QRS: 75 QRSD: 75 T: 58 QT: 369 QTc: 440 Interpretive Statements SINUS RHYTHM NONSPECIFIC T-WAVE ABNORMALITY Compared to ECG 10/02/2024 18:35:16 No significant changes Electronically Signed On 10-05-2024 20:53:36 BINGO WORKER by Kay Bailey M.D. [email or web address]
--- NOTE | 2024-10-02 21:05 | P.HP_ITS ---
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 Patient is stating that she was next-door to her daughter, daughter checked on her today around 6 PM when she was not able to say any word, she was not able to follow command and had weakness of her extremities, code stroke was called, she was evaluated by Dr. Kline she is status post TNKase CT head unremarkable CT head and neck no showing any stenosis, cervical CT showing left- sided C4-5-6 stenosis. Patient complained of right upper quadrant pain ultrasound did not show any cholecystitis patient complained of chest pain EKG nonischemic, troponins unremarkable EKG unremarkable At the time of my evaluation her NIH score is 0 She is hemodynamically stable Patient is stating that she is back to her baseline Stating that she has chronic neck pain, chronic back pain, sometimes she feels like her legs give up on her and she feels like Jell-O. Today her neck pain got worse she thought her neck and face will blow up from pain at that time she started having slurring of speech and weakness which was the concern of her daughter who is also a NUMERICAL CONTROL ROUTER OPERATOR. Patient endorses smoking 1 pack/day, does not drink alcohol, independent for daily activities Works as a NUMERICAL CONTROL ROUTER OPERATOR at the [employer] Patient is denying previous history of coronary artery disease, has history of right total knee arthroplasty 2022 Previous echo showed preserved ejection fraction with diastolic dysfunction Review of Systems 2 Const: Denies: fever(s) Eyes: Denies: change in vision ENMT: Denies: throat pain Card: Denies: chest pain Resp: Denies: dyspnea GI: Denies: coffee ground emesis : Denies: flank pain Musc: Reports: neck pain, back pain and extremity pain Skin/Breast: Denies: rash Neuro: Reports: headache(s), numbness in extremities and weakness in extremities Psych: Reports: anxiety Medications/Allergies Home Medications Medication Instructions Recorded Confirmed Last Taken Type albuterol sulfate 90 mcg/actuation 2 puff inhalation Q6H PRN 03/08/25/24 09/10/23 History aerosol inhaler (Ventolin HFA) Shortness Of Breath cyclobenzaprine 10 mg tablet 10 mg PO TID 02/17/20 08/25/24 09/17/23 History fluticasone 100 mcg-salmeterol 50 1 puff inhalation BID 02/17/20 08/25/24 09/18/23 History mcg/dose blistr powdr for inhalation (Advair Diskus) omega-3 fatty acids 500 mg capsule 500 mg PO BID 02/17/20 08/25/24 08/19/23 History pantoprazole 40 mg tablet,delayed 40 mg PO DAILY 02/17/20 08/25/24 09/17/23 History release (Protonix) cetirizine 10 mg tablet (Zyrtec) 10 mg PO DAILY 05/11/21 08/25/24 09/17/23 History duloxetine 60 mg capsule,delayed 120 mg PO DAILY 05/11/21 08/25/24 09/17/23 History release (Cymbalta) montelukast 10 mg tablet 10 mg PO DAILY 05/11/21 08/25/24 09/17/23 History (Singulair) nitroglycerin 0.4 mg sublingual 0.4 mg sublingual Q5M PRN chest 05/11/21 08/25/24 Unknown Rx tablet (Nitrostat) pain #25 tabs hydrochlorothiazide 12.5 mg tablet 25 mg PO DAILY 11/25/21 08/25/24 09/17/23 History isosorbide mononitrate 30 mg 30 mg PO BID #90 tabs 11/25/21 08/25/24 09/18/23 Rx tablet,extended release 24 hr metoprolol tartrate 25 mg tablet 37.5 mg (1.5 x 25 mg) PO BID #90 11/30/21 08/25/24 09/18/23 Rx tabs rosuvastatin 20 mg tablet 20 mg PO DAILY #30 tabs 08/29/22 08/25/24 09/17/23 Rx alprazolam 0.5 mg tablet 0.5 mg PO BEDTIME PRN Anxiety 11/11/22 08/25/24 09/18/23 History gabapentin 800 mg tablet 800 mg PO TID 11/11/22 08/25/24 09/17/23 History aspirin 325 mg tablet,delayed 325 mg PO DAILY #0 tabs 09/18/23 08/25/24 Unknown Rx release celecoxib 100 mg capsule (Celebrex) 100 mg PO BID #120 caps 12/03/23 08/25/24 Unknown Rx Allergies Allergy/AdvReac Type Severity Reaction Status Date / Time morphine Allergy Mild Rash/itchin Verified 08/25/24 15:19 g oxycodone [From Percocet] Allergy Mild Hives Verified 08/25/24 15:19 PFSH Acute 2 PFSH: Medical History (Updated 10/02/24 @ 21:46 by Merle Oliva MD) 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 Lumbar stenosis with neurogenic claudication Bilateral primary osteoarthritis of knee Skin infection of right knee Moderate pulmonary hypertension Tobacco use UTI (urinary tract infection) COPD (chronic obstructive pulmonary disease) Pneumonia Altered mental status Acute exacerbation of chronic obstructive airways disease Aspiration pneumonia HTN (hypertension) with goal to be determined Displacement of lumbar disc with radiculopathy Anxiety disorder COPD (chronic obstructive pulmonary disease) Depression Hypercholesterolemia Fibromyalgia Surgical History H/O section H/O: hysterectomy History of carpal tunnel surgery Family History Grandfather CAD (coronary artery disease) Grandmother CAD (coronary artery disease) Diabetes Hypertension Brother Diabetes Father Hypertension Mother Hypertension Social History Smoking and tobacco/nicotine status: current every day tobacco/nicotine user Alcohol intake: never Substance/Drug Use: never Lives independently: Yes Household members: spouse Marital status: Current occupational status: employed Current occupation: [employer] at [employer] Vitals/I&O/Wt Last Vital Signs Pulse 88 10/02/24 20:33 Resp 20 H 10/02/24 20:33 BP 121/85 10/02/24 20:33 Pulse Ox 94 10/02/24 20:33 Weight last 48 hrs Weight 81.647 kg Physical Exam 2 Narrative: NIH 0 Awake and alert female Sitting comfortably in her bed Currently on room air Nonfocal neuroexam S1, S2 I did not appreciate any wheezing or crackles Abdomen distended nontender No active chest pain S1, S2 Relatively no edema No weakness or focal deficit noted at all Patient is pleasant cooperative AOx3 GCS 15 She is able to tell me all the details, no memory lapses Data 10/02/24 18:08 10/02/24 18:08 A&P Assessment and plan (1) Moderate pulmonary hypertension: (2) Lumbar pain: (3) Displacement of lumbar disc with radiculopathy: (4) COPD (chronic obstructive pulmonary disease): (5) Tobacco use: (6) CVA (cerebral vascular accident): Plan Dysarthria and weakness of extremities Symptoms started 6 PM Patient arrived within 3-hour window Status post TNKase as per Dr. Kline Patient is endorsing improvement of symptoms after TNKase NIH 0 at the time of my evaluation Will follow-up with neuro consultation note At the time of my evaluation patient is hemodynamically stable no active chest pain abdominal pain or any active distress patient is hemodynamically stable without any focal deficits Will request echo with bubble study Repeat CT head after 18 to 24 hours Patient is stating that she has a metal in her knee she is not sure about compatibility with MRI, right knee was done by Dr. Bryson in 2022 No aspirin or Plavix for next 24 hours Add statins, hold aspirin her home regimen for now Discontinue celecoxib which can increase the chances of thrombus formation Request PT/OT no need of ST I do not appreciate any slurring of speech or dysarthria Monitor in ICU Patient works full-time as a NUMERICAL CONTROL ROUTER OPERATOR at [employer] Chronic neck pain, back pain No signs of cauda equina No sign of severe brachial plexus neuropathy She does have lumbar disc stenosis with neurogenic claudication No acute exacerbation at this point She can follow-up outpatient with Dr. Dasilva Patient is not diabetic does not have coronary disease has history of diastolic CHF EF 63% Patient complain of right upper quadrant pain ultrasound did not show any sign of cholecystitis Full code Cardiac diet DVT prophylaxis with SCDs avoiding anticoagulation because patient is status post TNKase Attestations 2 Medical Necessity Statement*: Anticipating discharge within 48 hours Diagnoses Moderate pulmonary hypertension I27.20 Lumbar pain M54.5 Displacement of lumbar disc with radiculopathy M51.16 COPD (chronic obstructive pulmonary disease) J44.9 Tobacco use Z72.0 CVA (cerebral vascular accident) I63.9
[2024-10-02 21:10] LABS: Troponin 5 2HR 8.32 ng/L (0-10); Troponin 5 2HR Delta 0.32 ABS# (0-10)
[2024-10-02 21:11] LABS: Lactic Acid level (Lactate) 1.2 mmol/L (0.5-2.2)
--- NOTE | 2024-10-02 22:18 | USCV_ITS ---
Jennifer Wilson Age: 63 Gender: F : 1960 Exam Date: 10/02/2024 22:40 Ordering Phys: Merle Oliva MD Technologist: ADEBAYO [place] [facility] [place]: CVA BP: 150 / 76 HR: 78 Rhythm: Sinus Technical Quality: Adequate MEASUREMENTS (Male / Female) Normal Values 2D ECHO LV Diastolic Diameter PLAX 4.6 cm 4.2 - 5.9 / 3.9 - 5.3 cm IVS Diastolic Thickness 1.4 cm 0.6 - 1.0 / 0.6 - 0.9 cm IVS Systolic Thickness 1.9 cm LVPW Diastolic Thickness 1.4 cm 0.6 - 1.0 / 0.6 - 0.9 cm LVPW Systolic Thickness 1.8 cm LVOT Diameter 1.6 cm LV Ejection Fraction 2D Teich 66.0 % LV Ejection Fraction MOD 4C 58.4 % LV Ejection Fraction MOD 2C 84.0 % LV Ejection Fraction 2C AL 84.9 % LA Diameter 3.4 cm Aorta at Sinotubular Diameter 2.3 cm IVC Diameter 1.1 cm M-MODE LA Ao Ratio MM 1.4 AV Cusp Separation MM 1.4 cm DOPPLER AV Peak Velocity 172.0 cm/s LVOT Peak Velocity 112.0 cm/s AV Area Cont Eq vti 1.3 cm squared AV Area Cont Eq pk 1.3 cm squared MV Peak Velocity 108.0 cm/s MV Area PHT 3.9 cm squared Mitral E to A Ratio 1.0 TV Peak E Velocity 49.0 cm/s PV Peak Velocity 92.0 cm/s FINDINGS Left Ventricle Normal left ventricular size, systolic function and wall thickness, with no regional wall motion abnormalities. Left ventricular ejection fraction is estimated at 60 %. Grade I/IV diastolic dysfunction (abnormal relaxation filling pattern), normal to mildly elevated filling pressures. Right Ventricle Right Atrium Left Atrium Normal left atrial size. No right to left or left to right and with or without Valsalva by using bubble study noted. Mitral Valve Thickened mitral valve. No mitral valve stenosis. Mild mitral valve regurgitation. Aortic Valve Tricuspid Valve Pulmonic Valve Pericardium Aorta IVC CONCLUSIONS This is a limited echo to assess PFO Normal left ventricular size, systolic function and wall thickness, with no regional wall motion abnormalities. Left ventricular ejection fraction is estimated at 60 %. Grade I/IV diastolic dysfunction (abnormal relaxation filling pattern), normal to mildly elevated filling pressures. Normal left atrial size. No right to left or left to right and with or without Valsalva by using bubble study noted. Thickened mitral valve. No mitral valve stenosis. Mild mitral valve regurgitation. There is no pericardial effusion. No PFO or intracardiac shunt noted. Merle Plummer MD (Electronically Signed) Final Date: 04 October 2024 16:35 S
--- NOTE | 2024-10-02 22:26 | PM.SAN ---
Stroke Alert Activation ED Arrival Date: 10/02/24 ED Arrival Time: 18:10 ED Physican at Bedside: 18:10 Last Known Normal/at Baseline: < 1 hour ago Other Last Known Well Infomation: A stroke alert was called I believe by triage. I could not identify who called a stroke alert but I called the ER and the staff were busy with multiple critical patients and no one could answer the phone. I tried several times and decided to proceed to the emergency department. The patient was wheeled into CAT scan just as I walked into CAT scan and I examined her as we transferred her from the stretcher to the CT table. She was ataxic when she attempted to make the transfer and she had high amplitude tremor in all 4 extremities and truncal titubation when she stood. Her speech was clear and she could tell me the events of the day as we got her into the scanner and I asked her to hold still for her CAT scan. I reviewed that on the monitor and it was unremarkable. Dr. Raymundo came to the emergency department after calling me and we reviewed the CT head together and agreed that with the findings of midline ataxia and ataxic tremor the patient should receive TNK and he ran to put the orders in while I followed the patient back to her room and talked with the patient and her daughter and son-in-law. She was well and work today. She has been having some pain in the base of her skull on the right side off and on for several weeks but it became very intense today and her daughter told her that she needed to come in to be evaluated. She was resistant to that idea but as she was arguing about it, her balance became impaired and on the way into the emergency room she stumbled and staggered and collapsed. Her daughter thought that her speech was slurred initially but by the time she saw Dr. Sawyer her speech had improved. She had some slurring of speech off and on during my exam. The patient and her daughter gave informed consent for TNK for what may be a posterior circulation stroke. She continues to complain of a headache at the base of her skull on the right side and has some tenderness there. Stroke Alert Activated by: Triage Stroke Alert Activation Time: 18:04 Stroke MD @ Bedside Time: 18:07 NIH Stroke Scale Time: 18:15 NIH stroke score NIHSS: Level Of Consciousness - 1a: 0 Level Of Consciousness Questions - 1b: Both Correct Level Of Consciousness Commands - 1c: Both Correct Best Gaze - 2: Normal Visual Stoner - 3: No Visual Loss Facial Palsy - 4: Normal Motor Arm Right - 5: Drift Motor Arm Left - 5: Drift Motor Leg Right - 6: No Drift Motor Leg Left - 6: No Drift Limb Ataxia - 7: Present In Two Limbs Sensory - 8: Mild To Moderate Loss (Right side less to touch, arm and leg and face) Best Language - 9: No Aphasia Dysarthia - 10: Mild/Moderate Dysarthia Extinction And Inattention - 11: 0 Score: Total Score: 6 Stroke Alert Data/Treatment Time to CT of Head: 18:10 CT Results Time: 18:14 CT Impression: Normal Stroke Risk Factors: hypertension and previous [place] tPA Started Time: tPA Started - Time: 18:30 tPA Admin Prior to Arrival: No Patient & Family Educated on: Risk Factors, Treament Plan and tPA Risks/Benefits Other Patient & Family Education: Need for tPA and need for hospitalization for further evaluation. Standardized Stroke Orders Used: Yes Other Information: CT angiogram shows no sign of basilar artery occlusion or vertebrobasilar disease. She has disc disease but it is on the opposite side from her neck pain. 1.No evidence of large vessel occlusion or acute thrombosis in the head. IMPRESSION: 1. No evidence of acute thrombosis or hemodynamically significant stenosis in the neck. 2. Severe left-sided foraminal stenosis at C4-C5 and C5-C6. Consider correlation with follow-up outpatient MRI to evaluate for neural impingement. Critical Care Time Critical Care Time: 30 - 74 mins Additional information about critical care time: Presentation suggesting an acute stroke in the posterior circulation A&P Assessment and plan (1) Acute CVA (cerebrovascular accident): She presented with diffuse ataxia and a right hemisensory defect, impaired gait. She had some features of possible psychological overlay but with the total score of 6 on stroke scale, risk factors of hypertension and heavy smoking, marked change in neurologic state within the last hour, thrombolytic was indicated. She was treated rapidly after obtaining informed consent. She will need repeat CT head in the morning to rule out hemorrhage. CT angiogram has already been completed at the time of this dictation and no further radiologic evaluation will be necessary in the hospital. Echocardiogram. Smoking cessation. Initiate Plavix and aspirin and overlap for 3 weeks followed by aspirin monotherapy. Statin. Check a sed rate. I did not feel her temporal arteries but her pain is posterior rather than anterior and I do not think temporal arteritis is a concern. She has enough degenerative disease in her spine to explain her neck pain and I will be glad to evaluate that as an outpatient. It might be sunshine to consider a short course of steroids over even 250 mg of Solu-Medrol IV if her head pain does not subside. Follow-up with neurology within 2 weeks in my office. (2) Neck pain: (3) Headache: (4) HTN (hypertension) with goal to be determined: (5) Right upper quadrant abdominal pain: Coding Level of Care Code Acute Code for [facility] Diagnoses Acute CVA (cerebrovascular accident) I63.9 Neck pain M54.2 Headache R51.9 HTN (hypertension) with goal to be determined I10 Right upper quadrant abdominal pain R10.11
[2024-10-02 22:55] LABS: Estmated Average Glucose 126
[2024-10-03] VITALS (36 sets, daily range): BP systolic 93–163; BP diastolic 8–101; PULSE 64–109; RESP 12–31; TEMP 36.7–37.2; O2SAT 92–99
[2024-10-03 00:14] LABS: Thyroid Stimulating Hormone 6.71 uIU/mL (0.27-4.20)
[2024-10-03 00:19] LABS: Vitamin B12 > 2000 pg/mL (232-1245)
[2024-10-03 07:40] LABS: Glucose Point of Care 118 mg/dL (70-110)
--- NOTE | 2024-10-03 08:39 | PC.NURSE ---
Patient refused their morning medication stating that you all have messed up my medication schedule and it's going to take me a long time to go back on my schedule . Patient was given education about the importance of taking their medication but patient still refused. Dr. Go was contacted and he ordered to call family and update them about what was going on and see if they could help.
[2024-10-03] MEDS: metoprolol tartrate 25 mg Tablet 37.5 MG PO (10:22)
[2024-10-03 11:28] LABS: Glucose Point of Care 106 mg/dL (70-110)
[2024-10-03] MEDS: ALPRAZolam 0.5 mg Tablet PO (11:32)
[2024-10-03 12:15] LABS: Basophils # 0.1 10^3/uL (0.0-0.1); Basophils % 0.9 %; Eosinophils # 0.2 10^3/uL (0.0-0.8); Eosinophils % 3.2 %; Hematocrit 37.8 % (36-47); Lymphocytes # 1.7 10^3/uL (0.8-4.8); Lymphocytes % 21.9 %; Mean Corpuscular HGB Conc 33.3 g/dL (30-55); Mean Corpuscular Hemoglobin 29.7 pg (27-33); Mean Corpuscular Volume 89.2 fl (85-98); Mean Platelet Volume 9.3 fL (7.4-10.4); Monocytes # 0.6 10^3/uL (0.2-0.9); Monocytes % 7.3 %; Neutrophils # 4.99 10^3/uL (1.8-7.7); Neutrophils % 66.4 %; Nucleated Red Blood Cells % 0 %; Platelet Count 249 10^3/cmm (157-399); Red Blood Count 4.24 10^6/uL (3.85-5.65); Red Cell Distribution Width 14.6 % (12.1-15.1); White Blood Count 7.52 10^3/uL (3.29-11.43)
[2024-10-03 12:38] LABS: Alanine Aminotransferase 23 U/L (0-33); Albumin Level 4.2 g/dL (3.5-5.2); Alkaline Phosphatase 93 U/L (35-105); Anion Gap 13.6 (5-19); Aspartate Amino Transferase 23 U/L (0-32); Blood Urea Nitrogen 18 mg/dL (8-23); Calcium 9.5 mg/dL (8.5-10.5); Carbon Dioxide 26 mmol/L (22-29); Chloride 104 mmol/L (98-107); Chol HDL Ratio 3.87 mg/dL (0.0-4.40); Cholesterol 182 mg/dL (0-200); Creatinine Clr Calc Pharmacy 117.4063; Globulin 2.7 g/dL (1.3-4.6); Glomerular Filtration Rate 101.3 mL/min (90-130); Glucose 110 mg/dL (65-115); HDL Cholesterol 47 mg/dL (60-100); Iron 85 ug/dL (37-145); LDL Cholesterol Calculated 105 mg/dL (50-129); Osmolality Calculated 293 mOsm/kg (285-295); Percent Saturation 23.1 % (20-50); Potassium 3.6 mmol/L (3.5-5.1); Sodium 140 mmol/L (136-145); Total Bilirubin 0.3 mg/dL (0.15-1.2); Total Iron Binding Capacity 367 mcg/dl; Total Protein 6.9 g/dL (6.6-8.7); Triglycerides 148 mg/dL (0-150); Unsaturated Iron Binding 282 ug/dL (112-347); VLDL Cholestrol Calculation 30 mg/dL (0-30)
--- NOTE | 2024-10-03 12:58 | PC.OT ---
Attempted OT evaluation with patient sleeping soundly; will attempt again at later time.
[2024-10-03 13:11] LABS: Free T4 Free Thyroxine 1.07 ng/dL (0.82-1.77); T3 Free 3.3 PG/ML (2.0-4.4)
[2024-10-03] MEDS: gabapentin 400 mg Capsule 800 MG PO (15:34)
[2024-10-03] MEDS: cyclobenzaprine 10 mg Tablet PO (15:34)
--- NOTE | 2024-10-03 16:00 | CTR_ITS ---
PROCEDURE INFORMATION: Exam: CT Head Without Contrast Exam date and time: 10/03/2024 4:11 PM Age: 63 years old Clinical indication: Altered mental status/memory loss; Confusion or disorientation; Additional info: CVA TECHNIQUE: Imaging protocol: Computed tomography of the head without contrast. Radiation optimization: All CT scans at this facility use at least one of these dose optimization techniques: automated exposure control; mA and/or kV adjustment per patient size (includes targeted exams where dose is matched to clinical indication); or iterative reconstruction. COMPARISON: CT angio headneck* [id number] 10/02/2024 7:58 PM RADIATION DOSE METRICS: Total DLP (mGy-cm): 1060.18 FINDINGS: Brain: Normal. No hemorrhage. Unremarkable white matter. No mass effect. Cerebral ventricles: No ventriculomegaly. Paranasal sinuses: Visualized sinuses are unremarkable. No fluid levels. Mastoid air cells: Visualized mastoid air cells are well aerated. Bones: Unremarkable. No acute fracture. Soft tissues: Unremarkable. CT/CT head wo con* [id number] IMPRESSION: No acute intracranial abnormality.
--- NOTE | 2024-10-03 17:13 | PM.DCS ---
Discharge Providers Date of Admission: 10/02/24 21:30 Date of Discharge: October 03, 2024 Attending Provider at Admission: Merle Oliva MD Attending Provider at Discharge: Raphael Go MD Consults: Consult neurology: Dr. 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 Patient is stating that she was next-door to her daughter, daughter checked on her today around 6 PM when she was not able to say any word, she was not able to follow command and had weakness of her extremities, code stroke was called, she was evaluated by Dr. Kline she is status post TNKase CT head unremarkable CT head and neck no showing any stenosis, cervical CT showing left-sided C4-5-6 stenosis. Patient complained of right upper quadrant pain ultrasound did not show any cholecystitis patient complained of chest pain EKG nonischemic, troponins unremarkable EKG unremarkable At the time of my evaluation her NIH score is 0 She is hemodynamically stable Patient is stating that she is back to her baseline Stating that she has chronic neck pain, chronic back pain, sometimes she feels like her legs give up on her and she feels like Jell-O. Today her neck pain got worse she thought her neck and face will blow up from pain at that time she started having slurring of speech and weakness which was the concern of her daughter who is also a NETWORK [employer] SUPER[employer]OR. 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 She was evaluated by neurologist in the ER and with concerns for acute CVA she received TNKase. Post TNKase her symptoms resolved. There was concern for chronic neck and back pain for which she follows up with Dr. Dasilva as an outpatient. CT did show C4-C6 stenosis. Patient was seen by PT and OT during hospitalization and she worked well with both therapies. She had right upper quadrant ultrasound for pain which ruled out cholecystitis. Repeat CT scan after 24 hours was stable. She has been discharged in medically stable condition on baby aspirin, statin along with continuation of her home medications with advised to follow-up with a primary care provider within next 1 week and with neurology for the next 2 weeks. Physical Exam Narrative: General: No acute distress, AO x3 HEENT: PERRLA, pupils bilaterally equal and reactive Chest: Normal vesicular breath sounds, no added sounds, equal good air entry bilaterally CVS: S1-S2 regular, no murmurs, no tachycardia, no gallops, no rubs Abdomen: Soft, nontender, no organomegaly, bowel sounds present Neuro: No focal deficits, no facial deformity, AO x3, power 5/5 in all limbs Discharge Data Studies Completed and Pending Completed Studies During Hospitalization Category Date Time Status CT cervical spin wo con* [id number] Stat Cat Scan 10/02/24 18:[address] head wo con* [id number] Routine Cat Scan 10/03/24 16:[address] head wo con* [id number] Stat Cat Scan 10/02/24 18:10 Completed CTA head neck [CT angio headneck* [id number]] Stat Cat Scan 10/02/24 18:11 Completed XR chest 1V portable [id number] Stat Exams 10/02/24 18:11 Completed US gall bladder [id number] Stat Ultrasound 10/02/24 18:57 Completed Pending at discharge Category Date Time Status Complete Blood Count w/Auto AM LABS Lab 10/04/24 04:00 Ordered Comprehensive Metabolic Panel AM LABS Lab 10/04/24 04:00 Ordered Folate Level AM LABS Lab 10/04/24 04:00 Ordered MAG [Magnesium] AM LABS Lab 10/04/24 04:00 Ordered MAG [Magnesium] AM LABS Lab 10/05/24 04:00 Ordered MAG [Magnesium] AM LABS Lab 10/06/24 04:00 Ordered CV. echo lmt wo/w bubble [id number] Routine Ultrasound 10/02/24 22:18 Taken Radiology Impressions Cervical Spine CT 10/02/24 18:10 IMPRESSION: 1. No evidence of fracture or subluxation of the cervical spine. 2. Possible contacting/indenting of the cord at C6-C7. Consider correlation with follow-up outpatient MRI to evaluate for neural impingement. 3. Moderate-severe left-sided foraminal stenosis at C4-C5 and C5-C6. Chest X-Ray 10/02/24 18:11 IMPRESSION: 1. Left basilar hazy opacities compatible with atelectasis or developing infection in the proper clinical setting. Head/Neck CTA 10/02/24 18:11 IMPRESSION: 1. No evidence of large vessel occlusion or acute thrombosis in the head. IMPRESSION: 1. No evidence of acute thrombosis or hemodynamically significant stenosis in the neck. 2. Severe left-sided foraminal stenosis at C4-C5 and C5-C6. Consider correlation with follow-up outpatient MRI to evaluate for neural impingement. REFERENCES: NASCET CRITERIA. The degree of stenosis in the cervical segment of the internal carotid artery is based on NASCET criteria. Normal is no stenosis. Mild is less than 50% stenosis. Moderate is 50-69% stenosis. Severe is 70% to 99% stenosis. Total occlusion is no detectable patent lumen. Gallbladder Ultrasound 10/02/24 18:57 IMPRESSION: 1. No cholelithiasis or sonographic evidence of acute cholecystitis. Head CT 10/03/24 16:00 IMPRESSION: No acute intracranial abnormality. Laboratory Results WBC 7.52 10^3/uL (3.29-11.43) 10/03/24 12:03 RBC 4.24 10^6/uL (3.85-5.65) 10/03/24 12:03 Hgb 12.60 g/dL (11.27-16.99) 10/03/24 12:03 Hct 37.8 % (36-47) 10/03/24 12:03 MCV 89.2 fl (85-98) 10/03/24 12:03 MCH 29.7 pg (27-33) 10/03/24 12:03 MCHC 33.3 g/dL (30-55) 10/03/24 12:03 RDW 14.6 % (12.1-15.1) 10/03/24 12:03 Plt Count 249 10^3/cmm (157-399) 10/03/24 12:03 MPV 9.3 fL (7.4-10.4) 10/03/24 12:03 Neut % (Auto) 66.4 % 10/03/24 12:03 Lymph % (Auto) 21.9 % 10/03/24 12:03 [place] % (Auto) 7.3 % 10/03/24 12:03 Eos % (Auto) 3.2 % 10/03/24 12:03 Baso % (Auto) 0.9 % 10/03/24 12:03 Neut # (Auto) 4.99 10^3/uL (1.8-7.7) 10/03/24 12:03 Lymph # (Auto) 1.7 10^3/uL (0.8-4.8) 10/03/24 12:03 [place] # (Auto) 0.6 10^3/uL (0.2-0.9) 10/03/24 12:03 Eos # (Auto) 0.2 10^3/uL (0.0-0.8) 10/03/24 12:03 Baso # (Auto) 0.1 10^3/uL (0.0-0.1) 10/03/24 12:03 Nucleated RBC % (auto) 0 % 10/03/24 12:03 Nucleated RBCs # 0.0 /100WBC 10/03/24 12:03 Sodium 140 mmol/L (136-145) 10/03/24 12:03 Potassium 3.6 mmol/L (3.5-5.1) 10/03/24 12:03 Chloride 104 mmol/L (98-107) 10/03/24 12:03 Carbon Dioxide 26 mmol/L (22-29) 10/03/24 12:03 Anion Gap 13.6 (5-19) 10/03/24 12:03 BUN 18 mg/dL (8-23) 10/03/24 12:03 Creatinine 0.6 mg/dL (0.5-0.9) 10/03/24 12:03 GFR Calculation 101.3 mL/min (90-130) 10/03/24 12:03 Glucose 110 mg/dL (65-115) 10/03/24 12:03 POC Glucose 106 mg/dL (70-110) 10/03/24 11:25 Estimat Average Glucose 126 10/02/24 18:08 Hemoglobin A1c 6.0 % (4.0-6.0) 10/02/24 18:08 Calculated Osmolality 293 mOsm/kg (285-295) 10/03/24 12:03 Lactic Acid 2.8 mmol/L (0.5-2.2) H 10/02/24 18:08 Lactic Acid (Sepsis) 1.2 mmol/L (0.5-2.2) 10/02/24 20:42 Calcium 9.5 mg/dL (8.5-10.5) 10/03/24 12:03 Iron 85 ug/dL (37-145) 10/03/24 12:03 TIBC 367 mcg/dl 10/03/24 12:03 % Saturation 23.1 % (20-50) 10/03/24 12:03 Unsat Iron Binding 282 ug/dL (112-347) 10/03/24 12:03 Total Bilirubin 0.3 mg/dL (0.15-1.2) 10/03/24 12:03 AST 23 U/L (0-32) 10/03/24 12:03 ALT 23 U/L (0-33) 10/03/24 12:03 Alkaline Phosphatase 93 U/L (35-105) 10/03/24 12:03 Troponin T Baseline 8 ng/L (0-10) 10/02/24 18:08 Troponin T 120 Minute 8.32 ng/L (0-10) 10/02/24 20:42 Delta Troponin T 0.32 ABS# (0-10) 10/02/24 20:42 Total Protein 6.9 g/dL (6.6-8.7) 10/03/24 12:03 Albumin 4.2 g/dL (3.5-5.2) 10/03/24 12:03 Globulin 2.7 g/dL (1.3-4.6) 10/03/24 12:03 Triglycerides 148 mg/dL (0-150) 10/03/24 12:03 Cholesterol 182 mg/dL (0-200) 10/03/24 12:03 LDL Cholesterol, Calc 105 mg/dL (50-129) 10/03/24 12:03 Total VLDL Cholesterol 30 mg/dL (0-30) 10/03/24 12:03 HDL Cholesterol 47 mg/dL (60-100) L 10/03/24 12:03 Cholesterol/HDL Ratio 3.87 mg/dL (0.0-4.40) 10/03/24 12:03 Vitamin B12 > 2000 pg/mL (232-1245) H 10/02/24 20:12 TSH 6.71 uIU/mL (0.27-4.20) H 10/02/24 20:12 Free T4 1.07 ng/dL (0.82-1.77) 10/03/24 12:03 Free T3 3.3 PG/ML (2.0-4.4) 10/03/24 12:03 Urine Color Yellow (Yellow) 10/02/24 18:58 Urine Appearance Clear (CLEAR) 10/02/24 18:58 Urine pH 6.0 (5-7) 10/02/24 18:58 Ur Specific [place] 1.028 (1.005-1.030) 10/02/24 18:58 Urine Protein Negative (Negative) 10/02/24 18:58 Urine Glucose (UA) Negative (Normal) 10/02/24 18:58 Urine Ketones Negative (Negative) 10/02/24 18:58 Urine Blood Negative (Negative) 10/02/24 18:58 Urine Nitrate Negative (Negative) 10/02/24 18:58 Urine Bilirubin Negative (Negative) 10/02/24 18:58 Urine Urobilinogen 1.0 mg/dL (Negative) 10/02/24 18:58 Ur Leukocyte Esterase 1+ (Negative) A 10/02/24 18:58 Urine RBC 3-5 /hpf (0-2) 10/02/24 18:58 Urine WBC 11-20 /hpf (0-5) H 10/02/24 18:58 Ur Squamous Epith Cells 0-5 /hpf (0-5) 10/02/24 18:58 Amorphous Sediment Not Reportable 10/02/24 18:58 Urine Bacteria None seen /hpf (NONE) 10/02/24 18:58 Hyaline Casts 2.05 /lpf 10/02/24 18:58 Vitals Last Vital Signs Temp 99.0 F 10/03/24 09:30 Pulse 74 10/03/24 16:00 Resp 24 H 10/03/24 16:00 BP 132/77 10/03/24 16:30 Pulse Ox 93 10/03/24 16:00 O2 Del Method Room Air 10/03/24 16:00 Discharge Plan Discharge Patient Disposition: Home Condition: Stable Prescriptions: New levofloxacin 750 mg Tablet 750 mg PO DAILY Qty: 5 0RF aspirin 81 mg capsule 81 mg PO DAILY Qty: 30 0RF Continued isosorbide mononitrate 30 mg tablet extended release 24 hr 30 mg PO BID Qty: 90 3RF fluticasone propion-salmeterol [Advair Diskus] 100-50 mcg/dose blister with device 1 puff INHALATION BID omega-3 fatty acids 500 mg capsule 500 mg PO BID pantoprazole [Protonix] 40 mg tablet,delayed release (DR/EC) 40 mg PO DAILY cyclobenzaprine 10 mg tablet 10 mg PO TID duloxetine [Cymbalta] 60 mg capsule,delayed release(DR/EC) 120 mg PO DAILY montelukast [Singulair] 10 mg tablet 10 mg PO DAILY cetirizine [Zyrtec] 10 mg tablet 10 mg PO DAILY ascorbic acid (vitamin C) [Vitamin C] 500 mg Tablet 250 mg PO BID vitamin B complex Tablet 1 tab PO BID hydrochlorothiazide 25 mg tablet 25 mg PO DAILY Excedrin Extra Strength 250-250-65 mg Tablet 1 tab PO DAILY rosuvastatin 20 mg tablet 20 mg PO BEDTIME metoprolol tartrate 25 mg tablet 25 mg PO BID alprazolam 0.5 mg tablet 0.5 mg PO BEDTIME PRN (Reason: Anxiety) gabapentin 800 mg tablet 800 mg PO TID Discharge Orders: Discharge Order (Routine); Ordered 10/03/24 Ordered By: Raphael Go Referrals: Randy Roy Jr, MD [Primary Care Provider] - 7-10 days Rebeca Kline MD [Physician] - 2 weeks Discharge Diet: Cardiac Discharge Activity: Resume usual activity and Increase activity as tolerated Patient Instructions: Opioid Safety Activity Restrictions/Additional Instructions: Follow-up with neurology in 2 weeks. Baby aspirin has been added to your medication list. Discharge Attestations Time Spent in Discharge Care*: greater than 30 min Specific Discharge Activities: educating patient, discussing with pcp/other providers, discussing with manager of case/social workers/dc planners, documenting/other paperwork and evaluating patient/reviewing data Status at Discharge: Cognitive status at discharge: cognitively intact, Behavioral status at discharge: can be uncooperative and independent in ADL's, Functional status at discharge: independent ambulation, Overall status at discharge: patient is back to baseline Quality Metrics Clinical Quality Measures [ No reported AMI, CVA or VTE this stay] Coding Level of Care Code 78032 Total time (in minutes) for Discharge: 60 Diagnoses Acute CVA (cerebrovascular accident) I63.9 Neck pain M54.2 Headache R51.9 HTN (hypertension) with goal to be determined I10 Right upper quadrant abdominal pain R10.11
--- NOTE | 2024-10-03 17:55 | PC.NURSE ---
Patient was given all discharge instructions and prescriptions. All belongings were sent with the patient. Follow up appointments were made and discussed with the patient. IV was discontinued. Patient was stable during discharge.
== END 2024-10-03 17:51 | disposition home or self-care (01) ==
LOC: ER 21:03 → ICU 21:43
PROVIDERS: Admitting Provider Internal Medicine; Emergency Provider Emergency Medicine; PCP Family Medicine; Visit Provider Student in an Organized Health Care Education/Training Program
DX: I63.9 Cerebral infarction, unspecified (principal); R29.700 NIHSS score 0; M54.2 Cervicalgia; R51.9 Headache, unspecified; I10 Essential (primary) hypertension; R10.11 Right upper quadrant pain; J44.9 Chronic obstructive pulmonary disease, unspecified; M79.7 Fibromyalgia; F17.200 Nicotine dependence, unspecified, uncomplicated; F41.9 Anxiety disorder, unspecified; F32.A Depression, unspecified; E78.00 Pure hypercholesterolemia, unspecified
CPT/HCPCS: 36416; 70450; 70496; 70498; 71045; 72125; 76705; 80053; 80061; 81001; 82607; 82962; 83036; 83540; 83550; 83605; 84439; 84443; 84481; 84484; 85025; 93005; 96374; 96375; 96376; 97161; 99291; C8924; G0378; J0696; J1171; J2405; J3101

== ENCOUNTER 2024-11-24 08:56 | Outpatient (CLI) | payer BC, SELFPAY ==
--- NOTE | 2024-11-24 09:30 | MR_ITS ---
WS: [id number] MRI CERVICAL SPINE NONCONTRAST TECHNIQUE: Sagittal T1, T2 and STIR imaging. Axial T2, gradient, and fiesta imaging. CLINICAL INFORMATION: M54.2 - Cervicalgia COMPARISON: MRI 2013 and 2014 FINDINGS: Moderate spondylitic changes progressed since 2015. Straightening of the normal cervical lordosis. Disc bulging worse at C6-7. Central protrusion with sl ight indentation cervical cord at this level with mild central canal stenosis progressed compared to previous. C2-C3: Mild RIGHT bony foraminal narrowing. Mild facet arthropathy. C3-C4: Mild to moderate LEFT and no significant RIGHT bony foraminal narrowing. Mild facet arthropath y. C4-C5: Severe LEFT bony foraminal narrowing. RIGHT foramen is patent. Spinal canal is patent. Moderat e LEFT facet arthropathy. C5-C6: Mild LEFT greater than RIGHT bony foraminal narrowing. Spinal canal is patent. C6-C7: Shallow central protrusion with slight indentation of the cervical cord. Mild central canal st enosis. Severe LEFT and moderate RIGHT bony foraminal narrowing. Uncovertebral joint hypertrophy. C7-T1: Shallow central protrusion. Mild central canal stenosis. Moderate LEFT and mild RIGHT bony for aminal narrowing. Small disc protrusions in the upper thoracic spine at T2-T4. Visualized brain stem structures: Normal. Prevertebral soft tissues: Normal. MR/MR cervical spin wo con* [id number] IMPRESSION: 1. Progressed spondylitic changes cervical spine. 2. Mild central canal stenosis C6-C7 and C7-T1 progressed compared to previous with indentation cervical cord worse at C6-7. 3. Moderate to severe bony foraminal narrowing worse at LEFT C4-5, LEFT C6-7 a nd LEFT C7-T1.
== END 2024-11-24 08:57 | disposition home or self-care (01) ==
LOC: RAD 08:57
PROVIDERS: PCP Family Medicine; Visit Provider Specialist
DX: G44.001 Cluster headache syndrome, unspecified, intractable (principal); M46.82 Other specified inflammatory spondylopathies, cervical region; M48.02 Spinal stenosis, cervical region; M48.03 Spinal stenosis, cervicothoracic region; M50.323 Other cervical disc degeneration at C6-C7 level; M47.892 Other spondylosis, cervical region; M50.223 Other cervical disc displacement at C6-C7 level; M50.23 Other cervical disc displacement, cervicothoracic region; M51.24 Other intervertebral disc displacement, thoracic region
CPT/HCPCS: 72141

== ENCOUNTER 2024-12-10 10:31 | Outpatient (CLI) | payer BC, SELFPAY ==
--- NOTE | 2024-12-10 11:15 | USCV_ITS ---
Jennifer Wilson Age: 63 Gender: F : 1960 Exam Date: 12/10/2024 10:46 Ordering Phys: Rebeca Kline MD Technologist: CT Exam [place] [facility] [place]: as BP: 119 / 69 HR: 56 Rhythm: Sinus Technical Quality: Adequate MEASUREMENTS (Male / Female) Normal Values 2D ECHO LVOT Diameter 2.0 cm LV Ejection Fraction MOD 4C 57.2 % LV Ejection Fraction MOD 2C 53.8 % LV Ejection Fraction 2C AL 52.3 % LA Diameter 2.8 cm RA Systolic Volume 4C AL 46.7 ml RA Systolic Volume 4C MOD 43.5 ml Aorta at Sinotubular Diameter 1.6 cm IVC Diameter 1.6 cm M-MODE LA Ao Ratio MM 1.4 AV Cusp Separation MM 1.3 cm DOPPLER AV Peak Velocity 184.0 cm/s LVOT Peak Velocity 98.0 cm/s AV Area Cont Eq vti 1.7 cm squared AV Area Cont Eq pk 1.8 cm squared MV Peak Velocity 93.0 cm/s MV Area PHT 3.7 cm squared Mitral E to A Ratio 1.4 TV Peak Velocity 297.0 cm/s TR Peak Velocity 366.5 cm/s TR Peak Gradient 53.7 mmHg TR Mean Velocity 285.0 cm/s TR Mean Gradient 36.4 mmHg TR Velocity Time Integral 85.5 cm PV Peak Velocity 89.5 cm/s FINDINGS Left Ventricle Normal left ventricular size, systolic function and wall thickness, with no regional wall motion abnormalities. Left ventricular ejection fraction is estimated at 55 %. Grade II/IV diastolic dysfunction, moderately elevated filling pressures. Right Ventricle The right ventricle is normal in size and function. Right Atrium The right atrium is normal in size. Left Atrium The left atrium is normal in size. Mitral Valve Thickened mitral valve. Mild mitral annular calcification. No mitral valve stenosis. Mild mitral valve regurgitation. Aortic Valve Structurally normal aortic valve without significant sclerosis or stenosis. There is no aortic regurgitation. Tricuspid Valve Mild tricuspid valve regurgitation. Pulmonic Valve Trace pulmonary valve regurgitation. Pericardium Normal pericardium without effusion. Aorta Normal ascending aorta dimension. IVC The inferior vena cava appears normal. CONCLUSIONS Normal left ventricular size, systolic function and wall thickness, with no regional wall motion abnormalities. Left ventricular ejection fraction is estimated at 55 %. Grade II/IV diastolic dysfunction, moderately elevated filling pressures. Thickened mitral valve. Mild mitral annular calcification. No mitral valve stenosis. Mild mitral valve regurgitation. Mild tricuspid valve regurgitation. There is no pericardial effusion. Right atrial pressure is around 5 mm of mercury. Merle Plummer MD (Electronically Signed) Final Date: 11 December 2024 10:08 S
== END 2024-12-10 10:32 | disposition home or self-care (01) ==
LOC: RAD 10:31
PROVIDERS: PCP Family Medicine; Visit Provider Specialist
DX: M54.2 Cervicalgia (principal); R51.9 Headache, unspecified; I34.81 Nonrheumatic mitral (valve) annulus calcification; I34.0 Nonrheumatic mitral (valve) insufficiency; I07.1 Rheumatic tricuspid insufficiency; R93.1 Abnormal findings on diagnostic imaging of heart and coronary circulation
CPT/HCPCS: 93306